=== PATIENT | male | born 1945 | race Caucasian/White ===

== ENCOUNTER 2019-10-01 12:26 | Emergency (ER) | payer MEDICARE, SELFPAY ==
[2019-10-01 12:29] VITALS: BP 159/99; PULSE 110; RESP 19; TEMP 36.4; O2SAT 100
--- NOTE | 2019-10-01 13:25 | ED.MALEGU ---
HPI - Male Genitourinary General Chief complaint: Urogenital-Male Stated complaint: plumbing problem Time Seen by Provider: 10/01/19 12:59 Source: patient Mode of arrival: ambulatory Limitations: no limitations History of Present Illness HPI Narrative: This patient is a 74 year old male who presents for evaluation of dysuria, urinary urgency and urinary hesitancy for 3 days. PAtient reports he has an increased urge to urinate and when he does it is only dribbles. He also reports burning with urination.HE had lower abdominal pressure but that resolved after taking over the counter prostate medication. He denies nausea, vomiting, back pain, fever or chills. He denies previous history of prostate enlargement or urinary retention. MD Complaint: dysuria Related Data Home Medications Medication Instructions Recorded Confirmed atorvastatin 10/01/19 lisinopril-hydrochlorothiazide tablet 10/01/19 triamcinolone acetonide TOPICAL 10/01/19 Allergies Allergy/AdvReac Type Severity Reaction Status Date / Time No Known Allergies Allergy Unknown Verified 10/01/19 12:36 Review of Systems Review of Systems: All systems reviewed & are unremarkable except as noted in HPI and below PMFSH Past Medical History Medical History (Updated 10/01/19 @ 14:22 by Lisa Trinidad MD) Hypertension Kidney stones Surgical History Surgical History (Updated 10/01/19 @ 13:29 by Lisa Trinidad MD) H/O lithotripsy Social History Social History (Updated 10/01/19 @ 13:30 by Lisa Trinidad MD) Smoking packs per day: 1 Smoking cigarettes per day: 20.0 Alcohol intake: never Substance use: never Exam Narrative: Exam Narrative: GENERAL: Well-appearing, well-nourished, and in no acute distress. HEAD: Normocephalic, atraumatic EYES: PERRLA and EOMI, conjunctiva clear without discharge THROAT:Mucous membranes moist, Oropharynx normal without erythema, exudate, peritonsillar swelling or fluctuance NECK: Supple, without lymphadenopathy or mass RESPIRATORY: No respiratory distress, Airway patent, Respirations non-labored, Clear to auscultation without rales, rhonchi or wheeze HEART: Regular rate and rhythm. No murmur heard. Normal peripheral pulses. ABDOMEN: Soft, nontender, nondistended, normal active bowel sounds. No masses. No rebound or guarding, No organomegaly. EXTREMITIES: No edema, normal strength with full range of motion. SKIN: Warm, dry, normal color without rash NEURO: Alert and oriented x3. CN 2-12 grossly intact. No focal deficits. PSYCH: Normal mood and affect. Course Reevaluation(s) Reevaluation #1: Patient had bladder scan performed and he only had 100 cc in bladder. He was able to urinate . He will be treated for UTI and placed on flomax. Date: 10/01/19 Time: 14:21 Vital Signs Vital signs: Vital Signs Temperature 97.6 F 10/01/19 12:29 Pulse Rate 110 H 10/01/19 12:29 Respiratory Rate 19 10/01/19 12:29 Blood Pressure 159/99 H 10/01/19 12:29 Pulse Oximetry 100 10/01/19 12:29 Temperature 97.6 F 10/01/19 12:29 Pulse Rate 90 10/01/19 14:54 Respiratory Rate 20 10/01/19 14:54 Blood Pressure 142/80 H 10/01/19 14:54 Pulse Oximetry 99 10/01/19 14:54 MDM - Male Genitourinary Lab Data Attestation: I reviewed the patient's lab results. Labs: Lab Results 10/01/19 Range/Units 13:34 Urine Color Yellow (Yellow) Urine Appearance Clear (Clear) Urine pH 6.0 (5.0-9.0) Ur Specific [place] 1.019 (1.001-1.035) Urine Protein 2+ H (Negative) mg/dL Urine Glucose (UA) Negative (Negative) mg/dL Urine Ketones Negative (Negative) mg/dL Ur Blood (Man) 1+ H (Negative) Urine Nitrate Negative (Negative) Urine Bilirubin Negative (Negative) Urine Urobilinogen 2.0 H (<2.0) mg/dL Leukocyte Esterase Rfl 1+ H (Negative) ARMIDA/UL Urine RBC 21-50 H (0-2) /hpf Urine WBC 16-20 H /hpf Urine Bacteria Trace /hpf Hyaline Casts
[2019-10-01 13:44] LABS: Add Urine Microscopic? YES; Appearance Urine Clear (Clear); Bacteria Urine Trace /hpf; Bilirubin Urine Negative (Negative); Blood Urine 1+ (Negative); Color Urine Yellow (Yellow); Glucose Urine UA Negative (Negative); Ketones Urine Negative (Negative); Leukocyte Esterase Ur 1+ LEU/UL (Negative); Mucus Urine Few /lpf; Nitrate Urine Negative (Negative); Protein Urine 2+ mg/dL (Negative); RBC Urine 21-50 /hpf (0-2); Specific Grav Ur 1.019 (1.001-1.035); WBC Urine 16-20 /hpf
[2019-10-01] MEDS: cefTRIAXone 1 GM VIAL IM (14:45)
[2019-10-01] MEDS: LIDOCAINE HCL 1% LOCAL INJ 20 ML VIAL (14:45)
[2019-10-01 14:54] VITALS: BP 142/80; PULSE 90; RESP 20; O2SAT 99
== END 2019-10-01 14:56 | disposition home or self-care (01) ==
PROVIDERS: Emergency Medicine; Emergency Provider General Practice; PCP Family Medicine
DX: N39.0 Urinary tract infection, site not specified (principal); Z87.442 Personal history of urinary calculi; I10 Essential (primary) hypertension; F17.210 Nicotine dependence, cigarettes, uncomplicated
CPT/HCPCS: 81001; 87077; 87086; 87088; 96372; 99283; J0696

== ENCOUNTER 2020-03-12 07:34 | Outpatient (CLI) | payer MEDICARE, SELFPAY ==
--- NOTE | ~2020-03-12 | US_ITS ---
EXAMINATION: US aorta DATE: 03/12/2020 15:29 INVENTORY CONTROL ANALYST INDICATION: Abdominal aortic aneurysm TECHNIQUE: Grayscale, color Doppler, and pulsed Doppler images of the aorta and common iliac arteries were obtained. COMPARISON: 09/04/2018. FINDINGS: The proximal aorta measures 3.4 cm greatest sagittal dimension. The mid aorta measures 4 cm greatest sagittal dimension. The distal aorta measures 2.4 cm greatest sagittal dimension. The right common in ternal iliac artery measures 1.6 cm. The left common iliac artery measures 1.8 cm. There is diffuse a therosclerosis. IMPRESSION: 1. Stable suprarenal fusiform abdominal aortic aneurysm measuring 4 cm greatest sagittal dimension. Reviewed, dictated and finalized at location A. NTORY CONTROL ANALYST
== END 2020-03-12 07:35 | disposition home or self-care (01) ==
LOC: ANHIMG 07:40
PROVIDERS: PCP Family Medicine; Visit Provider Family Medicine
DX: I71.4 Abdominal aortic aneurysm, without rupture (principal)
CPT/HCPCS: 76775

== ENCOUNTER 2021-01-09 12:06 | Emergency (ER) | payer MEDICARE, SELFPAY ==
[2021-01-09] VITALS (11 sets, daily range): BP systolic 139–166; BP diastolic 81–100; PULSE 98–113; RESP 22–28; O2SAT 93–97
--- NOTE | ~2021-01-09 | XR_ITS ---
EXAMINATION: XR chest 2V EXAM DATE: 01/09/2021 12:26 INDICATION: Shortness of breath. TECHNIQUE: Frontal and lateral projections of the chest obtained and reviewed. There is no prior keshia dy for comparison. FINDINGS: The lungs are hyperinflated which can be seen with chronic obstructive pulmonary disease ( a clinical diagnosis of functional impairment), but is not diagnostic of it. The lungs are clear. T here are no pleural effusions. The cardiomediastinal silhouette is within normal limits. There is n o pneumothorax suspected. The bones and soft tissues are unremarkable. IMPRESSION: 1. No acute cardiopulmonary findings. 2. Hyperinflation. Reviewed, dictated and finalized at location B.
--- NOTE | 2021-01-09 12:11 | ECG_ITS ---
Measurements Intervals [place] Rate: 117 P: 46 [place]: 176 QRS: -28 QRSD: 90 T: 87 QT: 409 QTc: 571 Interpretive Statements SINUS TACHYCARDIA FREQUENT VENTRICULAR PREMATURE COMPLEXES INCOMPLETE RIGHT BUNDLE BRANCH BLOCK BORDERLINE ST-T WAVE ABNORMALITY- HIGH LATERAL LEADS BASELINE ARTIFACT- I, II, III, AVR, AVL, AVF, V1, V3-V6 ABNORMAL ECG Electronically Signed On 01-09-2021 12:47:05 CDT by Alejo Cyr D.O.
--- NOTE | 2021-01-09 12:52 | ED.GENADULT ---
HPI - General Adult General Chief complaint: Shortness of Breath/Dyspnea Stated complaint: sob Time Seen by Provider: 01/09/21 12:46 Source: patient and family Mode of arrival: ambulatory Limitations: no limitations History of Present Illness HPI narrative: Patient is here for shortness of breath. Is been going on for several months but worse in the last week. He is unable to tolerate any humidity and he is unable to lie flat in bed usually sleeps in his recliner, he has had extensive swelling of both his lower extremities. He is unable to urinate a full stream and is currently being treated for a UTI. kong lopez at discharge Onset (ago): week(s) Related Data Home Medications Medication Instructions Recorded Confirmed atorvastatin HS 10/01/19 lisinopril-hydrochlorothiazide tablet DAILY 10/01/19 triamcinolone acetonide TOPICAL 10/01/19 ciprofloxacin HCl BID 01/09/21 Allergies Allergy/AdvReac Type Severity Reaction Status Date / Time No Known Allergies Allergy Unknown Verified 01/09/21 12:38 Review of Systems Review of Systems: All systems reviewed & are unremarkable except as noted in HPI and below PMFSH Past Medical History Medical History (Updated 01/09/21 @ 18:21 by Mohini Aburto PA-C) Hypertension Kidney stones Surgical History Surgical History (Updated 10/01/19 @ 13:29 by Lisa Trinidad MD) H/O lithotripsy Social History Social History (Updated 10/01/19 @ 13:30 by Lisa Trinidad MD) Smoking packs per day: 1 Smoking cigarettes per day: 20.0 Alcohol intake: never Substance use: never Course Course Emergency Course: Has put out 1800 cc of urine with Lasix. BNP is surprisingly low. Patient states he does feel somewhat better after the Lasix and [address] Jaquez primary care physician. He gave recommendations for home medication regimen and follow-up with him. Pt doesn't want Symbicort. Will discharge with albuterol only. Pt is feeling better and lung sounds are improved. Vital Signs Vital signs: Vital Signs Pulse Rate 113 H 01/09/21 12:29 Respiratory Rate 23 H 01/09/21 12:29 Blood Pressure 166/90 H 01/09/21 12:29 Pulse Oximetry 97 01/09/21 12:29 Pulse Rate 108 H 01/09/21 15:15 Respiratory Rate 26 H 01/09/21 15:15 Blood Pressure 140/90 01/09/21 15:15 Pulse Oximetry 93 01/09/21 15:15 Medical Decision Making Vital Signs Vital Signs: Vital Signs Pulse Rate 113 H 01/09/21 12:29 Respiratory Rate 23 H 01/09/21 12:29 Blood Pressure 166/90 H 01/09/21 12:29 Pulse Oximetry 97 01/09/21 12:29 Pulse Rate 108 H 01/09/21 15:15 Respiratory Rate 26 H 01/09/21 15:15 Blood Pressure 140/90 01/09/21 15:15 Pulse Oximetry 93 01/09/21 15:15 Lab Data Result diagrams: 01/09/21 12:44 01/09/21 13:28 Labs: Lab Results 01/09/21 01/09/21 01/09/21 Range/Units 12:44 13:27 13:28 WBC 11.3 H (4.5-10.0) K/mm3 RBC 5.32 (4.6-6.20) M/mm3 Hgb 16.2 (14.0-18.0) g/dL Hct 51.7 (42.0-52.0) % MCV 97.2 (80-100) fl MCH 30.5 (26-34) pg MCHC 31.3 L (32-36) g/dl RDW 13.2 (11.5-14.5) % Plt Count 254 (150-375) k/mm3 MPV 10.4 (7.4-10.4) fl Immature Gran % (Auto) 0.6 H (0-0.5) % Neut % (Auto) 67.6 (45.5-73.1) % Lymph % (Auto) 19.0 (18.3-44.2) % [place] % (Auto) 11.1 H (2.6-8.5) % Eos % (Auto) 1.2 (0-4.4) % Baso % (Auto) 0.5 (0.2-1.2) % Lymph # (Auto) 2.14 (0.9-3.2) K/mm3 [place] # (Auto) 1.3 H (0.1-0.6) K/mm3 Eos # (Auto) 0.1 (0-0.3) K/mm3 Baso # (Auto) 0.1 (0.0-0.1) K/mm3 Abs Immat Gran (auto) 0.07 H (0.00-0.031) K/mm3 Absolute Neuts (auto) 7.6 H (1.3-6.7) K/mm3 Absolute Nucleated RBC 0.0 (0.0-0.012) K/mm3 Nucleated RBC % 0.0 (0.0-0.2) % Platelet Estimate Adequate (Adequate) % Immature Plt Fraction 4.1 (0.9-11.2) % Sodium 138 (137-145) mmol/L Potassium 4.1 (3.4-5.
[2021-01-09 12:58] LABS: Basophils Absolute Auto 0.1 K/mm3 (0.0-0.1); Basophils Percent Auto 0.5 % (0.2-1.2); Eosinophils Absolute Auto 0.1 K/mm3 (0-0.3); Eosinophils Percent Auto 1.2 % (0-4.4); Hematocrit 51.7 % (42.0-52.0); Hemoglobin 16.2 g/dL (14.0-18.0); Immature Granulocyte Absolute 0.07 K/mm3 (0.00-0.031); Immature Granulocyte Percent A 0.6 % (0-0.5); Immature Platelet Fraction Pct 4.1 % (0.9-11.2); Lymphocytes Absolute Auto 2.14 K/mm3 (0.9-3.2); Mean Corpuscular HGB Conc 31.3 g/dl (32-36); Mean Corpuscular Hemoglobin 30.5 pg (26-34); Mean Corpuscular Volume 97.2 fl (80-100); Mean Platelet Volume 10.4 fl (7.4-10.4); Monocytes Absolute Auto 1.3 K/mm3 (0.1-0.6); Monocytes Percent Auto 11.1 % (2.6-8.5); Neutrophils Absolute Auto 7.6 K/mm3 (1.3-6.7); Neutrophils Percent Auto 67.6 % (45.5-73.1); Platelet Count Result 254 k/mm3 (150-375); Red Blood Count 5.32 M/mm3 (4.6-6.20); Red Cell Distribution Width 13.2 % (11.5-14.5); White Blood Count 11.3 K/mm3 (4.5-10.0)
[2021-01-09 13:45] LABS: Platelet Estimate Adequate (Adequate)
[2021-01-09 13:48] LABS: Anion Gap 6 mmol/L (8-16); Blood Urea Nitrogen 12 mg/dL (9-20); Calcium 8.8 mg/dL (8.4-10.2); Carbon Dioxide 29 mmol/L (22-30); Chloride 103 mmol/L (98-107); Estimated CRCL calculation 72 ml/min; Estimated Glomerular Filt Rate > 60; Glucose 128 mg/dL (65-110); Potassium 4.1 mmol/L (3.4-5.0); Sodium 138 mmol/L (137-145)
[2021-01-09] MEDS: IPRATROPIUM BR 0.02% INH SOLN 0.5 MG/2.5 ML VIAL INHALATION (14:06)
[2021-01-09] MEDS: ALBUTEROL SULFATE NEB 2.5 MG/0.5 ML INH INHALATION (14:06)
[2021-01-09] MEDS: FUROSEMIDE INJ 40 MG/4 ML VIAL IV PUSH (14:11)
[2021-01-09 14:25] LABS: Add Urine Microscopic? YES; Appearance Urine Clear (Clear); Bilirubin Urine Negative (Negative); Blood Urine 1+ (Negative); Color Urine Straw (Yellow); Glucose Urine UA Negative (Negative); Ketones Urine Negative (Negative); Leukocyte Esterase Ur Negative LEU/UL (Negative); Nitrate Urine Negative (Negative); Protein Urine Negative (Negative); Specific Grav Ur 1.008 (1.001-1.035); Urobilinogen Urine Negative mg/dL (<2.0); WBC Urine 0-3 /hpf
[2021-01-09 14:35] LABS: NT Pro B Type Natriuretic Pept 213 pg/mL (5-100)
[2021-01-09] MEDS: ALBUTEROL SULFATE NEB 2.5 MG/3 ML INH INHALATION (16:19)
[2021-01-09] MEDS: methylPREDNISolone SOD SUCC 40 MG VIAL IV PUSH (16:30)
--- NOTE | 2021-01-09 18:43 | PC.NURSE ---
1340- 16 fr lopez cath to drainage bag initiated per verbal order from rich clemente to nurse hebert. will remove cath upon d/c from ed per rich clemente. 1830-lopez d/c intact without difficulty per request of catrina clemente
== END 2021-01-09 18:45 | disposition home or self-care (01) ==
PROVIDERS: Physician Assistant; Emergency Provider Emergency Medicine; PCP Family Medicine
DX: I50.9 Heart failure, unspecified (principal); J44.9 Chronic obstructive pulmonary disease, unspecified; Z71.6 Tobacco abuse counseling; I11.0 Hypertensive heart disease with heart failure; Z87.442 Personal history of urinary calculi
CPT/HCPCS: 36415; 71046; 80048; 81001; 83880; 85025; 85055; 93005; 94640; 96374; 96375; 99284; J1940; J2920

== ENCOUNTER 2021-01-27 12:26 | Inpatient (IN) | payer MEDICARE, SELFPAY ==
[2021-01-27] VITALS (10 sets, daily range): BP systolic 118–139; BP diastolic 64–90; PULSE 95–124; RESP 20–28; TEMP 35.7–38.2; O2SAT 93–98; BMI 28.6
--- NOTE | ~2021-01-27 | XR_ITS ---
XR chest 1V portable 02/01/2021 11:05 Indication: COPD. Pulmonary embolism. Shortness of breath. Procedure: AP portable chest Comparison: 01/29/2021 Findings: Patchy left-sided airspace disease, most confluent in the left upper lobe, compatible with pneumonia. There is emphysema. Heart size normal. No pneumothorax identified. No acute osseous abnorm ality. Impression: 1: Patchy predominately left upper lobe airspace disease, compatible with pneumonia. Reviewed, dictated and finalized at location A. Impression: 1: Patchy predominately left upper lobe airspace disease, compatible with pneum onia.
--- NOTE | ~2021-01-27 | CT_ITS ---
EXAMINATION: CTA chest PE protocol DATE: 01/27/2021 13:37 INDICATION: Chest pain and shortness of breath TECHNIQUE: Computed tomography angiography (CTA) of the chest was performed with 100 mL Omnipaque-350 intravenous contrast timed to evaluate the pulmonary arteries. Coronal maximum intensity projection 3D-reconstructions were created by the technologist. The dose-length product (DLP) was 495.30 mGy-cm. Automated exposure control and iterative reconstruction technique were employed. COMPARISON: 03/13/2018 and chest radiograph dated 01/09/2021 FINDINGS: The pulmonary arteries are well-opacified. Respiratory motion artifact limits the examinat ion. There are acute emboli in the proximal left upper lobe pulmonary arteries. Emboli are also noted in the lingula and left lower lobe. Evaluation of the lung bases is limited by motion artifact. Ther e are opacities of the left upper lobe. Moderate emphysema is noted. There is no pleural effusion or pneumothorax. The heart size is normal. There is calcified and noncalcified atherosclerosis of aorta. There is mild mediastinal lymphadenopathy, likely reactive. There is mild thoracic spondylosis. IMPRESSION: 1. Acute emboli in proximal branches of the left upper lobe pulmonary arteries and segmental branches of the lingula and left lower lobe. Left upper lobe opacities may reflect pulmonary infarct. These f indings were discussed with Dr. Wyatt Rudd DO in the Emergency Department at 1356 hours on . Reviewed, dictated and finalized at location A. IMPRESSION: 1. Acute emboli in proximal branches of the left upper lobe pulmonary arteries and segmental branches of the lingula and left lower lobe. Left upper lobe opac ities may reflect pulmonary infarct. These findings were discussed with Dr. Zoran Rudd DO in the Emergency Department at 1356 hours on 01/27/2021.
--- NOTE | ~2021-01-27 | US_ITS ---
EXAMINATION: US venous doppler [facility] DATE: 01/28/2021 08:06 INDICATION: Bilateral lower limb swelling TECHNIQUE: Abernathy scale images without and with compression and Doppler images of the bilateral lower e xtremity veins were obtained. COMPARISON: None FINDINGS: The right common femoral vein, profunda femoral vein, femoral vein, popliteal vein, peroneal trunk, p osterior tibial veins, and greater saphenous vein are patent. The left common femoral vein, profunda femoral vein, femoral vein, popliteal vein, peroneal trunk, po sterior tibial veins, and greater saphenous vein are patent. A left Adames's cyst is noted. IMPRESSION: 1. Patent bilateral lower extremity veins. No evidence of deep venous thrombosis. Reviewed, dictated and finalized at location A. IMPRESSION: 1. Patent bilateral lower extremity veins. No evidence of deep venous thrombosi s.
--- NOTE | ~2021-01-27 | XR_ITS ---
EXAMINATION: XR chest 1V portable EXAM DATE: 01/29/2021 10:25 INDICATION: Worsening shortness of breath. On heparin anticoagulation. Lung crackles. TECHNIQUE: Portable AP frontal chest x-ray was obtained. Comparison is made to prior examination from 01/27/2021. FINDINGS: There is extensive left upper lobe airspace disease, smaller amount in the left lower lobe. Accounting for differences in technique, there is no significant interval change. The cardiomediasti nal silhouette is prominent but magnified on this AP technique. There is no pneumothorax suspected. T here are no pleural effusions. Some thoracic spondylosis. IMPRESSION: Left-sided multifocal pneumonia not significantly changed. Reviewed, dictated and finalized at location B.
--- NOTE | ~2021-01-27 | XR_ITS ---
EXAMINATION: XR chest 1V portable INDICATION: Shortness of breath and cough TECHNIQUE: Portable AP chest at 1255 hours COMPARISON: 01/09/2021 FINDINGS: Diffuse airspace opacities have developed, most prominent in the left mid and upper lung zo ashtyn. There are areas of scarring/atelectasis of the lung bases. No pleural effusion or pneumothorax i s identified. The cardiomediastinal silhouette is normal. IMPRESSION: 1. Interval development of diffuse airspace opacities, consistent with atelectasis versus pneumonia v ersus pulmonary edema. Reviewed, dictated and finalized at location A. IMPRESSION: 1. Interval development of diffuse airspace opacities, consistent with atelecta sis versus pneumonia versus pulmonary edema.
--- NOTE | 2021-01-27 12:39 | ECG_ITS ---
Measurements Intervals [place] Rate: 123 P: 46 [place]: 156 QRS: -18 QRSD: 82 T: 80 QT: 291 QTc: 416 Interpretive Statements SINUS TACHYCARDIA INCOMPLETE RIGHT BUNDLE BRANCH BLOCK NONSPECIFIC ST & T-WAVE ABNORMALITY ABNORMAL ECG Electronically Signed On 01-27-2021 14:22:33 CDT by Alejo Cyr D.O.
[2021-01-27 13:00] LABS: Basophils Percent Auto 0.2 % (0.2-1.2); Eosinophils Percent Auto 0.1 % (0-4.4); Hematocrit 40.3 % (42.0-52.0); Hemoglobin 12.8 g/dL (14.0-18.0); Immature Granulocyte Absolute 0.25 K/mm3 (0.00-0.031); Immature Granulocyte Percent A 1.2 % (0-0.5); Lymphocytes Absolute Auto 1.38 K/mm3 (0.9-3.2); Lymphocytes Percent Auto 6.6 % (18.3-44.2); Mean Corpuscular HGB Conc 31.8 g/dl (32-36); Mean Corpuscular Hemoglobin 30.2 pg (26-34); Mean Platelet Volume 10.2 fl (7.4-10.4); Monocytes Absolute Auto 2.8 K/mm3 (0.1-0.6); Monocytes Percent Auto 13.5 % (2.6-8.5); Neutrophils Absolute Auto 16.3 K/mm3 (1.3-6.7); Neutrophils Percent Auto 78.4 % (45.5-73.1); Platelet Count Result 412 k/mm3 (150-375); Red Blood Count 4.24 M/mm3 (4.6-6.20); White Blood Count 20.8 K/mm3 (4.5-10.0)
[2021-01-27] MEDS: ASPIRIN 81 MG CHEWABLE TABLET 324 MG PO (13:06)
--- NOTE | 2021-01-27 13:08 | ED.CHESTPAIN ---
HPI - Chest Pain General Chief Complaint: Chest Pain Stated Complaint: SOB, CHEST PAIN Time Seen by Provider: 01/27/21 12:38 Source: RN notes reviewed History of Present Illness HPI narrative: Patient presents emergency department from home for shortness of breath. Patient states he had progressively worsening shortness of breath over the past 2 weeks he states is been associate with a cough this been nonproductive as well as a fever up to 101 degrees this morning patient states he took ibuprofen for the fever he states that he has been being worked up by his PCP and is currently on Levaquin which he has been taking for the past 4 days for pneumonia states he also recently had a echocardiogram to evaluate him for possible heart failure patient states that he is a former smoker he denies any nausea or vomiting or diarrhea states he has been having some left-sided chest pain described as sharp and stabbing Related Data Home Medications Medication Instructions Recorded Confirmed atorvastatin HS 10/01/19 lisinopril-hydrochlorothiazide tablet DAILY 10/01/19 triamcinolone acetonide TOPICAL 10/01/19 ciprofloxacin HCl BID 01/09/21 Allergies Allergy/AdvReac Type Severity Reaction Status Date / Time No Known Allergies Allergy Unknown Verified 01/27/21 12:30 Review of Systems Review of Systems: Gen.: Reports fevers ENT: Denies congestion Respiratory: See HPI CV: See HPI GI: Denies abdominal pain nausea, emesis or diarrhea Musculoskeletal: Denies back pain or muscle pain Neuro: Denies numbness, tingling, weakness or focal weakness Skin: Denies rash Except as documented, all other systems reviewed and negative PMFSH Past Medical History Medical History Hypertension Kidney stones Surgical History Surgical History (Updated 10/01/19 @ 13:29 by Lisa Trinidad MD) H/O lithotripsy Social History Social History Smoking packs per day: 1 Smoking cigarettes per day: 20.0 Alcohol intake: never Substance use: never Exam Narrative: APPEARANCE: No acute distress, nontoxic, resting in bed EYES: EOMI HEENT: Normocephalic, atraumatic, OMM RESPIRATORY: No respiratory distress coarse breath sounds throughout the left lung field no wheezing CARDIOVASCULAR: Tachycardic and regular without murmurs rubs or gallops. ABDOMINAL: Soft, nontender, nondistended, no rebound or guarding MUSCULOSKELETAl: Moves all extremities. No clubbing, cyanosis or edema. NEURO: Awake and alert. Following commands, speech normal, no focal deficits SKIN:: Warm, dry. No rashes lesions or abrasions PSYCHIATRIC: Normal affect/mood, Course Course Emergency Course: Called and discussed with SHANTI Vu for Dr. Estevez presentation work-up agrees admission recommends patient on heparin drip request patient be started on Rocephin and Zithromax and vancomycin Discussed with patient and family results of workup and diagnosis. Discussed need for admission. Patient and family understand and agree to current treatment plan Vital Signs Vital signs: Vital Signs Temperature 98.6 F 01/27/21 12:27 Pulse Rate 124 H 01/27/21 12:27 Respiratory Rate 20 01/27/21 12:27 Blood Pressure 122/90 01/27/21 12:27 Pulse Oximetry 93 01/27/21 12:27 Temperature 100.7 F H 01/27/21 13:15 Pulse Rate 124 H 01/27/21 12:27 Respiratory Rate 20 01/27/21 12:27 Blood Pressure 122/90 01/27/21 12:27 Pulse Oximetry 93 01/27/21 12:27 MDM - Chest Pain Lab Data Result diagrams: 01/27/21 12:52 01/27/21 12:52 Labs: Lab Results 01/27/21 01/27/21 01/27/21 Range/Units 12:52 12:52 12:52 WBC 20.8 H (4.5-10.0) K/mm3 RBC 4.24 L (4.6-6.20) M/mm3 Hgb 12.8 L D (14.0-18.0) g/dL Hct 40.3 L (42.0-52.0) % MCV 95.0 (80-100) fl MCH 30.2 (26-34) pg MCHC 31.8 L (32-36) g/dl RDW 14.0 (
[2021-01-27 13:09] LABS: Anion Gap 7 mmol/L (8-16); Blood Urea Nitrogen 11 mg/dL (9-20); Calcium 8.5 mg/dL (8.4-10.2); Carbon Dioxide 30 mmol/L (22-30); Chloride 101 mmol/L (98-107); Estimated CRCL calculation 72 ml/min; Estimated Glomerular Filt Rate > 60; Glucose 125 mg/dL (65-110); Potassium 4.2 mmol/L (3.4-5.0); Sodium 138 mmol/L (137-145)
[2021-01-27 13:18] LABS: INR 1.1; Prothrombin Time 14.1 Seconds (11.1-14.7)
[2021-01-27 13:19] LABS: Partial Thromboplastin Time 37.4 SECONDS (22.3-36.8)
[2021-01-27 13:22] LABS: NT Pro B Type Natriuretic Pept 733 pg/mL (5-100); Troponin I < 0.012 ng/mL (0.000-0.034)
[2021-01-27] MEDS: SODIUM CHLORIDE 0.9% IV 1,000 ML 999 ML IV CONT (14:00)
[2021-01-27] MEDS: HEPARIN SODIUM 5,000 UNITS/ML VIAL 5500 UNITS IV PUSH (14:47)
[2021-01-27] MEDS: HEPARIN SOD/D5W 100 UNITS/ML 25,000 UNITS/250 ML BAG 13 UNITS IV CONT (14:47)
--- NOTE | 2021-01-27 17:30 | PM.IMHP ---
H&P: HPI History of Present Illness Date/Time: 01/27/21 17:30 Chief Complaint: Shortness of breath, chest pain, and fever. Narrative: This is a pleasant 75-year-old male smoker with COPD, hypertension, hyperlipidemia, and benign prostatic hyperplasia who presented to the emergency department earlier today via private vehicle from home for evaluation shortness of breath, chest pain, and fever. The patient reports progressive dyspnea on lesser and lesser exertion over the past 2 months or so however it has gotten much worse over the past several weeks. In fact he was seen emergency department on 01/09/2021 with the same complaints at which time he also reported extensive lower extremity swelling as well as orthopnea. It was thought that he likely had congestive heart failure and he was given Lasix with good urine output. He took Lasix for several days thereafter with improvement in his swelling. He followed up with his primary care provider and was referred to [facility] cardiology for evaluation of the edema as well as left anterior chest pain that he had been having for several weeks. Per patient report, he had an echocardiogram done this past which showed no evidence of congestive heart failure. In any regard over the last several days he has had a nonproductive cough with generalized malaise as well as fever up to 101?. He continues to have left anterior pleuritic chest pain. After speaking with his primary care provider he was started on Levaquin though he has not seen much improvement, prompting the trip to the emergency department. CTA of the chest showed acute pulmonary emboli of the left lung with left upper lobe opacities which may reflect pulmonary infarction for which he has been started on a heparin drip. His white blood cell count was quite elevated at 20.8 with a CRP of 33.9 and he has also been started on empiric antibiotics for possible bacterial pneumonia. He received the [employer] COVID vaccination in July 2020 and he has no known exposure to those positive for COVID 19. He denies dysphagia and concerns for aspiration. He has no previous history of venous thromboembolism. No known history of malignancy. Review of Systems Review of Systems: Twelve systems were reviewed with pertinent positives and negatives as per HPI. No significant headache. He denies sinus congestion and sore throat. He has been having some left-sided pleuritic chest pain as per HPI. No orthopnea or PND. His lower extremity edema has improved however has come back a bit in the right leg. He denies vomiting and diarrhea. Except as documented, all other systems were reviewed and are negative. [facility] Past Medical History Medical History (Updated 01/28/21 @ 00:55 by Mirella Aceves PA-C) Benign prostatic hyperplasia Chronic obstructive pulmonary disease Hyperlipidemia Hypertension Kidney stones Psoriasis Tobacco dependence Surgical History Surgical History (Updated 01/27/21 @ 15:55 by Mirella Aceves PA-C) History of cataract extraction with lens replacement History of inguinal hernia repair History of lithotripsy History of open reduction and internal fixation (ORIF) procedure Right ankle fracture. Family History Family History (Updated 01/27/21 @ 15:55 by Mirella Aceves PA-C) Mother Parkinson's disease Lung cancer Sibling Acute myocardial infarction Diabetes mellitus Father Pulmonary embolism Social History Social History (Updated 01/28/21 @ 00:56 by Mirella Aceves PA-C) Social History: Surrogate decision maker: Micki Luna, spouse. Code status: Full code. Smoking packs per day: 1 Smoking cigarettes per day: 20.0 Years smoked: 55 Smoking pack-years: 55.00 Smoking status: Current every day smoker Tobacco type: cigarettes Alcohol intake: never Substance use: never Additional living arrangements comments: Resides in [place] with his . 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
--- NOTE | 2021-01-27 17:33 | PC.NURSE ---
This patient, Ivan Luna, was admitted to IMU Room 232-01. Patient/family oriented to hospital policies and general routines including ID bracelet, bed and alarms, visiting hours, pain management, procedures, bathroom and other care routines, personal items, smoking policy, room service/diet, and visiting hours. Information on how to activate the Rapid Response Team has been discussed. Patient/Family are encouraged to report perceived risks to care and to ask questions if they do not understand what they are told or what they should do.
[2021-01-27 18:07] LABS: Lactate Dehydrogenase 368 U/L (313-618)
[2021-01-27 18:20] LABS: Troponin I < 0.012 ng/mL (0.000-0.034)
[2021-01-27 18:44] LABS: CRP 33.9 mg/dL (<1.0)
[2021-01-27 19:24] LABS: Procalcitonin 0.3 ng/mL
[2021-01-27 19:58] LABS: Partial Thromboplastin Time 61.7 SECONDS (22.3-36.8)
[2021-01-27 20:08] LABS: Troponin I < 0.012 ng/mL (0.000-0.034)
[2021-01-27] MEDS: HEPARIN SODIUM 5,000 UNITS/ML VIAL 3000 UNITS IV PUSH (21:38)
[2021-01-27] MEDS: HYDROcodone/acetaminophen (*CRX) 5-325 MG TABLET 1 TAB PO (21:46)
[2021-01-28] VITALS (13 sets, daily range): BP systolic 121–142; BP diastolic 52–72; PULSE 92–117; RESP 18–22; TEMP 36.5–37; O2SAT 95–99
[2021-01-28 04:10] LABS: Basophils Absolute Auto 0.1 K/mm3 (0.0-0.1); Basophils Percent Auto 0.4 % (0.2-1.2); Eosinophils Absolute Auto 0.1 K/mm3 (0-0.3); Eosinophils Percent Auto 0.4 % (0-4.4); Hematocrit 35.3 % (42.0-52.0); Hemoglobin 11.1 g/dL (14.0-18.0); Immature Granulocyte Absolute 0.31 K/mm3 (0.00-0.031); Immature Granulocyte Percent A 1.6 % (0-0.5); Lymphocytes Absolute Auto 1.52 K/mm3 (0.9-3.2); Lymphocytes Percent Auto 7.9 % (18.3-44.2); Mean Corpuscular HGB Conc 31.4 g/dl (32-36); Mean Corpuscular Hemoglobin 30.3 pg (26-34); Mean Corpuscular Volume 96.4 fl (80-100); Mean Platelet Volume 9.8 fl (7.4-10.4); Monocytes Absolute Auto 2.8 K/mm3 (0.1-0.6); Monocytes Percent Auto 14.7 % (2.6-8.5); Neutrophils Absolute Auto 14.5 K/mm3 (1.3-6.7); Platelet Count Result 363 k/mm3 (150-375); Red Blood Count 3.66 M/mm3 (4.6-6.20); Red Cell Distribution Width 13.9 % (11.5-14.5); White Blood Count 19.3 K/mm3 (4.5-10.0)
[2021-01-28 04:27] LABS: Alanine Aminotransferase 23 U/L (4-50); Alkaline Phosphatase 117 U/L (38-126); Anion Gap 5 mmol/L (8-16); Aspartate Amino Transferase 27 U/L (17-59); Bilirubin,Total 0.7 mg/dL (0.2-1.3); Blood Urea Nitrogen 11 mg/dL (9-20); Calcium 8.2 mg/dL (8.4-10.2); Carbon Dioxide 32 mmol/L (22-30); Chloride 102 mmol/L (98-107); Estimated CRCL calculation 73 ml/min; Estimated Glomerular Filt Rate > 60; Glucose 113 mg/dL (65-110); Magnesium 2.2 mg/dL (1.6-2.3); Potassium 4.2 mmol/L (3.4-5.0); Sodium 139 mmol/L (137-145)
[2021-01-28] MEDS: HEPARIN SODIUM 5,000 UNITS/ML VIAL 3000 UNITS IV PUSH ×3 (06:56→19:19)
[2021-01-28] MEDS: hydroCHLOROthiazide 12.5 MG CAPSULE PO (08:30)
[2021-01-28] MEDS: lisinopriL 20 MG TABLET PO (08:31)
[2021-01-28] MEDS: HEPARIN SOD/D5W 100 UNITS/ML 25,000 UNITS/250 ML BAG 15 UNITS IV CONT (08:47)
[2021-01-28] MEDS: HYDROcodone/acetaminophen (*CRX) 5-325 MG TABLET 1 TAB PO (09:29)
--- NOTE | 2021-01-28 12:13 | ECG_ITS ---
Measurements Intervals [place] Rate: 96 P: 40 [place]: 145 QRS: -4 QRSD: 86 T: 61 QT: 329 QTc: 417 Interpretive Statements SINUS RHYTHM INCOMPLETE RIGHT BUNDLE BRANCH BLOCK BASELINE ARTIFACT- I, II, III, AVR, AVL, AVF, V1-V6 BORDERLINE ECG Electronically Signed On 01-28-2021 19:18:52 CDT by Alejo Cyr D.O.
[2021-01-28 12:23] LABS: Hematocrit 36.1 % (42.0-52.0); Hemoglobin 11.2 g/dL (14.0-18.0); Mean Corpuscular Hemoglobin 30.3 pg (26-34); Mean Corpuscular Volume 97.6 fl (80-100); Mean Platelet Volume 9.8 fl (7.4-10.4); Platelet Count Result 375 k/mm3 (150-375); Red Cell Distribution Width 14.1 % (11.5-14.5); White Blood Count 21.3 K/mm3 (4.5-10.0)
[2021-01-28 12:34] LABS: Alanine Aminotransferase 22 U/L (4-50); Albumin Level 3.1 g/dL (3.5-5.1); Alkaline Phosphatase 119 U/L (38-126); Anion Gap 5 mmol/L (8-16); Aspartate Amino Transferase 29 U/L (17-59); Bilirubin,Total 0.7 mg/dL (0.2-1.3); Blood Urea Nitrogen 12 mg/dL (9-20); Calcium 8.5 mg/dL (8.4-10.2); Carbon Dioxide 33 mmol/L (22-30); Chloride 101 mmol/L (98-107); Estimated CRCL calculation 73 ml/min; Estimated Glomerular Filt Rate > 60; Glucose 151 mg/dL (65-110); INR 1.1; Potassium 4.3 mmol/L (3.4-5.0); Prothrombin Time 14.2 Seconds (11.1-14.7); Sodium 139 mmol/L (137-145)
[2021-01-28 12:40] LABS: Partial Thromboplastin Time 56.9 SECONDS (22.3-36.8)
[2021-01-28 12:45] LABS: Troponin I < 0.012 ng/mL (0.000-0.034)
--- NOTE | 2021-01-28 13:00 | PM.IMPN ---
Progress Note: A&P Assessment and Plan (1) Sepsis: Code(s): A41.9 - Sepsis, unspecified organism Status: Acute Assessment and Plan: Patient meets sepsis criteria with fever, tachycardia, and leukocytosis in the setting of pneumonia. QSOFA in SOFA scores are only 1, however. Lactic acid levels within normal limits. Blood pressures were reviewed and they have remained stable. Blood cultures pending. Continue on broad-spectrum antibiotics at this time until cultures return Continue monitoring. 01/28/21: 1200 a code akua was called on the patient. Upon evaluation patient is awake and alert, answering questions appropriately. The nurse said that on the patient's telemetry he started Bradying down and it showed asystole. Upon further review of the telemetry strip, 1 lead remained in normal rhythm while the 2nd lead showed asystole. We believe this is an error the patient is otherwise feeling well without any concerns at this time. The patient did not have a cardiac arrest or pause. Have repeat labs were drawn stat which showed continued leukocytosis with elevated neutrophil count, normal renal function and electrolytes, negative troponin. (2) Community acquired pneumonia: Code(s): J18.9 - Pneumonia, unspecified organism Status: Acute Assessment and Plan: Patient was started on Levaquin about 5 days ago for pneumonia though he has not felt much better. He has been started on azithromycin and ceftriaxone for presumed community-acquired pneumonia. Given community prevalence he will be swabbed for COVID-19. As the patient has not been feeling well for several weeks 1 could argue that he has had a viral illness and this pneumonia may be post viral putting him at risk for staph pneumonia. As such will add vancomycin empirically, pending cultures. Procalcitonin was low at 0.3. CRP elevated at 33.9. Continue broad-spectrum antibiotics at this time with IV azithromycin, Rocephin, vancomycin (#2) Sputum g stain showing moderate white blood cells seen, mixed bacterial dang. Culture results pending Urine antigens pneumococcal and Legionella have been ordered and pending Consider pulmonology consultation COVID swab pending and the patient is still on isolation. Continue monitoring respiratory status. (3) Pulmonary embolism: Code(s): I26.99 - Other pulmonary embolism without acute cor pulmonale Status: Acute Assessment and Plan: Chest CTA shows acute emboli in the proximal branches of left upper lobe and segmental branches of the lingula. Radiologist goes on to remark that the left upper lobe opacities may reflect pulmonary infarct however given his constellation of findings to include malaise, fever, and cough he is being treated for pneumonia as above. Patient is on a heparin drip due to his pulmonary embolism and possible infarction He is resting comfortably at 98% on room air. Will continue IV heparin at this time until echocardiogram shows no signs of RV strain will repeat BNP in the morning Continue monitoring. (4) Benign prostatic hyperplasia: Code(s): N40.0 - Benign prostatic hyperplasia without lower urinary tract symptoms Status: Acute Assessment and Plan: No acute issues. Continue tamsulosin. (5) Hypertension: Code(s): I10 - Essential (primary) hypertension Status: Chronic Assessment and Plan: Blood pressures were reviewed and they are stable. Continue antihypertensives and monitor daily. (6) Hyperlipidemia: Code(s): E78.5 - Hyperlipidemia, unspecified Status: Acute Assessment and Plan: Continue statin. LFTs normal. (7)
[2021-01-28 14:28] LABS: Magnesium 2.1 mg/dL (1.6-2.3)
[2021-01-28 18:54] LABS: Partial Thromboplastin Time 66.6 SECONDS (22.3-36.8)
[2021-01-28] MEDS: HEPARIN SOD/D5W 100 UNITS/ML 25,000 UNITS/250 ML BAG 17 UNITS IV CONT (19:18)
[2021-01-28] MEDS: ATORVASTATIN 10 MG TABLET PO (21:05)
[2021-01-29] VITALS (21 sets, daily range): BP systolic 128–146; BP diastolic 61–82; PULSE 92–118; RESP 20–32; TEMP 36.6–37.2; O2SAT 88–99; BMI 28.6
[2021-01-29] MEDS: HEPARIN SOD/D5W 100 UNITS/ML 25,000 UNITS/250 ML BAG 17 UNITS IV CONT (01:19)
[2021-01-29 01:39] LABS: Partial Thromboplastin Time 40.5 SECONDS (22.3-36.8)
[2021-01-29] MEDS: HEPARIN SODIUM 5,000 UNITS/ML VIAL 5500 UNITS IV PUSH (02:38)
[2021-01-29] MEDS: hydroCHLOROthiazide 12.5 MG CAPSULE PO (08:39)
[2021-01-29] MEDS: lisinopriL 20 MG TABLET PO (08:39)
[2021-01-29 08:48] LABS: Basophils Absolute Auto 0.1 K/mm3 (0.0-0.1); Basophils Percent Auto 0.6 % (0.2-1.2); Eosinophils Absolute Auto 0.1 K/mm3 (0-0.3); Eosinophils Percent Auto 0.4 % (0-4.4); Hematocrit 36.4 % (42.0-52.0); Hemoglobin 10.9 g/dL (14.0-18.0); Immature Granulocyte Absolute 0.72 K/mm3 (0.00-0.031); Immature Granulocyte Percent A 3.7 % (0-0.5); Lymphocytes Absolute Auto 2.29 K/mm3 (0.9-3.2); Lymphocytes Percent Auto 11.7 % (18.3-44.2); Mean Corpuscular HGB Conc 29.9 g/dl (32-36); Mean Corpuscular Hemoglobin 30.1 pg (26-34); Mean Corpuscular Volume 100.6 fl (80-100); Mean Platelet Volume 10.6 fl (7.4-10.4); Monocytes Absolute Auto 2.4 K/mm3 (0.1-0.6); Monocytes Percent Auto 12.2 % (2.6-8.5); Neutrophils Percent Auto 71.4 % (45.5-73.1); Platelet Count Result 373 k/mm3 (150-375); Red Blood Count 3.62 M/mm3 (4.6-6.20); Red Cell Distribution Width 14.4 % (11.5-14.5); White Blood Count 19.6 K/mm3 (4.5-10.0)
[2021-01-29 09:02] LABS: Alanine Aminotransferase 20 U/L (4-50); Albumin Level 2.9 g/dL (3.5-5.1); Alkaline Phosphatase 116 U/L (38-126); Anion Gap 2 mmol/L (8-16); Aspartate Amino Transferase 27 U/L (17-59); Bilirubin,Total 0.3 mg/dL (0.2-1.3); Blood Urea Nitrogen 16 mg/dL (9-20); Calcium 8.5 mg/dL (8.4-10.2); Carbon Dioxide 37 mmol/L (22-30); Chloride 97 mmol/L (98-107); Estimated CRCL calculation 73 ml/min; Estimated Glomerular Filt Rate > 60; Glucose 139 mg/dL (65-110); Partial Thromboplastin Time 98.7 SECONDS (22.3-36.8); Sodium 136 mmol/L (137-145)
[2021-01-29] MEDS: FUROSEMIDE INJ 40 MG/4 ML VIAL IV PUSH (10:14)
--- NOTE | 2021-01-29 10:34 | PM.IMPN ---
Progress Note: A&P Assessment and Plan (1) Acute respiratory failure with hypoxia: Code(s): J96.01 - Acute respiratory failure with hypoxia <Unique L. JUDY Hastings - Last Filed: 01/29/21 10:57> Status: Acute <nUique Cui JUDY Hastings - Last Filed: 01/29/21 10:57> Assessment and Plan: I was called by the patient's nurse at 10:00 a.m. because of shortness of breath and hypoxia. The patient had been on 2 L of oxygen overnight for ?comfort in ?even though oxygen saturations were 99 and 98% all night. This morning the nurse tried to wean him off of the oxygen and then he had a coughing fit. Afterwards the patient became hypoxic with oxygen saturations in the 80s. He was placed on 3 L of oxygen with improvement of his saturations. Upon my evaluation of the patient at bedside he has inspiratory crackles and expiratory rhonchi in bilateral lung hernandez. Auditory crackles. Stat chest x-ray was obtained showing Left-sided multifocal pneumonia not significantly changed. I talked with the radiologist who did not see any signs of fluid overload or possible hemorrhage since he is on a heparin drip. PTT this morning was 98.7 and recommendations with heparin drip at this time is to continue the same dose without any boluses. Heparin drip had been stopped during this acute event and stat H&H ordered and pending currently. I talked to my attending provider Dr. Eisenberg who evaluated the patient and and recommended IV Lasix 40 mg, DuoNeb treatment due to his history of COPD and continue monitoring. ABG was obtained and pending as well. Patient is currently 92% on 3 L via nasal cannula. Critical care time of 60 minutes requested on the patient due to acute respiratory failure with hypoxemia, stat labs to be ordered, talking with attending provider, consult him pulmonology, talking with the nurse, reviewing labs and imaging ordered. <Uniquesina Hastings PA-C - Last Filed: 01/29/21 10:57> (2) Sepsis: Code(s): A41.9 - Sepsis, unspecified organism <Unique YunSHANTI acevedo-C - Last Filed: 01/29/21 10:57> Status: Acute <SHANTI Aggarwal-C - Last Filed: 01/29/21 10:57> Assessment and Plan: Patient meets sepsis criteria with fever, tachycardia, and leukocytosis in the setting of pneumonia. QSOFA in SOFA scores are only 1 Lactic acid levels within normal limits. Blood pressures were reviewed and they have remained stable. Blood cultures show no growth at this time Continue on broad-spectrum antibiotics at this time until cultures return Continue monitoring. <Unique YunBERKLEY acevedoC - Last Filed: 01/29/21 10:57> (3) Community acquired pneumonia: Code(s): J18.9 - Pneumonia, unspecified organism <Unique YunJUDY acevedo - Last Filed: 01/29/21 10:57> Status: Acute <Unique HastingsSHANTI-C - Last Filed: 01/29/21 10:57> Assessment and Plan: Patient was started on Levaquin about 5 days ago for pneumonia though he has not felt much better. He has been started on azithromycin and ceftriaxone for presumed community-acquired pneumonia. Given community prevalence he will be swabbed for COVID-19. As the patient has not been feeling well for several weeks 1 could argue that he has had a viral illness and this pneumonia may be post viral putting him at risk for staph pneumonia. As such will add vancomycin empirically, pending cultures. Procalcitonin was low at 0.3. CRP elevated at 33.9, repeat today pending Continue broad-spectrum antibiotics at this time with IV azithromycin, Rocephin, vancomycin (#3) Sputum g stain showing moderate white blood cells seen, mixed bacterial dang. Culture results pending Urine antigens pneumococcal and Legionella have been ordered and pending I will consulte pulmonology at this time given history of COPD, Acute PE, CXR showing unchanged Left-s
[2021-01-29 10:45] LABS: Alveolar/Arterial O2 Gradient 68.7 mmHg; Base Excess ABG 7.6 mEq/l (+/-2.0); Fractional Inspired Oxygen 28 %; HCO3 ABG 34.3 mEq/l (22.0-26.0); Oxygen Content ABG 15.6 %vol (16.0-22.0); Oxygen Saturation ABG 91.1 % (95.0-100.0); Oxyhemoglobin 91.1 % THb (90.0-100.0); PCO2 ABG 58.1 mmHg (35.0-45.0); PO2 ABG 62.4 mmHg (80.0-100.0); PO2 FiO2 Ratio Arterial Blood 2.23 %; Total Hemoglobin 12.2 g/dL (12.0-18.0); pH ABG 7.389 (7.350-7.450)
[2021-01-29 10:46] LABS: Site Drawn RIGHT RADIAL
[2021-01-29 10:47] LABS: Device NASAL CANNULA; Modified Allen's Test Pass
[2021-01-29] MEDS: ALBUTEROL SULFATE NEB 2.5 MG/0.5 ML INH INHALATION ×3 (10:55→20:47)
[2021-01-29] MEDS: IPRATROPIUM BR 0.02% INH SOLN 0.5 MG/2.5 ML VIAL INHALATION ×3 (10:59→20:47)
[2021-01-29 14:03] LABS: CRP 42.1 mg/dL (<1.0)
[2021-01-29] MEDS: HEPARIN SOD/D5W 100 UNITS/ML 25,000 UNITS/250 ML BAG 20 UNITS IV CONT (14:22)
[2021-01-29 18:31] LABS: Partial Thromboplastin Time 78.3 SECONDS (22.3-36.8)
[2021-01-29 19:01] LABS: SARS-CoV-2 RNA PCR Negative
[2021-01-29] MEDS: HYDROcodone/acetaminophen (*CRX) 5-325 MG TABLET 1 TAB PO (20:41)
[2021-01-29] MEDS: ATORVASTATIN 10 MG TABLET PO (20:41)
[2021-01-30] VITALS (25 sets, daily range): BP systolic 105–140; BP diastolic 49–82; PULSE 89–118; RESP 16–32; TEMP 35.9–37.1; O2SAT 84–97
--- NOTE | 2021-01-30 | ECHO_ITS ---
Patient Info Name: Ivan Luna Age: 75 years : 1945 Gender: Male Ht: 67 in Wt: 180 lbs BSA: 1.98 m2 HR: 104 bpm BP: 105 / 82 mmHg Exam Date: 01/30/2021 12:21 PM Exam Location: [facility] Patient Status: Inpatient Admit Date: 01/29/2021 Staff Ordering Physician: Unique Hastings PA-C Speck Dyer: Torin Jacob RDCS, RT Attending Provider: Unique Hastings PA-C Referring Physician: Venkata LUKE; Exam Type: CA echo doppler color flow Study Info Indications I26.99 - Other pulmonary embolism without acute cor pulmonale Complete two-dimensional, color flow and Doppler transthoracic echocardiogram is performed. Summary 1. Complete two-dimensional, color flow and Doppler transthoracic echocardiogram is performed. 2. Left ventricular chamber dimension is normal. 3. Left ventricular systolic function is normal, estimated at 55-60%. 4. The left ventricular diastolic function is grade I diastolic dysfunction. 5. E/e' 5 is not elevated. Left Ventricle E/e' 5 is not elevated. Left ventricular chamber dimension is normal. Left ventricular systolic function is normal, estimated at 55-60%. The left ventricular diastolic function is grade I diastolic dysfunction. Right Ventricle Right ventricular systolic function is normal and with normal TAPSE 2.1 cm. Right ventricular chamber dimension is normal. Left Atria Left atrial chamber dimension is normal. Right Atria Right atrial chamber dimension is normal. Aortic Valve The aortic valve is trileaflet. There is no aortic valve stenosis. There is no aortic valve regurgitation. Pulmonic Valve There is no pulmonic regurgitation. Mitral Valve There is no mitral valve stenosis. There is no mitral valve regurgitation. Tricuspid Valve There is no tricuspid valve regurgitation. Pericardium/Pleural There is no pericardial effusion. Inferior Vena Cava Normal inferior vena cava with >50% collapse upon inspiration consistent with normal right atrial pressure, 5 mmHg. Aorta The aortic root size at the sinus of Valsalva is normal. Left Ventricular Outflow Tract Name Value Normal LVOT 2D LVOT Diameter 2.2 cm LVOT Doppler LVOT Peak Gradient 5 mmHg LVOT Mean Gradient 2 mmHg LVOT VTI 16 cm LVOT VTI/AV VTI Ratio 0.9 LVOT Stroke Volume 60 ml LVOT CO 5.7 l/min LVOT CI 2.9 l/min/m2 Mitral Valve Name Value Normal MV Doppler MV Decel [place] 335 cm/s2 MV PHT 47 ms MV Area (PHT) 4.7 cm2 4.0-5.0 MV Diastolic Function
[2021-01-30] MEDS: ALBUTEROL SULFATE NEB 2.5 MG/0.5 ML INH INHALATION ×5 (00:37→21:14)
[2021-01-30] MEDS: IPRATROPIUM BR 0.02% INH SOLN 0.5 MG/2.5 ML VIAL INHALATION ×5 (00:37→21:14)
[2021-01-30 01:36] LABS: Vancomycin Trough 7.3 ug/mL (10.0-20.0)
[2021-01-30] MEDS: HEPARIN SOD/D5W 100 UNITS/ML 25,000 UNITS/250 ML BAG 20 UNITS IV CONT ×2 (02:57→15:08)
[2021-01-30 05:34] LABS: Basophils Absolute Auto 0.1 K/mm3 (0.0-0.1); Basophils Percent Auto 0.5 % (0.2-1.2); Eosinophils Absolute Auto 0.2 K/mm3 (0-0.3); Eosinophils Percent Auto 1.1 % (0-4.4); Hematocrit 35.2 % (42.0-52.0); Immature Granulocyte Percent A 5.3 % (0-0.5); Lymphocytes Absolute Auto 1.85 K/mm3 (0.9-3.2); Lymphocytes Percent Auto 10.8 % (18.3-44.2); Mean Corpuscular HGB Conc 31.3 g/dl (32-36); Mean Corpuscular Hemoglobin 30.9 pg (26-34); Mean Corpuscular Volume 98.9 fl (80-100); Mean Platelet Volume 9.7 fl (7.4-10.4); Monocytes Absolute Auto 2.6 K/mm3 (0.1-0.6); Monocytes Percent Auto 14.9 % (2.6-8.5); Neutrophils Absolute Auto 11.5 K/mm3 (1.3-6.7); Neutrophils Percent Auto 67.4 % (45.5-73.1); Platelet Count Result 397 k/mm3 (150-375); Red Blood Count 3.56 M/mm3 (4.6-6.20); Red Cell Distribution Width 14.2 % (11.5-14.5); White Blood Count 17.1 K/mm3 (4.5-10.0)
[2021-01-30 05:46] LABS: Partial Thromboplastin Time 77.9 SECONDS (22.3-36.8)
[2021-01-30 08:18] LABS: Blood Urea Nitrogen 17 mg/dL (9-20); Calcium 8.4 mg/dL (8.4-10.2); Carbon Dioxide > 40 mmol/L (22-30); Chloride 92 mmol/L (98-107); Estimated CRCL calculation 84 ml/min; Estimated Glomerular Filt Rate > 60; Glucose 123 mg/dL (65-110); Potassium 3.6 mmol/L (3.4-5.0); Sodium 137 mmol/L (137-145)
[2021-01-30 08:30] LABS: CRP 37.4 mg/dL (<1.0)
[2021-01-30] MEDS: hydroCHLOROthiazide 12.5 MG CAPSULE PO (09:38)
[2021-01-30] MEDS: lisinopriL 20 MG TABLET PO (09:39)
[2021-01-30] MEDS: FUROSEMIDE INJ 40 MG/4 ML VIAL IV PUSH (10:09)
--- NOTE | 2021-01-30 14:18 | PM.IMPN ---
Progress Note: A&P Assessment and Plan (1) Acute respiratory failure with hypoxia: Code(s): J96.01 - Acute respiratory failure with hypoxia Status: Acute Assessment and Plan: Acute hypoxic respiratory failure, likely multifactorial in a patient with known COPD and congestive heart failure at baseline currently admitted for acute pulmonary embolism. Symptomatic improvement with lasix, with a good diuretic response. We will monitor renal function while on daily doses of lasix. Echocardiogram on 01/30 with normal EF 55%and no evidence of RV strain. (2) Sepsis: Code(s): A41.9 - Sepsis, unspecified organism Status: Acute Assessment and Plan: Patient meets sepsis criteria on admission with fever, tachycardia, and leukocytosis. Leucocytosis could be reactive in the setting of and aute embolci event. We will monitor cultures and de-escalate as indicated. Continue on broad-spectrum antibiotics at this time until cultures return. Continue close clinical monitoring. (3) Community acquired pneumonia: Code(s): J18.9 - Pneumonia, unspecified organism Status: Acute Assessment and Plan: Patient was recently started on Levaquin about 6 days ago for presumed pneumonia . On admission, he was started on azithromycin and ceftriaxone for presumed community-acquired pneumonia. His swab came back negative for COVID-19. Continue monitoring respiratory status. (4) Pulmonary embolism: Code(s): I26.99 - Other pulmonary embolism without acute cor pulmonale Status: Acute Assessment and Plan: Continue heparin drip . No signs of RV strain. Continue monitoring. (5) Benign prostatic hyperplasia: Code(s): N40.0 - Benign prostatic hyperplasia without lower urinary tract symptoms Status: Acute Assessment and Plan: No acute issues. Continue tamsulosin. (6) Hypertension: Code(s): I10 - Essential (primary) hypertension Status: Chronic Assessment and Plan: Blood pressures were reviewed and they are stable. Continue lisinopril 20 mg po daily. (7) Hyperlipidemia: Code(s): E78.5 - Hyperlipidemia, unspecified Status: Acute Assessment and Plan: Continue statin. (8) Chronic obstructive pulmonary disease: Code(s): J44.9 - Chronic obstructive pulmonary disease, unspecified Status: Acute Assessment and Plan: Continue aggresive nebulization. Encourage OOBC. We will do a trial of twice daily flutter valve to help mobilize secretions. (9) Tobacco dependence: Code(s): F17.200 - Nicotine dependence, unspecified, uncomplicated Status: Acute Assessment and Plan: Smoking cessation is encouraged and was discussed with the patient. Nicotine patch as needed. Subjective Date/time seen: 01/30/21 14:18Thicristina is a pleasant 75-year-old gentleman with chronic smoking, COPD, hypertension, hyperlipidemia, and benign prostatic hyperplasia who is admitted on 01/27 for evaluation shortness of breath, chest pain, and fever. He carries a diagnosis of congestive heart failure and he was given Lasix with good urine output during previous admission in December. In ED, CTA of the chest showed acute pulmonary emboli of the left lung with left upper lobe opacities which may reflect pulmonary infarction for which he has been started on a heparin drip. His white blood cell count was quite elevated at 20.8 with a CRP of 33.9 and he has also been started on empirical antibiotics for possible bacterial pneumonia. He received t
[2021-01-30 18:49] LABS: Pneumococcal Antigen Urine Not Detected (Not Detected)
[2021-01-30] MEDS: ATORVASTATIN 10 MG TABLET PO (20:34)
[2021-01-30] MEDS: HYDROcodone/acetaminophen (*CRX) 5-325 MG TABLET 1 TAB PO (20:34)
[2021-01-31] VITALS (22 sets, daily range): BP systolic 105–141; BP diastolic 53–64; PULSE 83–104; RESP 14–28; TEMP 36.1–36.9; O2SAT 90–98
[2021-01-31] MEDS: HEPARIN SOD/D5W 100 UNITS/ML 25,000 UNITS/250 ML BAG 20 UNITS IV CONT ×2 (03:11→15:21)
[2021-01-31] MEDS: IPRATROPIUM BR 0.02% INH SOLN 0.5 MG/2.5 ML VIAL INHALATION ×4 (04:19→20:55)
[2021-01-31] MEDS: ALBUTEROL SULFATE NEB 2.5 MG/0.5 ML INH INHALATION ×4 (04:19→20:55)
[2021-01-31 05:39] LABS: Basophils Absolute Auto 0.2 K/mm3 (0.0-0.1); Basophils Percent Auto 1.1 % (0.2-1.2); Eosinophils Absolute Auto 0.5 K/mm3 (0-0.3); Eosinophils Percent Auto 3.5 % (0-4.4); Hematocrit 34.9 % (42.0-52.0); Hemoglobin 10.8 g/dL (14.0-18.0); Immature Granulocyte Absolute 1.04 K/mm3 (0.00-0.031); Immature Granulocyte Percent A 6.8 % (0-0.5); Lymphocytes Absolute Auto 1.82 K/mm3 (0.9-3.2); Lymphocytes Percent Auto 11.9 % (18.3-44.2); Mean Corpuscular HGB Conc 30.9 g/dl (32-36); Mean Corpuscular Hemoglobin 30.1 pg (26-34); Mean Corpuscular Volume 97.2 fl (80-100); Mean Platelet Volume 10.1 fl (7.4-10.4); Monocytes Absolute Auto 2.5 K/mm3 (0.1-0.6); Monocytes Percent Auto 16.1 % (2.6-8.5); Neutrophils Absolute Auto 9.3 K/mm3 (1.3-6.7); Neutrophils Percent Auto 60.6 % (45.5-73.1); Platelet Count Result 419 k/mm3 (150-375); Red Blood Count 3.59 M/mm3 (4.6-6.20); Red Cell Distribution Width 13.9 % (11.5-14.5); White Blood Count 15.3 K/mm3 (4.5-10.0)
[2021-01-31 05:56] LABS: Estimated CRCL calculation 84 ml/min; Estimated Glomerular Filt Rate > 60
[2021-01-31 06:37] LABS: Anisocytosis 1+ (NORMAL); Platelet Estimate Adequate (Adequate)
--- NOTE | 2021-01-31 08:07 | PM.IMPN ---
Progress Note: A&P Assessment and Plan (1) Acute respiratory failure with hypoxia: Code(s): J96.01 - Acute respiratory failure with hypoxia Status: Acute Assessment and Plan: Acute hypoxic respiratory failure, likely multifactorial in a patient with known COPD and congestive heart failure currently on heparin drip for acute pulmonary embolism. There has been symptomatic improvement with lasix, with a good diuretic response. Today we will focus on aggressive nebulization with scheduled duoneb every 4 hrs, encourage mobilization of secretions with a flutter valve. Echocardiogram on 01/30 with normal EF 55%and no evidence of RV strain. We will restrict his free water to 1.5 liters a day. (2) Sepsis: Code(s): A41.9 - Sepsis, unspecified organism Status: Acute Assessment and Plan: Patient met sepsis criteria on admission with fever, tachycardia, and leukocytosis. Leucocytosis could be reactive in the setting of and acute embolic event. Blood cultures have remained negative so far. Given recently treated community acquired pneumonia and we will continue his antibiotics. Continue close clinical monitoring. (3) Community acquired pneumonia: Code(s): J18.9 - Pneumonia, unspecified organism Status: Acute Assessment and Plan: Patient was recently started on Levaquin about 6 days ago for presumed pneumonia . On admission, he was started on azithromycin and ceftriaxone for presumed community-acquired pneumonia. His swab came back negative for COVID-19. Blood cultures have remained negative. Continue monitoring respiratory status. (4) Pulmonary embolism: Code(s): I26.99 - Other pulmonary embolism without acute cor pulmonale Status: Acute Assessment and Plan: Currently patient with acute respiratory failure requiring oxygen at 3 liters. Adequate diuretic respoonse to IV lasix with initial improvement of respiratory status. Patient has known congestive heart failure. Hypoxemic respiratory failure also likely related to COPD/emphysema. Continue heparin drip . No signs of RV strain were detected on echocardiogram. Continue monitoring. (5) Benign prostatic hyperplasia: Code(s): N40.0 - Benign prostatic hyperplasia without lower urinary tract symptoms Status: Acute Assessment and Plan: No acute obstructive symptoms. Continue tamsulosin. (6) Hypertension: Code(s): I10 - Essential (primary) hypertension Status: Chronic Assessment and Plan: Blood pressures were reviewed and they are stable. Continue lisinopril 20 mg po daily. currently on IV lasix 40 mg daily (7) Hyperlipidemia: Code(s): E78.5 - Hyperlipidemia, unspecified Status: Acute Assessment and Plan: Continue statin. (8) Chronic obstructive pulmonary disease: Code(s): J44.9 - Chronic obstructive pulmonary disease, unspecified Status: Acute Assessment and Plan: Continue aggresive nebulization. Encourage OOBC. We will do a trial of twice daily flutter valve to help mobilize secretions. (9) Tobacco dependence: Code(s): F17.200 - Nicotine dependence, unspecified, uncomplicated Status: Acute Assessment and Plan: Smoking cessation is encouraged and was discussed with the patient. Nicotine patch as needed. Subjective Date/time seen: 01/31/21 07:30 This is a pleasant 75-year-old gentleman with chronic smoking, COPD, hypertension, hyperlipidemia, and benign prostatic hyperplasia who is admitted on 01/27 for evaluat
[2021-01-31] MEDS: lisinopriL 20 MG TABLET PO (09:12)
[2021-01-31] MEDS: FUROSEMIDE INJ 40 MG/4 ML VIAL IV PUSH (09:12)
[2021-01-31] MEDS: hydroCHLOROthiazide 12.5 MG CAPSULE PO (09:12)
[2021-01-31 13:18] LABS: Vancomycin Trough 14.7 ug/mL (10.0-20.0)
[2021-01-31] MEDS: ATORVASTATIN 10 MG TABLET PO (20:46)
[2021-02-01] VITALS (26 sets, daily range): BP systolic 93–116; BP diastolic 53–88; PULSE 75–109; RESP 16–20; TEMP 36.4–37; O2SAT 91–95
[2021-02-01] MEDS: ALBUTEROL SULFATE NEB 2.5 MG/0.5 ML INH INHALATION ×4 (02:30→20:49)
[2021-02-01] MEDS: IPRATROPIUM BR 0.02% INH SOLN 0.5 MG/2.5 ML VIAL INHALATION ×4 (02:30→20:49)
[2021-02-01] MEDS: HEPARIN SOD/D5W 100 UNITS/ML 25,000 UNITS/250 ML BAG 20 UNITS IV CONT (03:54)
[2021-02-01 07:03] LABS: Hematocrit 33.8 % (42.0-52.0); Hemoglobin 10.4 g/dL (14.0-18.0); Mean Corpuscular HGB Conc 30.8 g/dl (32-36); Mean Corpuscular Hemoglobin 29.5 pg (26-34); Mean Platelet Volume 10.5 fl (7.4-10.4); Platelet Count Result 482 k/mm3 (150-375); Red Blood Count 3.52 M/mm3 (4.6-6.20); Red Cell Distribution Width 13.9 % (11.5-14.5); White Blood Count 17.1 K/mm3 (4.5-10.0)
[2021-02-01 07:16] LABS: Estimated CRCL calculation 73 ml/min; Estimated Glomerular Filt Rate > 60
[2021-02-01 07:45] LABS: Legionella pneumophila Ag Ur Not Detected (Not Detected)
[2021-02-01 07:48] LABS: Anisocytosis 2+ (NORMAL); Atypical Lymphocytes Present; Band Neutrophils Percent 3 % (0-6); Eosinophils Absolute Manual 0.51 K/mm3 (0.02-0.5); Eosinophils Percent Manual 3 % (0-4); Large Platelets Present; Lymphocytes Absolute Manual 2.56 K/mm3 (1.1-4.5); Metamyelocytes Percent 1 %; Monocytes Absolute Manual 2.39 K/mm3 (0.1-0.90); Monocytes Percent Manual 14 % (3-9); Myelocytes Percent 1 %; Neutrophils Absolute Manual 11.28 K/mm3 (1.3-6.7); Neutrophils Percent Manual 63 % (46-73); Platelet Clumps Present; Platelet Estimate Increased (Adequate); Total Cells Counted 100
[2021-02-01] MEDS: hydroCHLOROthiazide 12.5 MG CAPSULE PO (08:11)
[2021-02-01] MEDS: FUROSEMIDE INJ 40 MG/4 ML VIAL IV PUSH (08:11)
[2021-02-01] MEDS: lisinopriL 20 MG TABLET PO (08:11)
--- NOTE | 2021-02-01 09:30 | PM.CNPUL ---
Assessment and Plan Assessment and plan (1) Chronic obstructive pulmonary disease: Code(s): J44.9 - Chronic obstructive pulmonary disease, unspecified Status: Acute Assessment and Plan: Patient is a 54 pack year history of tobacco with moderate to severe upper lobe predominant central lobular emphysema on his CT of the chest on 01/27/2021. I have no PFTs. At baseline patient has worsening dyspnea on exertion over the last 2 years and over the last month his only been able to walk across the room. He has no hospitalizations or recent exacerbations for COPD. he had a blood gas during this hospitalization with an acute pulmonary embolism, pneumonia and COPD exacerbation of pH 7.39/58/62. currently the patient has no wheezing is being treated for COPD exacerbation with possible community-acquired pneumonia with albuterol and ipratropium nebulizers as well as broad-spectrum antibiotics with vancomycin, ceftriaxone and azithromycin. I will repeat a blood gas on 2 L nasal cannula today to assess his hypercarbia. At this time I do not feel a need to treat him with systemic steroids. Today is day 4 of azithromycin and would complete 5 days. When he is ready for discharge would change him to levofloxacin 750 mg p.o. q.day to finish a total of 10 days of antibiotics. I will perform an overnight oximetry on 2 L nasal cannula to determine his oxygen needs at night. He will need a home O2 assessment prior to discharge and I expect that he will require oxygen. Beta agonist and muscarinic antagonist that insurance will cover (Anoro Ellipta 62.5/25 at 1 puff Q day, stiolto respimat 2.5/2.5 at 1 puff BID, combivent respimat at 2 puffs Q 4 HR or separate albuterol and atrovent inhalers at 2 puffs Q 4 HR) I will discharge him on a Beta agonist and muscarinic antagonist that insurance will cover (Anoro Ellipta 62.5/25 at 1 puff Q day, stiolto respimat 2.5/2.5 at 1 puff BID, combivent respimat at 2 puffs Q 4 HR or separate albuterol and atrovent inhalers at 2 puffs Q 4 HR) He will need outpatient pulmonary function tests. Will follow with you. (2) Pulmonary embolism: Code(s): I26.99 - Other pulmonary embolism without acute cor pulmonale Status: Acute Assessment and Plan: Patient has left lung pulmonary emboli with negative Dopplers and no evidence of right heart strain on his echocardiogram. Patient has been on IV heparin anticoagulation and will convert to a direct acting oral anticoagulant that his insurance will cover. I spoke with the hospitalist Dr. Eisenberg regarding this. History of Present Illness History of Present Illness Consult date: 02/01/21 Reason for consult: COPD and pulmonary embolism Chief complaint: pulmonary embolism,community-aquired pneumonia,sep Narrative: 02/01/2021. This is a new Pulmonary consult for COPD, pulmonary embolism. 75-year-old man with a history of undiagnosed COPD, proriasis, hypertension presented to the emergency room on 01/27 with 2 weeks acute worsening shortness of breath. Patient had a CT angiogram of the chest that showed acute pulmonary emboli in the left upper lobe, lingula and left lower lobe. There was moderate emphysema noted and left upper lobe opacities consistent with pulmonary infarct and or pneumonia. Patient had a white blood cell count of 20.8, he was hemodynamically stable with troponins negative times for and a BNP of 733, he required 2 L nasal cannula. patient was started on IV heparin drip for his PE. patient was treated with ceftriaxone, azithromycin started on 01/28 and vancomycin started on 01/30 for possible pneumonia. the patient was COVID RT PCR negative on 01/27/2021. urine Legionella antigen and urine pneumococcal antigen were not staff nurse midwife on 01/27/2021. Blood cultures from 01/27/2021 remain negative. Sputum Gram stain and culture on 01/27/2021 demonstrated few epithelial cells, moderate white blood cells mixed bacterial dang
--- NOTE | 2021-02-01 10:30 | PM.IMPN ---
Progress Note: A&P Assessment and Plan (1) Acute respiratory failure with hypoxia: Code(s): J96.01 - Acute respiratory failure with hypoxia Status: Acute Assessment and Plan: Acute hypoxic respiratory failure, likely multifactorial in a patient with known COPD and congestive heart failure currently on heparin drip for acute pulmonary embolism. There has been symptomatic improvement with lasix, with a good diuretic response. Today we will focus on aggressive nebulization with scheduled duoneb every 4 hrs, encourage mobilization of secretions with a flutter valve. Echocardiogram on 01/30 with normal EF 55%and no evidence of RV strain. We will restrict his free water to 1.5 liters a day. Assess home oxygen requirements in anticipation of possible discharge on 02/02/2021. (2) Sepsis: Code(s): A41.9 - Sepsis, unspecified organism Status: Acute Assessment and Plan: Patient met sepsis criteria on admission with fever, tachycardia, and leukocytosis. Leucocytosis could have been reactive in the setting of and acute embolic event. Blood cultures have remained negative. PAtient was recently treated community acquired pneumonia with levaquin; we will continue his antibiotics ceftriaxone, azithromycine.. Continue close clinical monitoring. (3) Community acquired pneumonia: Code(s): J18.9 - Pneumonia, unspecified organism Status: Acute Assessment and Plan: Patient was recently started on Levaquin about 6 days ago for presumed pneumonia . On admission, he was started on azithromycin and ceftriaxone for presumed community-acquired pneumonia. His swab came back negative for COVID-19. Blood cultures have remained negative. Continue monitoring respiratory status. (4) Pulmonary embolism: Code(s): I26.99 - Other pulmonary embolism without acute cor pulmonale Status: Acute Assessment and Plan: Currently patient with acute respiratory failure requiring oxygen at 3 liters. Adequate diuretic respoonse to IV lasix with initial improvement of respiratory status. Patient has known congestive heart failure. Hypoxemic respiratory failure also likely related to COPD/emphysema. Continue heparin drip . No signs of RV strain were detected on echocardiogram. Continue monitoring. (5) Benign prostatic hyperplasia: Code(s): N40.0 - Benign prostatic hyperplasia without lower urinary tract symptoms Status: Acute Assessment and Plan: No acute obstructive symptoms. Continue tamsulosin. (6) Hypertension: Code(s): I10 - Essential (primary) hypertension Status: Chronic Assessment and Plan: Blood pressures were reviewed and they are stable. Continue lisinopril 20 mg po daily. currently on IV lasix 40 mg daily (7) Hyperlipidemia: Code(s): E78.5 - Hyperlipidemia, unspecified Status: Acute Assessment and Plan: Continue statin. (8) Chronic obstructive pulmonary disease: Code(s): J44.9 - Chronic obstructive pulmonary disease, unspecified Status: Acute Assessment and Plan: Continue aggresive nebulization. Encourage OOBC. We will do a trial of twice daily flutter valve to help mobilize secretions. (9) Tobacco dependence: Code(s): F17.200 - Nicotine dependence, unspecified, uncomplicated Status: Acute Assessment and Plan: Smoking cessation is encouraged and was discussed with the patient. Nicotine patch as needed. Subjective Date/time seen: 02/01/21 10:00 Interval history: The patient chinyere
[2021-02-01 12:58] LABS: Alveolar/Arterial O2 Gradient 86.3 mmHg; Base Excess ABG 13.8 mEq/l (+/-2.0); Fractional Inspired Oxygen 28 %; HCO3 ABG 38.6 mEq/l (22.0-26.0); Oxygen Content ABG 14.9 %vol (16.0-22.0); Oxyhemoglobin 89.1 % THb (90.0-100.0); PCO2 ABG 49.3 mmHg (35.0-45.0); PO2 ABG 55.2 mmHg (80.0-100.0); PO2 FiO2 Ratio Arterial Blood 1.97 %; Total Hemoglobin 11.9 g/dL (12.0-18.0)
[2021-02-01 13:02] LABS: Device NASAL CANNULA; Site Drawn RIGHT BRACHIAL; pH ABG 7.512 (7.350-7.450)
--- NOTE | 2021-02-01 15:17 | PC.NURSE ---
On 02/01/21, the student, [Chula Leija ], provided care and completed [facility] documentation on this patient. I have reviewed the student's documentation and agree with the findings.
[2021-02-01] MEDS: APIXABAN 5 MG TABLET 10 MG PO (17:31)
[2021-02-01] MEDS: ATORVASTATIN 10 MG TABLET PO (21:51)
[2021-02-02] VITALS (19 sets, daily range): BP systolic 115–116; BP diastolic 43–53; PULSE 87–108; RESP 20; TEMP 36.5–36.6; O2SAT 83–95
[2021-02-02 05:05] LABS: Hematocrit 34.7 % (42.0-52.0); Hemoglobin 10.9 g/dL (14.0-18.0); Mean Corpuscular HGB Conc 31.4 g/dl (32-36); Mean Corpuscular Hemoglobin 29.6 pg (26-34); Mean Corpuscular Volume 94.3 fl (80-100); Mean Platelet Volume 9.9 fl (7.4-10.4); Platelet Count Result 505 k/mm3 (150-375); Red Blood Count 3.68 M/mm3 (4.6-6.20); Red Cell Distribution Width 13.9 % (11.5-14.5); White Blood Count 18.4 K/mm3 (4.5-10.0)
[2021-02-02 05:19] LABS: Estimated CRCL calculation 65 ml/min; Estimated Glomerular Filt Rate > 60
[2021-02-02 05:47] LABS: Band Neutrophils Percent 6 % (0-6); Lymphocytes Absolute Manual 2.02 K/mm3 (1.1-4.5); Monocytes Absolute Manual 1.65 K/mm3 (0.1-0.90); Monocytes Percent Manual 9 % (3-9); Neutrophils Absolute Manual 14.72 K/mm3 (1.3-6.7); Neutrophils Percent Manual 74 % (46-73); Total Cells Counted 100
[2021-02-02 05:48] LABS: Platelet Estimate Adequate (Adequate)
--- NOTE | 2021-02-02 07:45 | PM.PNPUL ---
Progress Note: A&P Assessment and Plan (1) Chronic obstructive pulmonary disease: Code(s): J44.9 - Chronic obstructive pulmonary disease, unspecified Status: Acute Assessment and Plan: 02/01 Patient is a 54 pack year history of tobacco with moderate to severe upper lobe predominant central lobular emphysema on his CT of the chest on 01/27/2021. I have no PFTs. At baseline patient has worsening dyspnea on exertion over the last 2 years and over the last month his only been able to walk across the room. He has no hospitalizations or recent exacerbations for COPD. he had a blood gas during this hospitalization with an acute pulmonary embolism, pneumonia and COPD exacerbation of pH 7.39/58/62. currently the patient has no wheezing is being treated for COPD exacerbation with possible community-acquired pneumonia with albuterol and ipratropium nebulizers as well as broad-spectrum antibiotics with vancomycin, ceftriaxone and azithromycin. I will repeat a blood gas on 2 L nasal cannula today to assess his hypercarbia. At this time I do not feel a need to treat him with systemic steroids. Today is day 4 of azithromycin and would complete 5 days. When he is ready for discharge would change him to levofloxacin 750 mg p.o. q.day to finish a total of 10 days of antibiotics. I will perform an overnight oximetry on 2 L nasal cannula to determine his oxygen needs at night. He will need a home O2 assessment prior to discharge and I expect that he will require oxygen. I will discharge him on a Beta agonist and muscarinic antagonist that insurance will cover (Anoro Ellipta 62.5/25 at 1 puff Q day, stiolto respimat 2.5/2.5 at 1 puff BID, combivent respimat at 2 puffs Q 4 HR or separate albuterol and atrovent inhalers at 2 puffs Q 4 HR) He will need outpatient pulmonary function tests. 02/02 Patient states that his breathing is much improved overall. He is breathing better than he has in the last few months. He still does have shortness of breath. He has been using the bedside commode. Patient had a blood gas yesterday in the afternoon on 2 L nasal cannula the pH of 7.51/49/55. Patient had an overnight oximetry on 2 L nasal cannula with an average saturation 91%. Lowest saturation 81%, time with saturation less than or equal to 88% was 35 minutes or 11% of the monitored time. White blood cell count is 18.4 the is afebrile and has no phlegm production. He still continues with constant dull substernal chest pain. Patient has no wheezes. Patient feels he is improved and ready for discharge. Patient is suitable for discharge from Pulmonary perspective on these pulmonary medicines: Levaquin 750 mg PO through 02/06 Beta agonist and muscarinic antagonist that insurance will cover (Anoro Ellipta 62.5/25 at 1 puff Q day, stiolto respimat 2.5/2.5 at 1 puff BID, combivent respimat at 2 puffs Q 4 HR or separate albuterol and atrovent inhalers at 2 puffs Q 4 HR). Rescue albuterol 2 puffs q.4 hours p.r.n. shortness of breath or wheezing Oxygen per home O2 assessment 4 L NC when he sleeps. eliquis 10 mg PO BID for total 7 days then 5 mg PO Q day Follow-up in Pulmonary Clinic in 3-4 weeks. I gave him our business card and will inform our geophysical laboratory chief. Will need a repeat overnight oximetry on 4 L nasal cannula and a split night sleep study given the multiple desaturation events on his overnight oximetry. Discussed with Dr. Eisenberg. if patient remains in the hospital in patient pulmonary services will resume on 02/05. Call with questions. (2) Pulmonary embolism: Code(s): I26.99 - Other pulmonary embolism without acute cor pulmonale Status: Acute Assessment and Plan: Patient has left lung pulmonary emboli with negative Dopplers and no evidence of right heart strain on his echocardiogram. Patient has been on IV heparin anticoagulation and will convert to a direct acting oral anticoagulant that his insurance will cover. I spo
[2021-02-02] MEDS: IPRATROPIUM BR 0.02% INH SOLN 0.5 MG/2.5 ML VIAL INHALATION ×2 (08:39→13:14)
[2021-02-02] MEDS: ALBUTEROL SULFATE NEB 2.5 MG/0.5 ML INH INHALATION ×2 (08:39→13:14)
[2021-02-02] MEDS: APIXABAN 5 MG TABLET 10 MG PO (08:44)
[2021-02-02] MEDS: lisinopriL 20 MG TABLET PO (08:45)
[2021-02-02] MEDS: hydroCHLOROthiazide 12.5 MG CAPSULE PO (08:45)
[2021-02-02] MEDS: FUROSEMIDE 40 MG TABLET PO (08:55)
--- NOTE | 2021-02-02 10:35 | PCDIET ---
Nutrition Follow-Up Complete: Nutrition Diagnosis: Inadequate oral intake related to poor appetite as evidenced by patient statements, intakes of 0-50% since admission. Nutrition Goal: Patient to consume 50% of meals/supplements or greater and maintain weight. Goal in progress. Intakes remain poor, but patient reports taking Ensure Enlive TID. Discussed that Ensure is not entirely meeting estimated needs and encouraged patient to attempt intake of meals. Patient voiced understanding. Agree with heart healthy diet and 1500mL fluid restriction. Last recorded weight is 80.8 kg which is down from last review. -I/O. Bowel Motility: Last documented BM on 02/01/21 x 1. Labs Reviewed: WBC (18.4), RBC (3.68), Hgb (10.9), Hct (34.7) Meds Noted: Albuterol, Lipitor, Zithromax, Rocephin, Lasix, Hydrochlorothiazide, Atrovent, Lisinopril, Vancomycin, Lasix Additional Notes: No documented skin breakdown. Will continue to monitor with same goal. Nutrition Monitoring and Evaluation: Follow up in 5 days.
[2021-02-02] MEDS: HYDROcodone/acetaminophen (*CRX) 5-325 MG TABLET 1 TAB PO (11:28)
--- NOTE | 2021-02-02 13:20 | PM.DS ---
DS: Admitting Diagnosis Discharge Date 02/02/2021 Admitting Diagnosis Acute pulmonary embolism DS: Discharge Diagnosis Discharge Diagnosis (1) Acute respiratory failure with hypoxia: Code(s): J96.01 - Acute respiratory failure with hypoxia Status: Acute Assessment and Plan: Acute hypoxic respiratory failure, likely multifactorial in a patient with known COPD and congestive heart failure currently on heparin drip for acute pulmonary embolism. There has been symptomatic improvement with lasix, with a good diuretic response. Today we will focus on aggressive nebulization with scheduled duoneb every 4 hrs, encourage mobilization of secretions with a flutter valve. Echocardiogram on 01/30 with normal EF 55%and no evidence of RV strain. We will restrict his free water to 1.5 liters a day. Assess home oxygen requirements in anticipation of possible discharge on 02/02/2021. (2) Pulmonary embolism: Code(s): I26.99 - Other pulmonary embolism without acute cor pulmonale Status: Acute (3) Chronic obstructive pulmonary disease: Code(s): J44.9 - Chronic obstructive pulmonary disease, unspecified Status: Acute Assessment and Plan: Currently patient with acute respiratory failure requiring oxygen at 3 liters. Adequate diuretic respoonse to IV lasix with initial improvement of respiratory status. Patient has known congestive heart failure. Hypoxemic respiratory failure also likely related to COPD/emphysema. Continue heparin drip . No signs of RV strain were detected on echocardiogram. Continue monitoring. (4) Community acquired pneumonia: Code(s): J18.9 - Pneumonia, unspecified organism Status: Acute Assessment and Plan: Patient was recently started on Levaquin about 6 days ago for presumed pneumonia . On admission, he was started on azithromycin and ceftriaxone for presumed community-acquired pneumonia. His swab came back negative for COVID-19. Blood cultures have remained negative. Continue monitoring respiratory status. (5) Sepsis: Code(s): A41.9 - Sepsis, unspecified organism Status: Acute Assessment and Plan: Patient met sepsis criteria on admission with fever, tachycardia, and leukocytosis. Leucocytosis could have been reactive in the setting of and acute embolic event. Blood cultures have remained negative. PAtient was recently treated community acquired pneumonia with levaquin; we will continue his antibiotics ceftriaxone, azithromycin.. Continue close clinical monitoring. DS: Summary Hospital Course Reason for hospitalization: Shortness of breath Hospital Course: This is a 75-year-old male patient who has 54 pack-year history of smoking, COPD/emphysema, PE and pneumonia. The patient was admitted for acute pulmonary embolism. CHF exacerbation and COPD exacerbation were diagnosed on day 3 and he was appropriately treated with aggressive nebulization and diuresis. On 01/29/2021 patient experienced sudden onset shortness of breath. He was hemodynamically stable; exam revealed wheezing and bibasilar crackles. He was treated with diuresis and aggressive nebulization. He developed hypoxemia and required 2-3 liters oxygen. Pulmonary was consulted. The patient was being treated for COPD exacerbation with possible community-acquired pneumonia with albuterol and ipratropium nebulizers as well as broad-spectrum antibiotics with vancomycin, ceftriaxone and azithromycin. He was discharged on levofloxacin 750 mg p.o. q.day to finish a total of 10 days of antibiotics. BAsed on overnight oximetry, he was discharged on oxygen 3 liters with ambulation. He was discharged on Anoro Ellipta 62.5/25 at 1 puff Q day, and albuterol at 2 puffs Q 4 HR PRN) He was discharged on eliquis 10 mg PO ID for 7 days followed by 5 mg PO BID. For his CHF he was sent home on lasix 40 mg PO twice daily. Status at Discharge Functional status at discharge: independent ambulation Overall status at discharge:
--- NOTE | 2021-02-02 15:29 | HOMEO2EVAL ---
Evaluation was performed at [facility] Home Oxygen Evaluation RC: Home Oxygen (O2) Evaluation Start: 02/02/21 05:57 Freq: ONCE Status: Active Protocol: RPE Activity Type Activity Date Activity User E-Sign Co-Sign Detail Recorded Client Recorded Date Recorded By Document 02/02/21 14:15 MARILUZ [id number] 02/02/21 15:29 MARILUZ Document 02/02/21 14:16 MARILUZ [email or web address] 02/02/21 15:29 MARILUZ Document 02/02/21 14:17 [email or web address] [email or web address] 02/02/21 15:29 MARILUZ Document 02/02/21 14:18 [email or web address] [email or web address] 02/02/21 15:29 MARILUZ Document 02/02/21 14:19 [email or web address] [id number] 02/02/21 15:29 MARILUZ Document 02/02/21 14:30 MARILUZ [id number] 02/02/21 15:29 MARILUZ 02/02/21 02/02/21 02/02/21 14:15 14:16 14:17 Home O2 Evaluation Test Phase Resting Exercise Exercise Oxygen Delivery Room Air Room Air Nasal Cannula Oxygen Flow Rate (L/min) 1 Pulse Oximetry (90-100 %) 90 83 L 85 L Pulse Rate (60-100 beats/min) 100 Ambulation Distance (feet) Home Oxygen Evaluation Comments Treatment Charges O2 Evaluation - Inpatient 02/02/21 02/02/21 02/02/21 14:18 14:19 14:30 Home O2 Evaluation Test Phase Exercise Exercise Resting Oxygen Delivery Nasal Cannula Nasal Cannula Room Air Oxygen Flow Rate (L/min) 2 3 Pulse Oximetry (90-100 %) 86 L 91 90 Pulse Rate (60-100 beats/min) Ambulation Distance (feet) 150 Home Oxygen Evaluation Comments PT REQUIRES 3 L HOME O2 WITH ACTIVITY Treatment Charges
--- NOTE | 2021-02-02 16:15 | PCRCNOTE ---
Home oxygen evaluation completed. Patient requires 3 lpm with ambulation only. Arrangements made with [facility] ([phone]). Tank at bedside for discharge home.
== END 2021-02-02 16:20 | disposition home health service (06) | DRG 175 ==
LOC: ANHED 13:21 → ANHIMU 14:35
PROVIDERS: Internal Medicine; Internal Medicine Pulmonary Disease; Physician Assistant; Admitting Provider Internal Medicine; Emergency Provider Emergency Medicine; PCP Family Medicine; Visit Provider Internal Medicine
DX: I26.99 Other pulmonary embolism without acute cor pulmonale (principal); J18.9 Pneumonia, unspecified organism; J96.01 Acute respiratory failure with hypoxia; I11.0 Hypertensive heart disease with heart failure; J43.9 Emphysema, unspecified; Z20.822 Contact with and (suspected) exposure to COVID-19; I50.9 Heart failure, unspecified; E78.5 Hyperlipidemia, unspecified; N40.0 Benign prostatic hyperplasia without lower urinary tract symptoms; L40.9 Psoriasis, unspecified; F17.210 Nicotine dependence, cigarettes, uncomplicated; Z87.442 Personal history of urinary calculi; Z98.42 Cataract extraction status, left eye; Z98.41 Cataract extraction status, right eye
CPT/HCPCS: 36415; 36600; 71045; 71275; 80048; 80053; 80202; 82565; 82728; 82805; 83605; 83615; 83735; 83880; 84145; 84484; 85025; 85027; 85610; 85730; 86140; 87040; 87070; 87205; 87449; 87899; 93005; 93306; 93970; 94618; 94640; 94667; 94762; 96365; 96366; 96368; 96375; 97162; 97165; 97530; 97535; 99285; A9270; C9803; G0378; J0131; J0456; J0696; J1644; J1940; J3370; J7030; Q9967; U0003; U0005

== ENCOUNTER 2021-02-03 13:25 | Inpatient (IN) | payer MEDICARE, SELFPAY ==
[2021-02-03] VITALS (10 sets, daily range): BP systolic 80–115; BP diastolic 45–70; PULSE 87–110; RESP 20–40; TEMP 36.1–37.2; O2SAT 95–99; BMI 29.6
--- NOTE | ~2021-02-03 | XR_ITS ---
EXAMINATION: XR chest 1V portable EXAM DATE: 02/09/2021 09:27 INDICATION: Pneumonia, pleural effusion . TECHNIQUE: Portable AP frontal chest x-ray was obtained. Comparison is made to prior examination from 02/08, 02/07, 02/06, 02/03. FINDINGS: Rather extensive left-sided pneumonia has progressed compared to 02/03, but appears stable c ompared to more recent x-rays. Mild cardiomegaly. No pneumothorax. Small pleural effusions are likely . There are bony degenerative changes. Small amount right basilar opacity probably atelectasis but pn eumonia not excludable. IMPRESSION: 1. Extensive left-sided pneumonia unchanged. Reviewed, dictated and finalized at location A.
--- NOTE | ~2021-02-03 | XR_ITS ---
XR chest 1V portable DATE: 02/05/2021 09:13 INDICATION: Chest pain, shortness of breath TECHNIQUE: Portable upright AP chest on 02/05/2021 at 0906 hours COMPARISON: 02/03/2021 AP chest FINDINGS: There is diffuse infiltrate of the left lung and infiltrate in the right lower lung. Infilt rate is greatest in the left upper lobe, with possible developing cavitation. No pleural effusion or pulmonary vascular congestion or pneumothorax. Normal heart size. Diffuse osteopenia. IMPRESSION: Diffuse increased left pulmonary infiltrate and interval right lower lung infiltrate sinc e 02/03/2021, greatest in the left upper lobe Reviewed, dictated and finalized at location B. IMPRESSION: Diffuse increased left pulmonary infiltrate and interval right lowe r lung infiltrate since 02/03/2021, greatest in the left upper lobe
--- NOTE | ~2021-02-03 | XR_ITS ---
XR chest 2V 02/11/2021 08:03 Indication: Pneumonia. Left pleural effusion. Procedure: AP and lateral views of the chest Comparison: Comparison to multiple prior studies sequentially, with oldest reviewed study dated 02/06. Findings: No significant change to extensive left-sided airspace disease with cavitation in the left upper lung zone. Small left effusion. Stable cardiomediastinal silhouette. Right basilar atelectasis. Impression: 1: No significant change to left-sided pneumonia with possible developing cavitation at the left uppe r lung zone. 2: Small left pleural effusion. Reviewed, dictated and finalized at location A. Impression: 1: No significant change to left-sided pneumonia with possible developing cavit ation at the left upper lung zone. 2: Small left pleural effusion.
--- NOTE | ~2021-02-03 | XR_ITS ---
EXAMINATION: XR chest 1V portable DATE: 02/08/2021 09:37 INDICATION: Increased wheezing and shortness of breath TECHNIQUE: frontal view of the chest was obtained. COMPARISON: Chest radiograph dated 02/07/2021 FINDINGS: No significant interval change in diffuse opacities throughout the left lung and small left pleural e ffusion with blunting at the left costophrenic angle. Also unchanged are more subtle opacities at the right lung base and in the right upper lobe abutting the minor fissure. No pneumothorax or right-kodi ed pleural effusion. The cardiomediastinal silhouette is normal. IMPRESSION: 1. No significant change in opacities throughout the left lung consistent with small pleural effusion and pneumonia superimposed over emphysema. 2. Unchanged subtle opacities in the right lower lung zones which could represent atelectasis or olivia tional pneumonia. Reviewed, dictated and finalized at location A. IMPRESSION: 1. No significant change in opacities throughout the left lung consistent with small pleural effusion and pneumonia superimposed over emphysema. 2. Unchanged subtle opacities in the right lower lung zones which could represe nt atelectasis or additional pneumonia.
--- NOTE | ~2021-02-03 | CT_ITS ---
EXAMINATION: CT diagnostic chest wo con DATE: 02/06/2021 10:01 INDICATION: Pneumonia ? JESUS cavity TECHNIQUE: Computed tomography (CT) of the chest was performed pneumonia with possible cavitary left upper lung disease. intravenous contrast. Additional 3D reconstructions utilizing coronal maximum int ensity projection (MIP) were performed. The dose-length product was 333.67 mGy-cm. COMPARISON: 01/27/2021 FINDINGS: Moderate upper lung predominant emphysema. Persistent consolidation in the left upper lobe with more caudal progression of consolidation into the posterior lingula and new consolidation in the basilar s egments of the left lower lobe, laterally with associated volume loss to at least in part to atelecta sis. New small posteriorly layering left pleural effusion. There are larger diameter lucent airspace disease in the left upper lobe at least some of which appear to varicose bronchiectatic changes there may have been some coalescence of the emphysematous airspaces. There is however no discrete thick-wa lled cavitary lesion. Mild atelectasis along the right lung base and in the dependent right upper lob e. No right pleural effusion. Heart size is normal. No pericardial effusion. Atherosclerotic coronary artery calcification. Atherosclerotic thoracic aorta is normal in caliber. Unchanged mild likely liv ctive mild thoracic spondylosis. Mediastinal lymphadenopathy. IMPRESSION: 1. Progression of right upper lobar pneumonia now extending to the lingula and left lower lobe with d evelopment of a small left pleural effusion. 2. Moderate underlying upper lobe predominant emphysema with some interval development of likely vari cose bronchiectasis and some coalescence of the emphysematous changes at the left upper lobe but no d iscrete thick-walled cavitary lesion identified. Reviewed, dictated and finalized at location A. IMPRESSION: 1. Progression of right upper lobar pneumonia now extending to the lingula and left lower lobe with development of a small left pleural effusion. 2. Moderate underlying upper lobe predominant emphysema with some interval deve lopment of likely varicose bronchiectasis and some coalescence of the emphysema tous changes at the left upper lobe but no discrete thick-walled cavitary lesio n identified.
--- NOTE | ~2021-02-03 | XR_ITS ---
EXAMINATION: XR chest 1V portable DATE: 02/06/2021 07:48 INDICATION: Pneumonia TECHNIQUE: frontal view of the chest was obtained. COMPARISON: Chest radiograph dated 02/05/2021 FINDINGS: No significant change in patchy small left pleural effusion. No pneumothorax or right-sided pleural e ffusion. Airspace opacities throughout the left lung and mild more streaky opacities at the right asia g base. The cardiomediastinal silhouette is normal. IMPRESSION: 1. Small left pleural effusion and persistent patchy opacities throughout the left lung consistent wi th pneumonia. 2. More streaky opacities at the right lung base and favor atelectasis over pneumonia. Reviewed, dictated and finalized at location A. IMPRESSION: 1. Small left pleural effusion and persistent patchy opacities throughout the l eft lung consistent with pneumonia. 2. More streaky opacities at the right lung base and favor atelectasis over pne umonia.
--- NOTE | ~2021-02-03 | XR_ITS ---
EXAMINATION: XR chest 2V EXAM DATE: 02/03/2021 14:52 INDICATION: Dyspnea HX pulmonary embolism, hypertension, COPD TECHNIQUE: Frontal and lateral projections of the chest obtained and reviewed. Comparison is made to prior examination from 02/01/2021, 01/29/2021, 01/27/2021. FINDINGS: Again there is large amount of multifocal left upper lobe predominant airspace disease, co uld be combination of pneumonia and infarction. Amount of lung involvement appears unchanged compared to prior studies but there may be developing small amount of cavitation, necrosis. No pneumothorax or pleural effusion. Cardiomediastinal silhouette is normal. There are no osseous abn ormalities identified. IMPRESSION: Multifocal left upper lobe airspace disease probably combination of infarction and pneumo soila. Possible developing cavitation. Reviewed, dictated and finalized at location A. IMPRESSION: Multifocal left upper lobe airspace disease probably combination of infarction and pneumonia. Possible developing cavitation.
--- NOTE | ~2021-02-03 | XR_ITS ---
EXAMINATION: XR chest 1V portable DATE: 02/07/2021 08:13 INDICATION: Pneumonia TECHNIQUE: frontal view of the chest was obtained. COMPARISON: Chest radiograph and CT dated 02/06/2021 FINDINGS: Opacities throughout the left lung consistent with pneumonia superimposed over moderate emphysema. Mo re subtle opacities at the right lung base and in the right midlung zone at the base of the right upp er lobe which could represent additional pneumonia or atelectasis. Small left pleural effusion with b lunting at the left costophrenic angle. The opacities in the left lung appears slightly improved most likely representing decrease in size of the pleural effusion. No pneumothorax. The cardiomediastinal silhouette is normal. IMPRESSION: 1. Opacities throughout the left lung consistent with pneumonia superimposed over emphysema. 2. Small left pleural effusion likely decrease in size since the prior study. 3. More subtle opacities in the right mid and lower lung zones which could represent either additiona l pneumonia or atelectasis. Reviewed, dictated and finalized at location A. IMPRESSION: 1. Opacities throughout the left lung consistent with pneumonia superimposed ov er emphysema. 2. Small left pleural effusion likely decrease in size since the prior study. 3. More subtle opacities in the right mid and lower lung zones which could repr esent either additional pneumonia or atelectasis.
--- NOTE | ~2021-02-03 | XR_ITS ---
EXAMINATION: XR chest 1V portable DATE: 02/14/2021 09:48 INDICATION: Shortness of breath. Cough. TECHNIQUE: A single frontal view of the chest was obtained. COMPARISON: Chest 2 views 02/11/2021, chest CT 02/06/2021 FINDINGS: There are lucencies in the lungs, consistent with emphysema. There are airspace opacities i n all left lung zones, worst in left upper lobe, consistent with pneumonia. There is mild atelectasis in right lower lung zone. No pleural effusion or pneumothorax. The heart size is normal. IMPRESSION: 1. Diffuse left lung disease with improvement at left lung base, consistent with pneumonia. 2. Emphysema. Reviewed, dictated and finalized at location A. IMPRESSION: 1. Diffuse left lung disease with improvement at left lung base, consistent wit h pneumonia. 2. Emphysema.
--- NOTE | ~2021-02-03 | US_ITS ---
EXAMINATION: US renal BI EXAM DATE: 02/04/2021 09:54 INDICATION: Acute kidney insufficiency. TECHNIQUE: Multiple grayscale and Doppler images of the kidneys were obtained (by a technologist who performed the scan) and subsequently reviewed. There is no prior study for comparison. FINDINGS: Right kidney: There is normal contour and echogenicity. It measures 11.2 x 5.5 x 5.6 centimeters. T here are no focal renal lesions identified. There is no hydronephrosis. Left kidney: There is normal contour and echogenicity. It measures 11.7 x 4.8 x 6.5 centimeters. Th ere are no focal renal lesions identified. There is no hydronephrosis. There is Green catheter within a collapsed bladder. IMPRESSION: Sonographically unremarkable kidneys. Reviewed, dictated and finalized at location A.
--- NOTE | 2021-02-03 13:38 | ECG_ITS ---
Measurements Intervals [place] Rate: 101 P: 66 TN: 144 QRS: 18 QRSD: 90 T: 90 QT: 371 QTc: 483 Interpretive Statements SINUS TACHYCARDIA ATRIAL AND VENTRICULAR PREMATURE COMPLEXES EARLY PRECORDIAL R/S TRANSITION BORDERLINE ST-T WAVE ABNORMALITY- HIGH LATERAL LEADS BASELINE ARTIFACT- I, II, III, AVR, AVL, AVF, V1-V6 ABNORMAL ECG Electronically Signed On 02-03-2021 14:23:14 CDT by Alejo Cyr D.O.
[2021-02-03 14:11] LABS: Hematocrit 36.7 % (42.0-52.0); Hemoglobin 11.6 g/dL (14.0-18.0); Mean Corpuscular HGB Conc 31.6 g/dl (32-36); Mean Corpuscular Hemoglobin 30.1 pg (26-34); Mean Corpuscular Volume 95.3 fl (80-100); Mean Platelet Volume 9.9 fl (7.4-10.4); Platelet Count Result 547 k/mm3 (150-375); Red Blood Count 3.85 M/mm3 (4.6-6.20); Red Cell Distribution Width 14.2 % (11.5-14.5); White Blood Count 22.2 K/mm3 (4.5-10.0)
[2021-02-03 14:13] LABS: Alveolar/Arterial O2 Gradient 81.6 mmHg; Base Excess ABG 7.7 mEq/l (+/-2.0); Fractional Inspired Oxygen 28 %; Oxygen Content ABG 16.4 %vol (16.0-22.0); PCO2 ABG 38.5 mmHg (35.0-45.0); PO2 ABG 72.6 mmHg (80.0-100.0); PO2 FiO2 Ratio Arterial Blood 2.59 %; Total Hemoglobin 12.4 g/dL (12.0-18.0)
[2021-02-03 14:15] LABS: Modified Allen's Test Pass; Site Drawn LEFT RADIAL; pH ABG 7.524 (7.350-7.450)
[2021-02-03 14:16] LABS: Device NASAL CANNULA
[2021-02-03 14:29] LABS: Blood Urea Nitrogen 47 mg/dL (9-20); Calcium 9.1 mg/dL (8.4-10.2); Carbon Dioxide > 40 mmol/L (22-30); Chloride 85 mmol/L (98-107); Estimated CRCL calculation 18 ml/min; Estimated Glomerular Filt Rate 18; Glucose 112 mg/dL (65-110); Potassium 3.6 mmol/L (3.4-5.0); Sodium 136 mmol/L (137-145)
[2021-02-03 14:31] LABS: Anisocytosis 2+ (NORMAL); Atypical Lymphocytes Present
[2021-02-03 14:40] LABS: NT Pro B Type Natriuretic Pept 412 pg/mL (5-100); Troponin I < 0.012 ng/mL (0.000-0.034)
[2021-02-03 14:50] LABS: Neutrophils Percent Manual 71 % (46-73); Total Cells Counted 100
[2021-02-03 14:51] LABS: Band Neutrophils Percent 7 % (0-6); Lymphocytes Percent Manual 11 % (18-44); Neutrophils Absolute Manual 17.31 K/mm3 (1.3-6.7)
[2021-02-03 14:52] LABS: Lymphocytes Absolute Manual 2.44 K/mm3 (1.1-4.5)
[2021-02-03 14:53] LABS: Monocytes Absolute Manual 2.44 K/mm3 (0.1-0.90); Monocytes Percent Manual 11 % (3-9)
--- NOTE | 2021-02-03 15:14 | ED.SOB ---
HPI - SOB/Dyspnea General Chief Complaint: Shortness of Breath/Dyspnea Stated Complaint: SOB Time Seen by Provider: 02/03/21 13:42 Source: patient, family, RN notes reviewed and old records reviewed History of Present Illness HPI Narrative: Patient presents with not feeling well. Patient reports he had a difficult time using his home oxygen and has been off oxygen all night and this morning was feeling worse and reports his oxygen levels were in the 80s they were concerned so sent to the ER for evaluation. Patient was recently discharged with a diagnosis of pneumonia and PE. Patient reports he took his anticoagulation and his antibiotics today continues to feel generally unwell with associated chest pain and shortness of breath. Reports when he was discharged he felt his symptoms were improved he tried to contact his primary care doctor who instructed him to go to the ER for further evaluation given worsening of his symptoms. Related Data Home Medications Medication Instructions Recorded Confirmed atorvastatin 10 mg PO HS 10/01/19 01/27/21 Allergies Allergy/AdvReac Type Severity Reaction Status Date / Time No Known Allergies Allergy Verified 01/27/21 15:42 Review of Systems Review of Systems: CONSTITUTIONAL: Denies fever, chills, or sweats. EYES: Denies visual changes, redness, or discharge. ENT: Denies rhinorrhea, congestion, sore throat, or otalgia. CARDIOVASCULAR: Denies palpitations, or edema. RESPIRATORY: Patient reports shortness of breath GASTROINTESTINAL: Denies abdominal pain, nausea, vomiting, or diarrhea. GENITOURINARY: Patient ports he is not been urinating since his discharge SKIN: Denies rash or itching. MUSCULOSKELETAL: Denies back pain, joint pain, or myalgia. NEUROLOGIC: Denies headache, numbness, dizziness, or weakness. PSYCHIATRIC: Denies anxiety or depression. All systems reviewed & are unremarkable except as noted in HPI and below PMFSH Past Medical History Medical History Benign prostatic hyperplasia Chronic obstructive pulmonary disease Hyperlipidemia Hypertension Kidney stones Psoriasis Tobacco dependence Surgical History Surgical History History of cataract extraction with lens replacement History of inguinal hernia repair History of lithotripsy History of open reduction and internal fixation (ORIF) procedure Right ankle fracture. Family History Family History Mother Parkinson's disease Lung cancer Sibling Acute myocardial infarction Diabetes mellitus Father Pulmonary embolism Social History Social History Social History: Surrogate decision maker: Micki Luna, spouse. Code status: Full code. Smoking packs per day: 1 Smoking cigarettes per day: 20.0 Years smoked: 55 Smoking pack-years: 55.00 Smoking status: Current every day smoker Tobacco type: cigarettes Alcohol intake: never Substance use: never Additional living arrangements comments: Resides in [place] with his . 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 Spiritual care concerns: No Exam Narrative: GENERAL: Well-appearing, well-nourished, and in no acute distress. HEAD: Normocephalic, atraumatic. EYES: PERRLA and EOMI. ENT: Nares clear, no rhinorrhea or epistaxis. Mucous membranes moist. NECK: Supple. No masses. No JVD CHEST: Mild diffuse wheezing with tachypnea HEART: Regular rate and rhythm. No murmur heard. Normal peripheral pulses. ABDOMEN: Soft, nontender, nondistended, normal active bowel sounds. EXTREMITIES: Normal range of motion. Scant symmetric pitting edema SKIN: Warm, dry, no rash. NEURO: No focal deficits. Alert and oriented x3. PSYCH: Normal mood and affect. Course Reevaluation(s) Reevaluation #1: Patient
[2021-02-03 18:57] LABS: Add Urine Microscopic? YES; Appearance Urine Clear (Clear); Bilirubin Urine Negative (Negative); Blood Urine 2+ (Negative); Color Urine Yellow (Yellow); Glucose Urine UA Negative (Negative); Ketones Urine Negative (Negative); Leukocyte Esterase Ur Negative LEU/UL (Negative); Nitrate Urine Negative (Negative); Protein Urine 2+ mg/dL (Negative); Urobilinogen Urine Negative mg/dL (<2.0); WBC Urine 0-3 /hpf
[2021-02-03 19:18] LABS: Sodium Urine Random 39 meq/L
[2021-02-03] MEDS: SODIUM CHLORIDE 0.9% IV 1,000 ML 125 ML IV CONT (21:29)
--- NOTE | 2021-02-03 21:42 | ADMGEN ---
This patient, Ivan Luna, was admitted to Medical Room 250-01. Patient/family oriented to hospital policies and general routines including ID bracelet, bed and alarms, visiting hours, pain management, procedures, bathroom and other care routines, personal items, smoking policy, room service/diet, and visiting hours. Information on how to activate the Rapid Response Team has been discussed. Patient/Family are encouraged to report perceived risks to care and to ask questions if they do not understand what they are told or what they should do.
--- NOTE | 2021-02-03 22:21 | PM.IMHP ---
H&P: HPI History of Present Illness Date/Time: 02/03/21 22:21 this is a 75-year-old male patient who has COPD, PE and pneumonia. The patient was discharged from here yesterday evening. The patient stated that he had a very rough night. He has oxygen at home but woke up screaming and gasping for air during the night. The patient states that maybe his oxygen came off during his sleep. He was not sure if his portable tank ran about out of oxygen Or if his oxygen him off during the night. however the home health nurse came today and discovered that his oxygen level was in the 80s. He called his doctor who referred him to come back into the emergency room. The patient stated that he just picked up his prescriptions from the pharmacy yesterday but has not taken them yet. When patient was discharged on the his creatinine was 0.8 today it is 3.3. The patient was started on IV fluids. His white count is up to 22.2. H&H 11.6 and 36.7 which is above average for him. Arterial blood gases pH 7.524 with PO2 72.6. Bicarb 31.0. Patient sputum culture from 01/27/2021 just shows growth of normal oropharyngeal dang. The patient stated that he did not go home and smoke and that he quit smoking a couple weeks ago. He also stated that nobody else in the house smokes either. Nephrology has been consulted per ED physician. The patient is being admitted for observation status on the date of service of 02/03/2021. Chief Complaint: shortness of breath Review of Systems Review of Systems: All systems reviewed & are unremarkable except as noted in HPI and below Constitutional: Constitutional: Reports as per HPI and Reports no additional constitutional complaints Eyes: Eyes: Reports as per HPI and Reports no additional eye complaints ENT: Reports system reviewed and no additional complaints, except as documented and Reports Normal hearing present Cardiovascular: Cardiovascular: Reports no additional cardiovascular complaints Respiratory: Respiratory: Reports no additional respiratory complaints and Reports no additional respiratory complaints Gastrointestinal: Gastrointestinal: Reports as per HPI and Reports no additional gastrointestinal complaints Musculoskeletal: Musculoskeletal: Reports no additional musculoskeletal complaints Integumentary/Breasts: Skin/Breast: Reports system reviewed and no additional complaints, except as docu and Reports as per HPI Neurologic: Reports system reviewed and no additional complaints, except as documented, Reports as per HPI and Reports Normal hearing present Psychiatric: Psychiatric: Reports no additional psychiatric complaints and Reports as per HPI Endocrine: Endocrine: Reports no additional endocrine complaints Hematologic/Lymphatic: Hematologic/Lymphatic: Reports no additional hematologic/lymphatic complaints Allergic/Immunologic: Allergic/Immunologic: Reports no additional allergic/immunologic complaints [facility] Past Medical History Medical History (Updated 02/03/21 @ 22:26 by Rosalie Talbot NP) Benign prostatic hyperplasia Chronic obstructive pulmonary disease Hyperlipidemia Hypertension Kidney stones Oxygen dependent Psoriasis Tobacco dependence Surgical History Surgical History History of cataract extraction with lens replacement History of inguinal hernia repair History of lithotripsy History of open reduction and internal fixation (ORIF) procedure Right ankle fracture. Family History Family History Mother Parkinson's disease Lung cancer Sibling Acute myocardial infarction Diabetes mellitus Father Pulmonary embolism Social History Social History (Updated 02/03/21 @ 22:26 by Rosalie Talbot NP) Social History: Surrogate decision maker: Micki Luna, spouse. Code status: Full code. the patient stated that he has 10 children. The patient stated that he quit sm
[2021-02-03] MEDS: MELATONIN 3 MG TABLET PO (23:12)
[2021-02-04] VITALS (19 sets, daily range): BP systolic 107–118; BP diastolic 56–66; PULSE 70–98; RESP 20–24; TEMP 36.3–37; O2SAT 90–96
[2021-02-04 00:18] LABS: Blood Urea Nitrogen 49 mg/dL (9-20); Calcium 8.4 mg/dL (8.4-10.2); Carbon Dioxide > 40 mmol/L (22-30); Chloride 89 mmol/L (98-107); Estimated CRCL calculation 16 ml/min; Estimated Glomerular Filt Rate 16; Glucose 94 mg/dL (65-110); Potassium 3.5 mmol/L (3.4-5.0); Sodium 137 mmol/L (137-145)
[2021-02-04] MEDS: IPRATROPIUM BR 0.02% INH SOLN 0.5 MG/2.5 ML VIAL INHALATION ×3 (03:37→20:32)
[2021-02-04 05:43] LABS: Hematocrit 31.6 % (42.0-52.0); Mean Corpuscular HGB Conc 31.6 g/dl (32-36); Mean Corpuscular Hemoglobin 29.8 pg (26-34); Mean Platelet Volume 10.2 fl (7.4-10.4); Platelet Count Result 486 k/mm3 (150-375); Red Blood Count 3.36 M/mm3 (4.6-6.20); Red Cell Distribution Width 14.3 % (11.5-14.5); White Blood Count 18.8 K/mm3 (4.5-10.0)
[2021-02-04 05:47] LABS: Blood Urea Nitrogen 52 mg/dL (9-20); Calcium 8.2 mg/dL (8.4-10.2); Carbon Dioxide > 40 mmol/L (22-30); Chloride 92 mmol/L (98-107); Estimated CRCL calculation 15 ml/min; Estimated Glomerular Filt Rate 15; Glucose 102 mg/dL (65-110); Lactate Dehydrogenase 421 U/L (313-618); Magnesium 2.4 mg/dL (1.6-2.3); Potassium 3.7 mmol/L (3.4-5.0); Sodium 136 mmol/L (137-145)
[2021-02-04 06:06] LABS: CRP 13.5 mg/dL (<1.0)
[2021-02-04 06:19] LABS: Anisocytosis 1+ (NORMAL); Platelet Estimate Increased (Adequate)
[2021-02-04 06:20] LABS: Atypical Lymphocytes Present
[2021-02-04] MEDS: APIXABAN 5 MG TABLET PO (09:24)
[2021-02-04] MEDS: IPRATROPIUM BR 0.02% INH SOLN 0.5 MG/2.5 ML VIAL 2 MG INHALATION (11:09)
[2021-02-04] MEDS: ALBUTEROL SULFATE NEB 2.5 MG/3 ML INH 1.25 MG INHALATION (11:09)
[2021-02-04] MEDS: SODIUM CHLORIDE 0.9% IV 1,000 ML 75 ML IV CONT (11:46)
[2021-02-04] MEDS: lisinopriL 20 MG TABLET PO (11:46)
--- NOTE | 2021-02-04 16:41 | PM.IMPN ---
Progress Note: A&P Assessment and Plan (1) Acute kidney injury: Code(s): N17.9 - Acute kidney failure, unspecified Status: Acute Assessment and Plan: Acute non oliguric kidney injury. Likely related to side effect of antibiotic and possibly overdiuresis. He was discharged recently 2 days ago with a creatinine of 0.6. At the time he was tolerating diuresis with furosemide with a stable kidney function. Renal ultrasound did not reveal any morphologic abnormalities. (2) Pulmonary embolism: Code(s): I26.99 - Other pulmonary embolism without acute cor pulmonale Status: Acute Assessment and Plan: The patient is started on home dose of Eliquis. The patient had been on a heparin drip while he was admitted here. (3) Acute respiratory failure with hypoxia: Code(s): J96.01 - Acute respiratory failure with hypoxia Status: Acute Assessment and Plan: Patient recently discharged on home oxygen. Patient admits to non compliance for a few hours after arriving home. Likely related to his recent diagnosis of acute pulmonary embolism. Recent echocardiogram did not reveal any right ventricular strain. Patient was also diagnosed with COPD/emphysema believed to be advanced. He continues to smoke. Continue with aggressive nebulizer treatment and oxygen supplementation. The patient stated that he cannot lie flat and he typically has is head up on a pillow at home. Due to CLAU we are holding off from diuresis. (4) Chronic obstructive pulmonary disease: Code(s): J44.9 - Chronic obstructive pulmonary disease, unspecified Status: Acute Assessment and Plan: Aggressive nebulization and oxygen supplementation to keep saturation above 90. (5) Community acquired pneumonia: Code(s): J18.9 - Pneumonia, unspecified organism Status: Acute Assessment and Plan: The patient had been on levofloxacin which could cause some nephrotoxicity. The patient had already completed a round of azithromycin Rocephin during his stay here. (6) Oxygen dependent: Code(s): Z99.81 - Dependence on supplemental oxygen Status: Chronic Assessment and Plan: The patient has a history of COPD for many years. Patient is oxygen dependent at home. The patient stated that he just recently stopped smoking over the last couple weeks. Patient is currently on 2 L per nasal cannula at this time. (7) Benign prostatic hyperplasia: Code(s): N40.0 - Benign prostatic hyperplasia without lower urinary tract symptoms Status: Acute Assessment and Plan: Continue with home medications. NO evidence of urainry obstruction. (8) Hypertension: Code(s): I10 - Essential (primary) hypertension Status: Chronic Assessment and Plan: P.r.n. hydralazine hold lisinopril and Lasix for today. (9) Hyperlipidemia: Code(s): E78.5 - Hyperlipidemia, unspecified Status: Acute Assessment and Plan: Continue with home medication. Atorvastatin Subjective Date/time seen: This is a 75-year-old gentleman who was discharged 2 days ago after a diagnosis of acute pulmonary embolsim complicated by COPD, community acquired pneumonia and heart failure exacerbation. He came back for shortness of breath and was diagnosed with acute kidney injury. 02/04/21 16:41 S: Today the patient is examined at the bedside. He is complaning of shortness of breath and chest pain. Review of Systems Constitutional: Constitutional: Reports fatigue, Reports lethargy and Reports weakness Eyes: Eyes: Denies blurry vision ENT: Denies dysphagia Cardiovascular: Cardiovascular: Reports chest pain, Denies diaphoresis, Denies leg edema, Denies lightheadedness and Denies palpitations Respiratory: Respiratory: Denies chest congestion, Denies cough, Reports dyspnea, Reports dyspnea on exertion and Denies wheezing Gastrointestinal: Gastrointestinal: Reports abdominal pain, Reports diarrhea,
[2021-02-04] MEDS: HYDROcodone/acetaminophen (*CRX) 10-325 MG TABLET 1 TAB PO (17:21)
[2021-02-04 18:10] LABS: Creatinine Urine 87.1 mg/dL
[2021-02-04 18:15] LABS: Potassium Urine Random 20.7 meq/L; Sodium Urine Random 67 meq/L
[2021-02-04] MEDS: MELATONIN 3 MG TABLET PO (21:45)
[2021-02-04] MEDS: APIXABAN 5 MG TABLET 10 MG PO (21:45)
[2021-02-04] MEDS: ATORVASTATIN 10 MG TABLET PO (21:45)
[2021-02-04 22:10] LABS: Total Protein Urine Random 81 mg/dL
[2021-02-05] VITALS (23 sets, daily range): BP systolic 124–139; BP diastolic 55–71; PULSE 77–95; RESP 20–28; TEMP 36.2–36.9; O2SAT 92–100; BMI 29.6
[2021-02-05] MEDS: SODIUM CHLORIDE 0.9% IV 1,000 ML 75 ML IV CONT ×2 (01:15→14:39)
[2021-02-05] MEDS: IPRATROPIUM BR 0.02% INH SOLN 0.5 MG/2.5 ML VIAL INHALATION ×4 (01:59→21:22)
[2021-02-05 08:54] LABS: Hematocrit 32.9 % (42.0-52.0); Hemoglobin 10.3 g/dL (14.0-18.0); Mean Corpuscular HGB Conc 31.3 g/dl (32-36); Mean Corpuscular Hemoglobin 30.5 pg (26-34); Mean Corpuscular Volume 97.3 fl (80-100); Mean Platelet Volume 9.8 fl (7.4-10.4); Platelet Count Result 442 k/mm3 (150-375); Red Blood Count 3.38 M/mm3 (4.6-6.20); Red Cell Distribution Width 14.6 % (11.5-14.5)
[2021-02-05 09:05] LABS: Anion Gap 7 mmol/L (8-16); Blood Urea Nitrogen 62 mg/dL (9-20); Calcium 7.9 mg/dL (8.4-10.2); Carbon Dioxide 34 mmol/L (22-30); Chloride 95 mmol/L (98-107); Estimated CRCL calculation 12 ml/min; Estimated Glomerular Filt Rate 12; Glucose 100 mg/dL (65-110); Sodium 136 mmol/L (137-145)
[2021-02-05 09:28] LABS: Band Neutrophils Percent 11 % (0-6); Monocytes Percent Manual 2 % (3-9); Neutrophils Percent Manual 79 % (46-73); Total Cells Counted 100
[2021-02-05 09:29] LABS: Platelet Estimate Increased (Adequate)
[2021-02-05 10:35] LABS: INR 1.8; Prothrombin Time 20.4 Seconds (11.1-14.7)
[2021-02-05 10:36] LABS: Partial Thromboplastin Time 45.2 SECONDS (22.3-36.8)
--- NOTE | 2021-02-05 11:36 | PC.NURSE ---
This patient, Ivan Luna, was received from [facility] on 02/05/21 at 1136. Report received from ARIEL Martines. Patient oriented to unit policies and routines
--- NOTE | 2021-02-05 11:41 | PC.NURSE ---
This patient, Ivan Luna, was transferred to [[id number]] on 02/05/21 at 1141. Personal belongings sent with patient. Report given to [Monika]. Appropriate documentation sent with patient.
[2021-02-05] MEDS: HEPARIN SODIUM 5,000 UNITS/ML VIAL 5500 UNITS IV PUSH (11:50)
[2021-02-05] MEDS: HEPARIN SOD/D5W 100 UNITS/ML 25,000 UNITS/250 ML BAG 13 UNITS IV CONT (11:51)
--- NOTE | 2021-02-05 14:49 | PM.CNNEP ---
Assessment and Plan Assessment and plan (1) Acute kidney injury: Code(s): N17.9 - Acute kidney failure, unspecified Status: Acute Assessment and Plan: Acute non oliguric kidney injury. BP was 80/53, 90/45 upon re-admission per chart. May be related to side effect of antibiotic and possibly overdiuresis. He was discharged recently with a creatinine of 0.6. At the time, he was tolerating diuresis with furosemide with a stable kidney function. Renal ultrasound did not reveal any morphologic abnormalities. Recommend: stabilization of blood pressure, continue IV hydration. 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 Hold Diuretics for now Monitor I and O's, Avoid NSAIDs or nephrotoxic meds. renal will follow closely. (2) Pulmonary embolism: Code(s): I26.99 - Other pulmonary embolism without acute cor pulmonale Status: Acute Assessment and Plan: The patient is started on home dose of Eliquis. (3) Acute respiratory failure with hypoxia: Code(s): J96.01 - Acute respiratory failure with hypoxia Status: Acute Assessment and Plan: Patient recently discharged on home oxygen. Patient admits to non compliance for a few hours after arriving home. Likely related to his recent diagnosis of acute pulmonary embolism. Recent echocardiogram did not reveal any right ventricular strain. Patient was also diagnosed with COPD/emphysema believed to be advanced. He continues to smoke. Continue with aggressive nebulizer treatment and oxygen supplementation. The patient stated that he cannot lie flat and he typically has is head up on a pillow at home. Due to CLAU we are holding off from diuresis. (4) Chronic obstructive pulmonary disease: Code(s): J44.9 - Chronic obstructive pulmonary disease, unspecified Status: Acute Assessment and Plan: Aggressive nebulization and oxygen supplementation to keep saturation above 90. (5) Community acquired pneumonia: Code(s): J18.9 - Pneumonia, unspecified organism Status: Acute Assessment and Plan: The patient had been on levofloxacin which could cause some nephrotoxicity. The patient had already completed a round of azithromycin Rocephin during his stay here. (6) Oxygen dependent: Code(s): Z99.81 - Dependence on supplemental oxygen Status: Chronic Assessment and Plan: The patient has a history of COPD for many years. Patient is oxygen dependent at home. The patient stated that he just recently stopped smoking over the last couple weeks. Patient is currently on 2 L per nasal cannula at this time. (7) Benign prostatic hyperplasia: Code(s): N40.0 - Benign prostatic hyperplasia without lower urinary tract symptoms Status: Acute Assessment and Plan: Continue with home medications. NO evidence of urainry obstruction. (8) Hypertension: Code(s): I10 - Essential (primary) hypertension Status: Chronic Assessment and Plan: P.r.n. hydralazine hold lisinopril and hold Lasix for today as well. (9) Hyperlipidemia: Code(s): E78.5 - Hyperlipidemia, unspecified Status: Acute Assessment and Plan: Continue with home medication. Atorvastatin History of Present Illness Reason for Consult Consult date: 02/05/21 Chief Complaint Chief complaint: CLAU History of Present Illness Narrative: 75-year-old male patient who has COPD, PE and pneumonia. The patient was discharged from the hospital 02/02/21. Patient came back and got re-admitted on 02/03/2021. The patient stated that he had a very rough night. He has oxygen at home but woke up screaming and gasping for air during the night. The patient states that maybe his oxygen came off during his sleep. He was not sure if his portable tank ran about out of oxygen Or if his oxygen him off during the night. however the home health nurse came today and discove
--- NOTE | 2021-02-05 14:53 | PM.IMPN ---
Progress Note: A&P Assessment and Plan (1) Acute kidney injury: Code(s): N17.9 - Acute kidney failure, unspecified Status: Acute Assessment and Plan: Acute non oliguric kidney injury. Likely prerenal versus ATN. May be related to side effect of antibiotic. Unlikely overdiuresis. Creatinine normal 2 days prior at the time of discharge. Check urine electrolytes. Urine Na 67. He was discharged recently 2 days ago with a creatinine of 0.6. At the time he was tolerating diuresis with furosemide with a stable kidney function. Renal ultrasound did not reveal any morphologic abnormalities. (2) Pulmonary embolism: Code(s): I26.99 - Other pulmonary embolism without acute cor pulmonale Status: Acute Assessment and Plan: The patient is started on home dose of Eliquis on admission. given worsening renal function we are reinstating a heparin drip. Monitor PTT. (3) Acute respiratory failure with hypoxia: Code(s): J96.01 - Acute respiratory failure with hypoxia Status: Acute Assessment and Plan: Patient recently discharged on home oxygen. Patient admits to non compliance for a few hours after arriving home. Likely related to his recent diagnosis of acute pulmonary embolism. Recent echocardiogram did not reveal any right ventricular strain. Patient was also diagnosed with COPD/emphysema believed to be advanced. He continues to smoke. Continue with aggressive nebulizer treatment and oxygen supplementation. The patient stated that he cannot lie flat and he typically has is head up on a pillow at home. Due to CLAU we are holding off from diuresis. Chest pain managed with acetaminophen and hydrocodone. Cough managed with guaifenesin/codeine. (4) Chronic obstructive pulmonary disease: Code(s): J44.9 - Chronic obstructive pulmonary disease, unspecified Status: Acute Assessment and Plan: Aggressive nebulization and oxygen supplementation to keep saturation above 90. (5) Community acquired pneumonia: Code(s): J18.9 - Pneumonia, unspecified organism Status: Acute Assessment and Plan: The patient had been on levofloxacin which could cause some nephrotoxicity. The patient had already completed a round of azithromycin Rocephin during his stay here. wbcs are trending down. No fever. Chest Xray:diffuse increased left pulmonary infiltrate and interval right lower lung infiltrate since 02/03/2021, greatest in the left upper lobe, with possible developing cavitation. Stop antibiotics. (6) Oxygen dependent: Code(s): Z99.81 - Dependence on supplemental oxygen Status: Chronic Assessment and Plan: The patient has a history of COPD for many years. Patient is oxygen dependent at home. The patient stated that he just recently stopped smoking over the last couple weeks. Patient is currently on 2 L per nasal cannula at this time. nicotine patch PRN. (7) Benign prostatic hyperplasia: Code(s): N40.0 - Benign prostatic hyperplasia without lower urinary tract symptoms Status: Acute Assessment and Plan: Continue with home medications. NO evidence of urainry obstruction. (8) Hypertension: Code(s): I10 - Essential (primary) hypertension Status: Chronic Assessment and Plan: P.r.n. hydralazine hold lisinopril and Lasix for today. (9) Hyperlipidemia: Code(s): E78.5 - Hyperlipidemia, unspecified Status: Acute Assessment and Plan: Continue with home medication. Atorvastatin Subjective Date/time seen: 02/05/21 14:53 Review of Systems Review of Systems: All systems reviewed & are unremarkable except as noted in HPI and below Constitutional: Constitutional: Reports as per HPI, Reports no additional constitutional complaints, Reports fatigue, Reports lethargy and Reports weakness Eyes: Eyes: Reports as per HPI, Reports no additional eye complaints and Denies blurry vision ENT: Reports system reviewe
[2021-02-05] MEDS: UMECLIDINIUM/VILANTEROL 62.5-25 MCG ELLIPTA 1 PUFF INHALATION (15:31)
[2021-02-05] MEDS: guaiFENesin/CODEINE (*CRX) 200/20 MG 10 ML SYRUP PO ×2 (15:55→21:39)
--- NOTE | 2021-02-05 16:22 | PM.CNPUL ---
Assessment and Plan Assessment and plan (1) Acute kidney injury: Code(s): N17.9 - Acute kidney failure, unspecified Status: Acute Assessment and Plan: patient was evaluated by Nephrology, currently receiving IV fluids. (2) Pulmonary embolism: Onset Date: ~01/2021 Qualifiers: Chronicity: acute Code(s): I26.99 - Other pulmonary embolism without acute cor pulmonale Status: Acute Assessment and Plan: Patient was recently diagnosed with pulmonary embolism. He was discharged home on a direct anticoagulant which was discontinued because of acute renal failure. He is currently on IV heparin drip with frequent monitoring of PTT as per protocol. We will continue with current Rx for now. (3) Acute respiratory failure with hypoxia: Code(s): J96.01 - Acute respiratory failure with hypoxia Status: Acute Assessment and Plan: Patient has underlying COPD as suggested by history of chronic shortness of breath on exertion, chronic cough, presence of hypercapnia on most recent admission. The superimposed thromboembolic disease in conjunction with COPD explains the patient's acute respiratory failure. It is unclear whether the left upper lobe infiltrate is related to community-acquired pneumonia. Patient has received antibiotic treatment for pneumonia and sputum culture was not diagnostic. Will continue with supplemental oxygen at 4 liters/minute. (4) Chronic obstructive pulmonary disease: Code(s): J44.9 - Chronic obstructive pulmonary disease, unspecified Status: Acute Assessment and Plan: Chest CT showed emphysematous changes bilaterally. On physical exam the patient has distant breath sounds but no wheezing. He had hypercapnia and elevated bicarbonate during previous hospitalization. will continue with supplemental oxygen, nebulized short-acting bronchodilators p.r.n.. We may consider treatment with steroids for possible COPD exacerbation if no improvement with the current treatment. (5) Community acquired pneumonia: Code(s): J18.9 - Pneumonia, unspecified organism Status: Acute Assessment and Plan: The patient did not have symptoms suggestive of acute pneumonia such as fever chills or sputum production. Will consider chest CT to assess extent of left lung infiltrate with possible cavitation as suggested by today's chest x-ray. Inflammatory indices remain elevated. (6) Oxygen dependent: Code(s): Z99.81 - Dependence on supplemental oxygen Status: Chronic Assessment and Plan: The patient has a history of COPD for many years. Patient is oxygen dependent at home. The patient stated that he just recently stopped smoking over the last couple weeks. Patient is currently on 2 L per nasal cannula at this time. (7) Benign prostatic hyperplasia: Code(s): N40.0 - Benign prostatic hyperplasia without lower urinary tract symptoms Status: Acute Assessment and Plan: (8) Hypertension: Code(s): I10 - Essential (primary) hypertension Status: Chronic (9) Hyperlipidemia: Code(s): E78.5 - Hyperlipidemia, unspecified Status: Acute Assessment and Plan: Continue with home medication. Atorvastatin (10) Abdominal aortic aneurysm: Code(s): I71.4 - Abdominal aortic aneurysm, without rupture Status: Acute History of Present Illness History of Present Illness Consult date: 02/06/21 Chief complaint: CLAU Narrative: This 75-year-old man presented to the hospital with shortness of breath 1 day after he was discharged home. The patient was initially admitted approximately 10 days ago with increasing shortness of breath. The patient has had chronic shortness of breath for at least a year. He also has had chronic chest pain for which he has been using Advil p.r.n.. During the initial hospitalization approximately 10 days ago, the patient was diagnosed with
[2021-02-05 16:32] LABS: Creatinine Urine 86.2 mg/dL; Sodium Urine Random 67 meq/L; Total Protein Urine Random 49 mg/dL; Urea Random Urine 472 MG/DL
[2021-02-05] MEDS: HYDROcodone/acetaminophen (*CRX) 10-325 MG TABLET 1 TAB PO (17:51)
[2021-02-05] MEDS: LORazepam (*CRX) 1 MG TABLET PO ×2 (17:51→21:39)
[2021-02-05 18:30] LABS: Partial Thromboplastin Time 74.8 SECONDS (22.3-36.8)
[2021-02-05] MEDS: ALBUTEROL SULFATE NEB 2.5 MG/0.5 ML INH 5 MG INHALATION (21:22)
[2021-02-05] MEDS: MELATONIN 3 MG TABLET PO (21:39)
[2021-02-05] MEDS: ATORVASTATIN 10 MG TABLET PO (21:39)
[2021-02-06] VITALS (25 sets, daily range): BP systolic 107–145; BP diastolic 66–92; PULSE 65–89; RESP 20–24; TEMP 36–36.6; O2SAT 91–96
[2021-02-06 00:51] LABS: Partial Thromboplastin Time 81.9 SECONDS (22.3-36.8)
[2021-02-06] MEDS: SODIUM CHLORIDE 0.9% IV 1,000 ML 100 ML IV CONT ×3 (02:04→21:56)
[2021-02-06] MEDS: IPRATROPIUM BR 0.02% INH SOLN 0.5 MG/2.5 ML VIAL INHALATION ×4 (02:37→21:17)
[2021-02-06] MEDS: guaiFENesin/CODEINE (*CRX) 200/20 MG 10 ML SYRUP PO ×2 (03:51→20:09)
[2021-02-06] MEDS: HYDROcodone/acetaminophen (*CRX) 10-325 MG TABLET 1 TAB PO (03:51)
[2021-02-06 05:08] LABS: Basophils Absolute Auto 0.1 K/mm3 (0.0-0.1); Basophils Percent Auto 0.5 % (0.2-1.2); Eosinophils Absolute Auto 0.6 K/mm3 (0-0.3); Eosinophils Percent Auto 3.7 % (0-4.4); Hematocrit 33.3 % (42.0-52.0); Immature Granulocyte Absolute 0.88 K/mm3 (0.00-0.031); Immature Granulocyte Percent A 5.7 % (0-0.5); Lymphocytes Absolute Auto 1.78 K/mm3 (0.9-3.2); Lymphocytes Percent Auto 11.5 % (18.3-44.2); Mean Platelet Volume 9.6 fl (7.4-10.4); Monocytes Absolute Auto 1.8 K/mm3 (0.1-0.6); Monocytes Percent Auto 11.4 % (2.6-8.5); Neutrophils Absolute Auto 10.4 K/mm3 (1.3-6.7); Neutrophils Percent Auto 67.2 % (45.5-73.1); Platelet Count Result 426 k/mm3 (150-375); Red Blood Count 3.33 M/mm3 (4.6-6.20); Red Cell Distribution Width 14.5 % (11.5-14.5); White Blood Count 15.5 K/mm3 (4.5-10.0)
[2021-02-06 05:23] LABS: Anion Gap 6 mmol/L (8-16); Blood Urea Nitrogen 65 mg/dL (9-20); Calcium 8.1 mg/dL (8.4-10.2); Carbon Dioxide 34 mmol/L (22-30); Chloride 97 mmol/L (98-107); Estimated CRCL calculation 12 ml/min; Estimated Glomerular Filt Rate 11; Glucose 115 mg/dL (65-110); Potassium 3.9 mmol/L (3.4-5.0); Sodium 137 mmol/L (137-145)
[2021-02-06 05:49] LABS: Platelet Estimate Adequate (Adequate)
[2021-02-06 05:50] LABS: Anisocytosis 1+ (NORMAL)
[2021-02-06] MEDS: HEPARIN SOD/D5W 100 UNITS/ML 25,000 UNITS/250 ML BAG 13 UNITS IV CONT (06:12)
--- NOTE | 2021-02-06 09:03 | PM.PNPUL ---
Progress Note: A&P Assessment and Plan (1) Acute kidney injury: Code(s): N17.9 - Acute kidney failure, unspecified Status: Acute Assessment and Plan: Urinary output 650 over the last 24 hours. Creatinine essentially unchanged. (2) Pulmonary embolism: Onset Date: ~01/2021 Qualifiers: Chronicity: acute Code(s): I26.99 - Other pulmonary embolism without acute cor pulmonale Status: Acute Assessment and Plan: Patient has been hemodynamically stable. At this point we will continue with IV heparin. Monitor PTT. (3) Acute respiratory failure with hypoxia: Code(s): J96.01 - Acute respiratory failure with hypoxia Status: Acute Assessment and Plan: Respiratory failure initially hypercapnic and hypoxemic related to underlying COPD and pulmonary embolism. Continue with supplemental oxygen at current flow. (4) Chronic obstructive pulmonary disease: Code(s): J44.9 - Chronic obstructive pulmonary disease, unspecified Status: Acute Assessment and Plan: Probable advanced COPD, based on chest CT findings and presence of hypercapnia on admission. No PFTs are available. Will continue with nebulized short-acting bronchodilators. No wheezing on physical exam. (5) Community acquired pneumonia: Code(s): J18.9 - Pneumonia, unspecified organism Status: Acute Assessment and Plan: Review of chest CT showed extensive left upper lobe infiltrate with no detectable atelectasis or volume loss. The patient received treatment for pneumonia with vancomycin ceftriaxone and Zithromax during previous hospitalization. inflammatory indices remain elevated. Chest x-ray raised a question of cavitary lesion in the left upper lobe. Chest CT without contrast ordered for today. will start patient on Zosyn and Zithromax IV as previous antibiotic regimen did not cover anaerobes. Patient's history is not suggestive of aspiration. No exposure to TB. Will continue with IV heparin at this point as he may need bronchoscopy if left upper lobe infiltrate persists. The case was discussed with patient's hospitalist. 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 The patient stated that he just recently stopped smoking over the last couple weeks. Patient is currently on 4 L per nasal cannula at this time. nicotine patch PRN. (7) Benign prostatic hyperplasia: Code(s): N40.0 - Benign prostatic hyperplasia without lower urinary tract symptoms Status: Acute Assessment and Plan: Continue with home medications. NO evidence of urainry obstruction. (8) Hypertension: Code(s): I10 - Essential (primary) hypertension Status: Chronic Assessment and Plan: P.r.n. hydralazine hold lisinopril and Lasix for today. (9) Hyperlipidemia: Code(s): E78.5 - Hyperlipidemia, unspecified Status: Acute Assessment and Plan: Continue with home medication. Atorvastatin Subjective Date/time seen: 02/06/21 09:03 Patient has had no new respiratory symptoms. Stated he is feeling a little better this a.m. Denied having fever chills hemoptysis chest pain or choking on food. He remains on supplemental oxygen 4 liters/minute. Review of Systems Review of Systems: Patient has had chronic shortness of breath on exertion, chronic cough with minimal sputum production. He has no wheezing. He has had a chronic chest wall pain for which he has been taking Advil p.r.n.. Patient has had orthopnea. He denied having nausea vomiting diarrhea constipation or abdominal pain. Patient had lower extremity edema in the past. Patient also has a history of abdominal aortic aneurysm for which he has had frequent testing to monitor size of aneurysm. Exam Narrative: GENERAL APPEARANCE: Well developed, well nourished,
[2021-02-06 09:13] LABS: Creatine Kinase 92 U/L (55-170)
[2021-02-06] MEDS: UMECLIDINIUM/VILANTEROL 62.5-25 MCG ELLIPTA 1 PUFF INHALATION (09:18)
--- NOTE | 2021-02-06 13:07 | PM.IMPN ---
Progress Note: A&P Assessment and Plan (1) Acute kidney injury: Code(s): N17.9 - Acute kidney failure, unspecified Status: Acute Assessment and Plan: Acute non oliguric kidney injury. Patient made 650 ccs of urine overnight. Likely prerenal versus ATN and due to overdiuresis. We are replacing IVF with gentle hydration. May be related to side effect of antibiotic. Creatinine normal 2 days prior at the time of discharge. Check urine electrolytes. He was discharged recently 2 days ago with a creatinine of 0.6. At the time he was tolerating diuresis with furosemide with a stable kidney function. Renal ultrasound did not reveal any morphologic abnormalities. Fena 2.8% suggests ATN. FEurea 42% suggests intrinsic renal disease. (2) Pulmonary embolism: Onset Date: ~01/2021 Qualifiers: Chronicity: acute Code(s): I26.99 - Other pulmonary embolism without acute cor pulmonale Status: Acute Assessment and Plan: Currently on IV heparin drip. Monitor PTT. (3) Acute respiratory failure with hypoxia: Code(s): J96.01 - Acute respiratory failure with hypoxia Status: Acute Assessment and Plan: Patient recently discharged on home oxygen after his recent diagnosis of acute pulmonary embolism, COPD/emphysema. Chest Xray and chest Ct performed today suggest pneumonmia. Started on zosyn, azithromycine and linezolid. Id was consulted. Continue with aggressive nebulizer treatment and oxygen supplementation. The patient stated that he cannot lie flat and he typically has is head up on a pillow at home. Due to CLAU we are holding off from diuresis. Chest pain managed with acetaminophen and hydrocodone. Cough managed with guaifenesin/codeine. (4) Chronic obstructive pulmonary disease: Code(s): J44.9 - Chronic obstructive pulmonary disease, unspecified Status: Acute Assessment and Plan: Aggressive nebulization and oxygen supplementation to keep saturation above 90. Continue umeclidinum, albuterol and ipratropium. Currently saturating 96% on oxygen 5 liters nasal canula. (5) Community acquired pneumonia: Code(s): J18.9 - Pneumonia, unspecified organism Status: Acute Assessment and Plan: The patient had been on levofloxacin which could cause some nephrotoxicity. The patient had already completed a round of azithromycin Rocephin during his stay here. wbcs are trending down. No fever. Chest Xray:diffuse increased left pulmonary infiltrate and interval right lower lung infiltrate since 02/03/2021, greatest in the left upper lobe, with possible developing cavitation. Start zosyn, azithromycin and linezolid. (6) Oxygen dependent: Code(s): Z99.81 - Dependence on supplemental oxygen Status: Chronic Assessment and Plan: The patient has a history of COPD for many years. Patient is oxygen dependent at home. The patient stated that he just recently stopped smoking over the last couple weeks. Patient is currently on 5 L per nasal cannula at this time. nicotine patch PRN. (7) Benign prostatic hyperplasia: Code(s): N40.0 - Benign prostatic hyperplasia without lower urinary tract symptoms Status: Acute Assessment and Plan: Continue with home medications. No evidence of urainry obstruction. (8) Hypertension: Code(s): I10 - Essential (primary) hypertension Status: Chronic Assessment and Plan: P.r.n. hydralazine hold lisinopril and Lasix for today. (9) Hyperlipidemia: Code(s): E78.5 - Hyperlipidemia, unspecified Status: Acute Assessment and Plan: Continue with home medication. Atorvastatin Subjective Date/time seen: 02/06/21 08:30 S : Patient was examined at the bedside. He complains of shortness of breath. Review of Systems Review of Systems: All systems reviewed & are unremarkable except as noted in HPI and below Constitutional: Constitutional: Reports as per HPI,
[2021-02-06 17:01] LABS: Creatine Kinase 88 U/L (55-170)
[2021-02-06] MEDS: LINEZOLID 600 MG/300 ML 600 MG/300 ML SOLN 300 MG IVPB (18:20)
[2021-02-06] MEDS: ATORVASTATIN 10 MG TABLET PO (20:09)
[2021-02-06] MEDS: MELATONIN 3 MG TABLET PO (20:09)
[2021-02-07] VITALS (25 sets, daily range): BP systolic 123–149; BP diastolic 59–72; PULSE 70–101; RESP 18–28; TEMP 35.7–36.7; O2SAT 91–96
[2021-02-07] MEDS: guaiFENesin/CODEINE (*CRX) 200/20 MG 10 ML SYRUP PO ×2 (01:36→20:26)
[2021-02-07] MEDS: HEPARIN SOD/D5W 100 UNITS/ML 25,000 UNITS/250 ML BAG 13 UNITS IV CONT ×2 (01:37→20:25)
[2021-02-07] MEDS: IPRATROPIUM BR 0.02% INH SOLN 0.5 MG/2.5 ML VIAL INHALATION ×4 (02:11→20:53)
[2021-02-07 05:10] LABS: Basophils Absolute Auto 0.1 K/mm3 (0.0-0.1); Basophils Percent Auto 0.6 % (0.2-1.2); Eosinophils Absolute Auto 0.4 K/mm3 (0-0.3); Eosinophils Percent Auto 2.7 % (0-4.4); Hematocrit 32.6 % (42.0-52.0); Hemoglobin 9.8 g/dL (14.0-18.0); Immature Granulocyte Absolute 0.64 K/mm3 (0.00-0.031); Immature Granulocyte Percent A 4.3 % (0-0.5); Lymphocytes Absolute Auto 1.61 K/mm3 (0.9-3.2); Lymphocytes Percent Auto 10.7 % (18.3-44.2); Mean Corpuscular HGB Conc 30.1 g/dl (32-36); Mean Corpuscular Volume 99.7 fl (80-100); Mean Platelet Volume 9.6 fl (7.4-10.4); Monocytes Absolute Auto 1.4 K/mm3 (0.1-0.6); Monocytes Percent Auto 9.2 % (2.6-8.5); Neutrophils Absolute Auto 10.9 K/mm3 (1.3-6.7); Neutrophils Percent Auto 72.5 % (45.5-73.1); Platelet Count Result 389 k/mm3 (150-375); Red Blood Count 3.27 M/mm3 (4.6-6.20); Red Cell Distribution Width 14.4 % (11.5-14.5)
[2021-02-07 05:22] LABS: Anion Gap 6 mmol/L (8-16); Blood Urea Nitrogen 61 mg/dL (9-20); Calcium 7.8 mg/dL (8.4-10.2); Carbon Dioxide 32 mmol/L (22-30); Chloride 100 mmol/L (98-107); Estimated CRCL calculation 13 ml/min; Estimated Glomerular Filt Rate 12; Glucose 116 mg/dL (65-110); Potassium 4.1 mmol/L (3.4-5.0); Sodium 138 mmol/L (137-145)
[2021-02-07 05:24] LABS: Partial Thromboplastin Time 89.8 SECONDS (22.3-36.8)
[2021-02-07] MEDS: LORazepam (*CRX) 1 MG TABLET PO ×3 (08:05→20:27)
[2021-02-07] MEDS: LINEZOLID 600 MG/300 ML 600 MG/300 ML SOLN 300 MG IVPB ×2 (08:08→20:26)
[2021-02-07] MEDS: UMECLIDINIUM/VILANTEROL 62.5-25 MCG ELLIPTA 1 PUFF INHALATION (08:14)
[2021-02-07] MEDS: FUROSEMIDE INJ 40 MG/4 ML VIAL IV PUSH ×2 (08:18→17:15)
[2021-02-07] MEDS: LEVALBUTEROL NEB 1.25 MG/3 ML 2.5 MG INHALATION (08:24)
[2021-02-07] MEDS: BENZONATATE 100 MG CAPSULE 200 MG PO ×3 (08:47→17:14)
--- NOTE | 2021-02-07 09:25 | PM.PNPUL ---
Progress Note: A&P Assessment and Plan (1) Acute kidney injury: Code(s): N17.9 - Acute kidney failure, unspecified Status: Acute Assessment and Plan: Urinary output 1000 ml over the last 24 hours. Creatinine essentially unchanged. Lasix IV given for positive I/Os (2) Pulmonary embolism: Onset Date: ~01/2021 Qualifiers: Chronicity: acute Code(s): I26.99 - Other pulmonary embolism without acute cor pulmonale Status: Acute Assessment and Plan: Patient has been hemodynamically stable. At this point we will continue with IV heparin. Monitor PTT. (3) Acute respiratory failure with hypoxia: Code(s): J96.01 - Acute respiratory failure with hypoxia Status: Acute Assessment and Plan: Respiratory failure initially hypercapnic and hypoxemic related to underlying COPD and pulmonary embolism. Continue with supplemental oxygen at current flow. (4) Chronic obstructive pulmonary disease: Code(s): J44.9 - Chronic obstructive pulmonary disease, unspecified Status: Acute Assessment and Plan: Probable advanced COPD, based on chest CT findings and presence of hypercapnia on admission. No PFTs are available. Will continue with nebulized short-acting bronchodilators. No wheezing on physical exam. (5) Community acquired pneumonia: Code(s): J18.9 - Pneumonia, unspecified organism Status: Acute Assessment and Plan: Respiratory status seems essentially unchanged. Oxygen increased to 4 liters/minutes probably due to fluid overload. Today's chest x-ray showed unchanged left infiltrate and possibly decrease in size of left pleural effusion. In view of increased oxygen need, we are going to hold bronchoscopy at this point. Lasix was administer IV for possible fluid overload load which could account for the worsening gas exchange. WBC trending down as is platelet count. We will continue with the same antibiotic regimen. Monitor gas exchange, continue with IV heparin drip, monitor PTT and I/O, resume diet, await sputum studies. 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 The patient stated that he just recently stopped smoking over the last couple weeks. Patient is currently on 4 L per nasal cannula at this time. nicotine patch PRN. (7) Benign prostatic hyperplasia: Code(s): N40.0 - Benign prostatic hyperplasia without lower urinary tract symptoms Status: Acute Assessment and Plan: Continue with home medications. NO evidence of urainry obstruction. (8) Hypertension: Code(s): I10 - Essential (primary) hypertension Status: Chronic Assessment and Plan: P.r.n. hydralazine hold lisinopril and Lasix for today. (9) Hyperlipidemia: Code(s): E78.5 - Hyperlipidemia, unspecified Status: Acute Assessment and Plan: Continue with home medication. Atorvastatin Subjective Date/time seen: 02/07/21 09:25 Patient reports some some shortness of breath this morning. He is afebrile. He has mild cough but no sputum production. He has no chest pain or night sweats. Oxygen flow increased to 5 L per minute. Review of Systems Review of Systems: All systems reviewed & are unremarkable except as noted in HPI and below Exam Narrative: GENERAL APPEARANCE: Well developed, well nourished, alert and cooperative, who appears to be in mild respiratory distress while receiving supplemental oxygen via nasal cannula at 5L/min. SKIN: Inspection of the skin reveals psoriatic plaques mostly in his lower extremities, also elbows. HEENT: Sclerae anicteric and conjunctivae pink and moist. Extraocular movements were intact and pupils were equal, round. NECK: Supple. There was no thyroid enlargement, and no tenderness, or masses were felt. CHEST: Increased AP diameter and
[2021-02-07 09:56] LABS: Alveolar/Arterial O2 Gradient 195.9 mmHg; Base Excess ABG 2.3 mEq/l (+/-2.0); Device NASAL CANNULA; Fractional Inspired Oxygen 44 %; HCO3 ABG 28.1 mEq/l (22.0-26.0); Modified Allen's Test Pass; Oxygen Content ABG 14.2 %vol (16.0-22.0); Oxyhemoglobin 90.2 % THb (90.0-100.0); PCO2 ABG 49.1 mmHg (35.0-45.0); PO2 ABG 61.9 mmHg (80.0-100.0); PO2 FiO2 Ratio Arterial Blood 1.41 %; Site Drawn RIGHT RADIAL; Total Hemoglobin 11.2 g/dL (12.0-18.0); pH ABG 7.376 (7.350-7.450)
--- NOTE | 2021-02-07 12:23 | PM.IMPN ---
Progress Note: A&P Assessment and Plan (1) Acute kidney injury: Code(s): N17.9 - Acute kidney failure, unspecified Status: Acute Assessment and Plan: Acute non oliguric kidney injury. Patient made 550 ccs of urine overnight. Likely prerenal versus ATN and due to overdiuresis. We stop IV fluids. Gentle diuresis with lasix 40 mg IV twice daily.. Renal ultrasound did not reveal any morphologic abnormalities. Fena 2.8% suggests ATN. FEurea 42% suggests intrinsic renal disease. (2) Pulmonary embolism: Onset Date: ~01/2021 Qualifiers: Chronicity: acute Code(s): I26.99 - Other pulmonary embolism without acute cor pulmonale Status: Acute Assessment and Plan: Currently on IV heparin drip. Monitor PTT. (3) Acute respiratory failure with hypoxia: Code(s): J96.01 - Acute respiratory failure with hypoxia Status: Acute Assessment and Plan: Likely related to pneumonia. Continue zosyn, azithromycine and linezolid, confirmed with ID. Continue with aggressive nebulizer treatment and oxygen supplementation. (4) Chronic obstructive pulmonary disease: Code(s): J44.9 - Chronic obstructive pulmonary disease, unspecified Status: Acute Assessment and Plan: Aggressive nebulization and oxygen supplementation to keep saturation above 90. Continue umeclidinum, albuterol and ipratropium. Currently saturating 95% on oxygen 5 liters nasal canula. (5) Community acquired pneumonia: Code(s): J18.9 - Pneumonia, unspecified organism Status: Acute Assessment and Plan: The patient had been on levofloxacin which could cause some nephrotoxicity. The patient had already completed a round of azithromycin Rocephin during his stay here. wbcs are trending down. No fever. Chest Xray:diffuse increased left pulmonary infiltrate and interval right lower lung infiltrate since 02/03/2021, greatest in the left upper lobe, with possible developing cavitation. Continue zosyn, azithromycin and linezolid. (6) Oxygen dependent: Code(s): Z99.81 - Dependence on supplemental oxygen Status: Chronic Assessment and Plan: The patient has a history of COPD for many years. Patient is oxygen dependent at home. The patient stated that he just recently stopped smoking over the last couple weeks. Patient is currently on 5 L per nasal cannula at this time. nicotine patch PRN. (7) Benign prostatic hyperplasia: Code(s): N40.0 - Benign prostatic hyperplasia without lower urinary tract symptoms Status: Acute Assessment and Plan: Continue with home medications. (8) Hypertension: Code(s): I10 - Essential (primary) hypertension Status: Chronic Assessment and Plan: current BP stable at 132/66.. (9) Hyperlipidemia: Code(s): E78.5 - Hyperlipidemia, unspecified Status: Acute Assessment and Plan: Continue with home medication. Atorvastatin Subjective Date/time seen: 02/07/21 08:00 Patient was examined at the bedside. He reports shortnes of breath. He looks acutely ill. Review of Systems Review of Systems: All systems reviewed & are unremarkable except as noted in HPI and below Constitutional: Constitutional: Reports as per HPI, Reports fatigue, Reports lethargy and Reports weakness Eyes: Eyes: Reports as per HPI and Denies blurry vision ENT: Reports system reviewed and no additional complaints, except as documented, Reports Normal hearing present and Denies dysphagia Cardiovascular: Cardiovascular: Reports no additional cardiovascular complaints, Reports chest pain, Denies diaphoresis, Denies leg edema, Denies lightheadedness, Denies palpitations, Reports dyspnea and Reports dyspnea on exertion Respiratory: Respiratory: Reports no additional respiratory complaints, Reports chest congestion, Reports cough, Reports dyspnea, Reports dyspnea on exertion and Reports wheezing Gastrointestinal: Gastr
--- NOTE | 2021-02-07 15:30 | WPDINFPN2 ---
Progress Note: A&P Assessment and Plan (1) Community acquired pneumonia: Code(s): J18.9 - Pneumonia, unspecified organism Status: Acute Assessment and Plan: CAP REC Present Rx appropriate with azithro and linezolid and PipTazo. Bronch if no improvement Subjective Date/time seen: 02/07/21 15:30 Objective Data Vital Signs Vital Signs: Vital Signs - 24 hr 02/06/21 16:00 02/06/21 16:52 02/06/21 18:00 Temperature 36.3 C L Pulse Rate 65 84 78 Respiratory Rate 20 Blood Pressure 119/66 Pulse Oximetry 94 95 02/06/21 20:00 02/06/21 21:18 02/06/21 21:26 Temperature 36.2 C L Pulse Rate 84 76 81 Respiratory Rate 22 H 20 20 Blood Pressure 126/85 Pulse Oximetry 92 95 02/06/21 21:42 02/06/21 23:25 02/06/21 23:43 Temperature 36.6 C Pulse Rate 78 82 84 Respiratory Rate 22 H 22 H Blood Pressure 138/73 Pulse Oximetry 93 93 02/07/21 01:50 02/07/21 02:11 02/07/21 02:18 Temperature Pulse Rate 82 78 80 Respiratory Rate 20 20 Blood Pressure Pulse Oximetry 02/07/21 04:00 02/07/21 06:00 02/07/21 07:52 Temperature 36.2 C L 36.2 C L Pulse Rate 70 74 82 Respiratory Rate 20 20 Blood Pressure 130/72 149/68 H Pulse Oximetry 93 93 02/07/21 08:00 02/07/21 08:14 02/07/21 08:24 Temperature Pulse Rate 75 78 83 Respiratory Rate 24 H 24 H Blood Pressure Pulse Oximetry 93 91 02/07/21 08:59 02/07/21 10:00 02/07/21 12:00 Temperature Pulse Rate 88 101 H 89 Respiratory Rate 20 Blood Pressure Pulse Oximetry 95 02/07/21 12:32 02/07/21 14:00 02/07/21 14:56 Temperature 35.7 C L Pulse Rate 98 88 89 Respiratory Rate 18 20 Blood Pressure 148/59 H Pulse Oximetry 94 96 02/07/21 15:08 Temperature Pulse Rate 92 Respiratory Rate 20 Blood Pressure Pulse Oximetry 96 Intake/Output Intake/Output: Intake & Output 09/2602/05/21 02/06/21 02/07/21 23:59 23:59 23:59 23:59 Intake Total 1420 2300 4200 2140 Output Total 600 600 850 550 Balance 820 1700 3350 1590 Meds/Results Medications: Active Medications Generic Name Dose Route Start Last Admin Trade Name Freq PRN Reason Stop Dose Admin Hydrocodone Bitart/Acetaminophen 1 tab 02/04/21 10:59 02/06/21 03:51 Hydrocodone/Acetaminophen (*Crx) 10-325 Mg Tablet PO 1 tab Q4H PRN Administration Pain Rated 7-10 Albuterol 5 mg 02/04/21 10:56 02/05/21 21:22 Albuterol Sulfate Neb 2.5 Mg/0.5 Ml Inh INHALATION 5 mg Q4HRT PRN Administration Shortness Of Breath Atorvastatin Calcium 10 mg 02/04/21 21:00 02/06/21 20:09 Atorvastatin 10 Mg Tablet PO 10 mg HS DAYANA Administration Benzonatate 200 mg 02/07/21 09:00 02/07/21 13:31 Benzonatate 100 Mg Capsule PO 200 mg TID DAYANA Administration Furosemide 40 mg 02/07/21 17:00 Furosemide Inj 40 Mg/4 Ml Vial IV PUSH BID DAYANA Guaifenesin/Codeine Phosphate 10 ml 02/05/21 14:51 02/07/21 01:36 Guaifenesin/Codeine (*Crx) 200/20 Mg 10 Ml Syrup PO 10 ml Q4H PRN Administration Cough Heparin Sodium (Porcine) 5,500 units 02/05/21 08:42 Heparin Sodium 5,000 Units/Ml Vial IV PUSH PRN PRN aPTT less than 55 seconds Heparin Sodium (Porcine) 3,000 units 02/05/21 08:42 Heparin Sodium 5,000 Units/Ml Vial IV PUSH PRN PRN aPTT 55 - 70 seconds Heparin Sodium/Dextrose 25,000 units in 250 mls @ 13 mls/hr 02/05/21 10:05 02/07/21 01:37 Heparin Sodium/D5w 100 Units/Ml IV CONT 1,300 units/hr .[id number] DAYANA 13 mls/hr Administration Protocol 1,300 UNITS/HR Piperacillin Sod/Tazobactam Sod 2.25 gm in 50 mls @ 100 mls/hr 02/06/21 10:00 02/07/21 12:08 Zosyn 2.25 Gm/D5w 50 Ml IVPB Infused Q8H DYAANA Infusion Azithromycin 250 mg/ Dextrose 250 mls @ 250 mls/hr 02/07/21 09:00 02/07/21 10:44 IVPB Infused Q24H DAYANA Infusion Linezolid 600 mg in 300 mls @ 300 mls/hr 02/06/21 11:00 02/07/21 09:08 Zyvox IVPB Infused Q12HR DAYANA
[2021-02-07] MEDS: HYDROcodone/acetaminophen (*CRX) 10-325 MG TABLET 1 TAB PO ×2 (15:45→20:27)
--- NOTE | 2021-02-07 17:38 | PC.NURSE ---
On 02/07/21, the student, Carmella ORNELAS, provided care and completed [facility] documentation [facility] this patient. I have reviewed the student's documentation and agree with the findings.
--- NOTE | 2021-02-07 18:31 | PM.PNNEP ---
Progress Note: A&P Assessment and Plan (1) Acute kidney injury: Code(s): N17.9 - Acute kidney failure, unspecified Status: Acute Assessment and Plan: 1) Acute kidney injurysecondary to ATN: Code(s): N17.9 - Acute kidney failure, unspecified Status: Acute Assessment and Plan: Acute non oliguric kidney injury. BP was 80/53, 90/45 upon re-admission per chart caused ATN. Renal ultrasound did not reveal any morphologic abnormalities. Creatinine has pleatued at 5 mg/dl. Now Cr is trending down. Cr is 4.7 mg/dl today. Recommend: stabilization of blood pressure. No more IVF or hydration given h/o CHF. 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 Patient is requiring diuretics, currently on lasix IV. Monitor I and O's, Avoid NSAIDs or nephrotoxic meds. renal will follow closely. (2) Pulmonary embolism: Code(s): I26.99 - Other pulmonary embolism without acute cor pulmonale Status: Acute Assessment and Plan: The patient is started on home dose of Eliquis. (3) Acute respiratory failure with hypoxia: Code(s): J96.01 - Acute respiratory failure with hypox Subjective Date/time seen: 02/07/21 18:31 Patient is seen and examined. Patient is doing better. He has been making good amount of urine. Interval history: General: Patient is lying in the bed comfortably not in acute distress. HEENT: Extraocular movements intact, no scleral icterus, atraumatic, normocephalic. Neck: Supple, no JVD, no thyromegaly. Lungs: Diminished air entry. No rhonchi, no wheezing. Heart: Regular rate and rhythm, S1-S2 audible Abdomen: Soft, positive bowel sounds, no rebound or rigidity, no abdominal distention. Extremities: No extremity edema. Pulses palpable in upper lower extremities. 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: Alert orient x3, no new neurological deficit Skin: No rash, dry Objective Data Vital Signs Vital Signs: Vital Signs - 24 hr 02/06/21 20:00 02/06/21 21:18 02/06/21 21:26 Temperature 36.2 C L Pulse Rate 84 76 81 Respiratory Rate 22 H 20 20 Blood Pressure 126/85 Pulse Oximetry 92 95 02/06/21 21:42 02/06/21 23:25 02/06/21 23:43 Temperature 36.6 C Pulse Rate 78 82 84 Respiratory Rate 22 H 22 H Blood Pressure 138/73 Pulse Oximetry 93 93 02/07/21 01:50 02/07/21 02:11 02/07/21 02:18 Temperature Pulse Rate 82 78 80 Respiratory Rate 20 20 Blood Pressure Pulse Oximetry 02/07/21 04:00 02/07/21 06:00 02/07/21 07:52 Temperature 36.2 C L 36.2 C L Pulse Rate 70 74 82 Respiratory Rate 20 20 Blood Pressure 130/72 149/68 H Pulse Oximetry 93 93 02/07/21 08:00 02/07/21 08:14 02/07/21 08:24 Temperature Pulse Rate 75 78 83 Respiratory Rate 24 H 24 H Blood Pressure Pulse Oximetry 93 91 02/07/21 08:59 02/07/21 10:00 02/07/21 12:00 Temperature Pulse Rate 88 101 H 89 Respiratory Rate 20 Blood Pressure Pulse Oximetry 95 02/07/21 12:32 02/07/21 14:00 02/07/21 14:56 Temperature 35.7 C L Pulse Rate 98 88 89 Respiratory Rate 18 20 Blood Pressure 148/59 H Pulse Oximetry 94 96 02/07/21 15:08 02/07/21 15:40 02/07/21 15:41 Temperature 36.2 C L Pulse Rate 92 91 Respiratory Rate 20 20 Blood Pressure 132/66 Pulse Oximetry 96 96 94 02/07/21 15:45 02/07/21 16:00 02/07/21 18:00 Temperature Pulse Rate 99 94 Respiratory Rate Blood Pressure Pulse Oximetry 95 Intake/Output Intake/Output: Intake & Output 02/04/21 02/05/21 02/06/21 02/07/21 23:59 23:59 23:59 23:59 Intake Total 1420 2300 4200 2380 Output Total 600 600 850 550 Balance 820 1700 3350 1830 Meds/Results Medications: Active Medications Generic Name Dose Route Start Last Admin Trade Name Freq PRN Reason Stop Dose Admin Hydrocodone Bitart/Acetaminophen 1 tab 02/04/21 10:59 02/07/21 15:45 Hydrocodone/Acetaminophen (*Crx) 10-325 Mg Tablet PO 1 tab Q4H PRN Administration Pain Rated 7-10 Albuterol 5 mg 02/04/21 10:56 02/05/21 21:22
[2021-02-07] MEDS: ATORVASTATIN 10 MG TABLET PO (20:26)
[2021-02-07] MEDS: MELATONIN 3 MG TABLET PO (20:27)
--- NOTE | 2021-02-07 20:34 | CONS_ITS ---
DATE OF CONSULTATION: 02/07/2021 REASON FOR CONSULTATION: Pneumonia. HISTORY OF PRESENT ILLNESS: A 75-year-old male, who smoked until 2 weeks ago. He was admitted to the hospital earlier with shortness of breath. He was treated here for pneumonia and reports he returned 1 day later, on February 03 with persistent shortness of breath and generalized weakness. He has also had some epigastric and lower abdominal pain. He has been given linezolid, azithromycin and piperacillin. Consultation requested. I was not notified until 45 minutes ago. No fever, chills, or sweats. He has minimal sputum production. No previous pneumonia and no incarceration or foreign travel. MEDICATIONS: Present medication list reviewed. HABITS: Tobacco as above. No alcohol. No illicit drugs. ALLERGIES: NONE KNOWN. PAST MEDICAL HISTORY: In addition to above, atherosclerosis with AAA, BPH, COPD, hyperlipidemia, hypertension, kidney stones, psoriasis on no systemic therapy, inguinal hernia repairs, and ORIF. FAMILY HISTORY: Lung cancer, Parkinson's, and [place]. SOCIAL HISTORY: He is . Does not work outside the home. Ten children. REVIEW OF SYSTEMS: 14-point review otherwise negative. PHYSICAL EXAMINATION: GENERAL: This is an elderly male, who appears in mild respiratory distress. VITAL SIGNS: Afebrile since re-arrival, 96% on 6 L, 92, 20, 148/59. SKIN: Ecchymoses. No rashes. Warm and dry. NODES: He has no cervical occipital adenopathy. EENT: Pupils equal and round. He has no petechiae. ORAL: Exam compromised by his face mask O2. NECK: No masses. No meningismus. LUNGS: He has rales mcfp up both lung hernandez. Diminished breath sounds. Breath sounds are vesicular. Hyperresonant to percussion. CARDIAC: Soft S1, S2. No murmur, gallop. ABDOMEN: Nondistended. No masses. Nontender. EXTREMITIES: Without clubbing, cyanosis, edema. LABORATORY DATA: Previous blood cultures, no growth. Pneumococcal and Legionella antigens earlier were nonreactive. Blood cultures not repeated. His BUN is 61, creatinine 4.7, glucose is 116. His white count 15.0, similar to previous values, hemoglobin is 9.8, platelets are 389. Differential with left shift. Blood gases reviewed. PO2 is 62. RADIOLOGY: Chest CT on 02/06, progressive infiltrates right upper lobe into the lingula, left lower lobe, some bronchiectasis suspected. Chest x-ray today, decreased left pleural effusion. No other new findings. ASSESSMENT: 1. Community-acquired pneumonia, possibly with early cavitation, though radiographs are not impressive in that regard. Usual respiratory pathogens are suspected. I doubt opportunistic organisms. I doubt mycobacteria disease or fungal disease. 2. Chronic obstructive pulmonary disease. 3. Tobacco abuse. He has now quit. 4. Acute renal failure, perhaps from previous admission. RECOMMENDATIONS: 1. Agree with present 3-drug therapy. 2. Sputum culture has been requested. He has not yet been able to cough up sputum. If this is nondiagnostic and he fails to improve, bronchoscopy would be in order. Thank you for asking me to see him. CRISTINA DEVRIES M.D. SECONDARY CONNECTOR ARMATURE SECONDARY CONNECTOR ARMATURE D I MT: Darryl
[2021-02-08] VITALS (34 sets, daily range): BP systolic 96–138; BP diastolic 45–97; PULSE 80–109; RESP 18–27; TEMP 36.1–36.9; O2SAT 92–100
[2021-02-08] MEDS: IPRATROPIUM BR 0.02% INH SOLN 0.5 MG/2.5 ML VIAL INHALATION ×4 (02:56→20:21)
[2021-02-08 05:14] LABS: Basophils Absolute Auto 0.1 K/mm3 (0.0-0.1); Basophils Percent Auto 0.6 % (0.2-1.2); Eosinophils Absolute Auto 0.4 K/mm3 (0-0.3); Eosinophils Percent Auto 2.5 % (0-4.4); Hematocrit 33.2 % (42.0-52.0); Immature Granulocyte Absolute 0.65 K/mm3 (0.00-0.031); Immature Granulocyte Percent A 3.9 % (0-0.5); Lymphocytes Absolute Auto 1.68 K/mm3 (0.9-3.2); Lymphocytes Percent Auto 10.1 % (18.3-44.2); Mean Corpuscular HGB Conc 30.1 g/dl (32-36); Mean Corpuscular Hemoglobin 29.3 pg (26-34); Mean Corpuscular Volume 97.4 fl (80-100); Monocytes Absolute Auto 1.7 K/mm3 (0.1-0.6); Monocytes Percent Auto 10.1 % (2.6-8.5); Neutrophils Absolute Auto 12.2 K/mm3 (1.3-6.7); Neutrophils Percent Auto 72.8 % (45.5-73.1); Platelet Count Result 460 k/mm3 (150-375); Red Blood Count 3.41 M/mm3 (4.6-6.20); Red Cell Distribution Width 14.5 % (11.5-14.5); White Blood Count 16.7 K/mm3 (4.5-10.0)
[2021-02-08 05:22] LABS: Partial Thromboplastin Time 66.9 SECONDS (22.3-36.8)
[2021-02-08 05:27] LABS: Anion Gap 9 mmol/L (8-16); Blood Urea Nitrogen 59 mg/dL (9-20); Calcium 8.4 mg/dL (8.4-10.2); Carbon Dioxide 34 mmol/L (22-30); Chloride 95 mmol/L (98-107); Estimated CRCL calculation 12 ml/min; Estimated Glomerular Filt Rate 11; Glucose 99 mg/dL (65-110); Potassium 3.8 mmol/L (3.4-5.0); Sodium 138 mmol/L (137-145)
[2021-02-08] MEDS: HEPARIN SODIUM 5,000 UNITS/ML VIAL 3000 UNITS IV PUSH (05:47)
--- NOTE | 2021-02-08 07:03 | PM.IMPN ---
Progress Note: A&P Assessment and Plan (1) Acute kidney injury: Code(s): N17.9 - Acute kidney failure, unspecified Status: Acute Assessment and Plan: Acute non oliguric kidney injury. Patient made close to 2.4 L urine overnight with IV lasix. Likely prerenal versus ATN and due to overdiuresis. Continue gentle diuresis with lasix 40 mg IV twice daily.. Renal ultrasound did not reveal any morphologic abnormalities. Fena 2.8% suggests ATN. FEurea 42% suggests intrinsic renal disease. (2) Pulmonary embolism: Onset Date: ~01/2021 Qualifiers: Chronicity: acute Code(s): I26.99 - Other pulmonary embolism without acute cor pulmonale Status: Acute Assessment and Plan: Continue IV heparin drip. Monitor PTT. Hold heparin at 0800 tomorrow in anticipation for possible bronchoscopy. (3) Acute respiratory failure with hypoxia: Code(s): J96.01 - Acute respiratory failure with hypoxia Status: Acute Assessment and Plan: Likely related to aspiration pneumonia and complicated with acute COPD exacerbation and congestive heart failure. Continue zosyn, azithromycine and linezolid, confirmed with ID. Continue with aggressive nebulizer treatment and oxygen supplementation. (4) Chronic obstructive pulmonary disease: Code(s): J44.9 - Chronic obstructive pulmonary disease, unspecified Status: Acute Assessment and Plan: Patient with diffuse left lung whezing today. We aer starting solumedrol 40 mg IV q 8 hrs, then taper. Continue aggressive nebulization and oxygen supplementation to keep saturation above 90. Continue umeclidinum, albuterol and ipratropium. Currently saturating 95% on oxygen 5 liters nasal canula. (5) Community acquired pneumonia: Code(s): J18.9 - Pneumonia, unspecified organism Status: Acute Assessment and Plan: The patient had been on levofloxacin. The patient had already completed a round of azithromycin Rocephin during his stay here. wbcs have trended down initially , now plateauing. No fever. Chest Xray: . Opacities throughout the left lung consistent with pneumonia superimposed over emphysema. Small left pleural effusion likely decrease in size since the prior study. More subtle opacities in the right mid and lower lung zones which could represent either additional pneumonia or atelectasis on 02/07/2021, greatest in the left upper lobe, with possible developing cavitation. Likely chronic indolent pneumonia. Check histoplasma, legionella, TB less likely. Continue zosyn, azithromycin and linezolid. (6) Oxygen dependent: Code(s): Z99.81 - Dependence on supplemental oxygen Status: Chronic Assessment and Plan: The patient has a history of COPD for many years. Patient is newly oxygen dependent at home. The patient stated that he just recently stopped smoking over the last couple weeks. Patient is currently on 5 L per nasal cannula at this time. nicotine patch PRN. (7) Benign prostatic hyperplasia: Code(s): N40.0 - Benign prostatic hyperplasia without lower urinary tract symptoms Status: Acute Assessment and Plan: Continue with home medications. (8) Hypertension: Code(s): I10 - Essential (primary) hypertension Status: Chronic Assessment and Plan: current BP stable at 129/77. Continue furosemide. Hold lisinopril in the setting of CLAU. (9) Hyperlipidemia: Code(s): E78.5 - Hyperlipidemia, unspecified Status: Acute Assessment and Plan: Continue with home medication. Atorvastatin (10) Anemia: Code(s): D64.9 - Anemia, unspecified Status: Acute Assessment and Plan: Normochromic , normocytic anemia. Baseline Hb 16.2 on 01/09/2021. Slow Hb drop in january. Likely anemia of chronic disease in the setting of chronic, previously indolent pneumonia . Anemia is moderate of chronic installation and well tolerate. Monitor CBC. Send iron, fe
[2021-02-08] MEDS: BENZONATATE 100 MG CAPSULE 200 MG PO ×2 (08:47→17:54)
[2021-02-08] MEDS: FUROSEMIDE INJ 40 MG/4 ML VIAL IV PUSH ×2 (08:47→17:54)
[2021-02-08] MEDS: SIMETHICONE 125 MG CHEW TAB PO ×4 (08:47→21:08)
[2021-02-08] MEDS: LINEZOLID 600 MG/300 ML 600 MG/300 ML SOLN 300 MG IVPB ×2 (08:56→21:05)
--- NOTE | 2021-02-08 09:10 | PM.PNPUL ---
Progress Note: A&P Assessment and Plan (1) Acute kidney injury: Code(s): N17.9 - Acute kidney failure, unspecified Status: Acute Assessment and Plan: Urinary output greater than 2 L over the last 24 hours. Creatinine essentially unchanged. (2) Pulmonary embolism: Onset Date: ~01/2021 Qualifiers: Chronicity: acute Code(s): I26.99 - Other pulmonary embolism without acute cor pulmonale Status: Acute Assessment and Plan: Patient has been hemodynamically stable. At this point we will continue with IV heparin. Monitor PTT. (3) Acute respiratory failure with hypoxia: Code(s): J96.01 - Acute respiratory failure with hypoxia Status: Acute Assessment and Plan: Respiratory failure initially hypercapnic and hypoxemic related to underlying COPD and pulmonary embolism. Continue with supplemental oxygen at current flow. (4) Chronic obstructive pulmonary disease: Code(s): J44.9 - Chronic obstructive pulmonary disease, unspecified Status: Acute Assessment and Plan: Probable advanced COPD, based on chest CT findings and presence of hypercapnia on admission. No PFTs are available. Will continue with nebulized short-acting bronchodilators. No wheezing on physical exam. (5) Community acquired pneumonia: Code(s): J18.9 - Pneumonia, unspecified organism Status: Acute Assessment and Plan: Respiratory status seems essentially unchanged. patient has wheezing on physical exam which is a new finding. His still on supplemental oxygen at 5 liters/minute. . Patient has congestion but cannot cough up any phlegm. Infectious Disease consultations appreciated. Inflammatory indices essentially unchanged. Has not been able to cough up sputum for new cultures. Plan will be to do an x-ray this a.m. If there are no new findings will consider IV steroids for bronchospasms. will consider a bronchoscopy once bronchospasm clears. Case was discussed with the hospitalist. Continue IV heparin drip and monitor PTT. 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 The patient stated that he just recently stopped smoking over the last couple weeks. Patient is currently on 4 L per nasal cannula at this time. nicotine patch PRN. (7) Benign prostatic hyperplasia: Code(s): N40.0 - Benign prostatic hyperplasia without lower urinary tract symptoms Status: Acute Assessment and Plan: Continue with home medications. NO evidence of urainry obstruction. (8) Hypertension: Code(s): I10 - Essential (primary) hypertension Status: Chronic Assessment and Plan: P.r.n. hydralazine hold lisinopril and Lasix for today. (9) Hyperlipidemia: Code(s): E78.5 - Hyperlipidemia, unspecified Status: Acute Assessment and Plan: Continue with home medication. Atorvastatin Subjective Date/time seen: 02/08/21 09:10 Patient has no new respiratory symptoms, not doing any better. He continues to have a cough but not bringing up any sputum. He has no fever chills hemoptysis. Shortness of breath about unchanged. He remains on oxygen 5 liters/minute. Review of Systems Review of Systems: All systems reviewed & are unremarkable except as noted in HPI and below (H & P) Exam Narrative: GENERAL APPEARANCE: Well developed, well nourished, alert and cooperative, who appears to be in mild respiratory distress while receiving supplemental oxygen via nasal cannula at 5L/min. SKIN: Inspection of the skin reveals psoriatic plaques mostly in his lower extremities, also elbows. HEENT: Sclerae anicteric and conjunctivae pink and moist. Extraocular movements were intact and pupils were equal, round. NECK: Supple. There was no thyroid enlargement, and no tenderness, or masses were felt. CHEST: Increas
[2021-02-08] MEDS: UMECLIDINIUM/VILANTEROL 62.5-25 MCG ELLIPTA 1 PUFF INHALATION (10:16)
--- NOTE | 2021-02-08 10:44 | WPDANESEPPF ---
Anes - Initial Pre Proc Eval Procedure: Operation Date: 02/07/21 11:30 Proposed Procedures p Flexible Bronchoscopy With Lavage - Ghulam Adan MD Date/Time: 02/08/21 10:44 Surgeon: Rangel White MD Pre Op Diagnosis: CLAU Patient Data Age: 75 Gender: M Height: 1.68 m Weight: 83.2 kg Last Vital Signs Temp 98.4 F 02/08/21 07:49 Pulse 82 02/08/21 10:24 Resp 20 02/08/21 10:24 BP 129/77 02/08/21 07:49 Pulse Ox 94 02/08/21 10:18 Allergies Allergy/AdvReac Type Severity Reaction Status Date / Time No Known Allergies Allergy Verified 01/27/21 15:42 Home Medications Medication Instructions Recorded Confirmed Type atorvastatin 10 mg PO HS 10/01/19 02/03/21 History albuterol sulfate [Proventil HFA] 2 puff INHALATION Q4-5H PRN #90 g 02/02/21 02/03/21 Rx apixaban [Eliquis] 5 mg PO Q12HR #60 tablet 02/02/21 02/03/21 Rx furosemide 40 mg PO BID #60 tablet 02/02/21 02/03/21 Rx levofloxacin 750 mg PO DAILY #5 tablet 02/02/21 02/03/21 Rx lisinopril 20 mg PO QAM #30 tablet 02/02/21 02/03/21 Rx umeclidinium-vilanterol [Anoro 1 inh INHALATION DAILY #60 ea 02/02/21 02/03/21 Rx Ellipta] Laboratory Tests 02/08/21 02/08/21 02/08/21 04:58 04:58 04:58 WBC 16.7 K/mm3 H K/mm3 (4.5-10.0) RBC 3.41 M/mm3 L M/mm3 (4.6-6.20) Hgb 10.0 g/dL L g/dL (14.0-18.0) Hct 33.2 % L % (42.0-52.0) MCV 97.4 fl fl (80-100) MCH 29.3 pg pg (26-34) MCHC 30.1 g/dl L g/dl (32-36) RDW 14.5 % % (11.5-14.5) Plt Count 460 k/mm3 H k/mm3 (150-375) MPV 10.0 fl fl (7.4-10.4) Immature Gran % (Auto) 3.9 % H % (0-0.5) Neut % (Auto) 72.8 % % (45.5-73.1) Lymph % (Auto) 10.1 % L % (18.3-44.2) [place] % (Auto) 10.1 % H % (2.6-8.5) Eos % (Auto) 2.5 % % (0-4.4) Baso % (Auto) 0.6 % % (0.2-1.2) Lymph # (Auto) 1.68 K/mm3 K/mm3 (0.9-3.2) [place] # (Auto) 1.7 K/mm3 H K/mm3 (0.1-0.6) Eos # (Auto) 0.4 K/mm3 H K/mm3 (0-0.3) Baso # (Auto) 0.1 K/mm3 K/mm3 (0.0-0.1) Abs Immat Gran (auto) 0.65 K/mm3 H K/mm3 (0.00-0.031) Absolute Neuts (auto) 12.2 K/mm3 H K/mm3 (1.3-6.7) Absolute Nucleated RBC 0.0 K/mm3 K/mm3 (0.0-0.012) Nucleated RBC % 0.0 % % (0.0-0.2) APTT 66.9 SECONDS H SECONDS (22.3-36.8) Sodium 138 mmol/L mmol/L (137-145) Potassium 3.8 mmol/L mmol/L (3.4-5.0) Chloride 95 mmol/L L mmol/L (98-107) Carbon Dioxide 34 mmol/L H mmol/L (22-30) Anion Gap 9 mmol/L mmol/L (8-16) BUN 59 mg/dL H mg/dL (9-20) Creatinine 5.00 mg/dL H mg/dL (0.7-1.3) Estim Creat Clear Calc 12 ml/min ml/min Estimated GFR 11 L (59 - ) Glucose 99 mg/dL mg/dL (65-110) Calcium 8.4 mg/dL mg/dL (8.4-10.2) Patient hx anesthesia problems: none Family hx anesthesia problems: none Results Review: All pre-operative results and documents have been reviewed as part of the pre-operative evaluation. [facility] Past Medical History Medical History (Updated 02/08/21 @ 09:29 by Kathy Eisenberg MD) Abdominal aortic aneurysm Benign prostatic hyperplasia Chronic obstructive pulmonary disease Hyperlipidemia Hypertension Kidney stones Oxygen dependent Psoriasis Tobacco dependence Surgical History Surgical History History of cataract extraction with lens replacement History of inguinal hernia repair History of lithotripsy History of open reduction and internal fixation (ORIF) procedure Right ankle fracture. Family History Family History Mother Parkinson's disease Lung cancer Sibling Acute myocardial infarction Diabetes mellitus Father Pulmonary embolism
--- NOTE | 2021-02-08 11:22 | PCDIET ---
Nutrition Follow-Up Complete: Nutrition Diagnosis: Inadequate oral intake related to poor appetite as evidenced by intake records. Nutrition Goal: Patient to consume 50% of meals/supplements or greater. Goal not met. Patient currently NPO. Spoke with patient who reports continued poor appetite. Reports he had still been taking Ensure Enlive supplements prior to NPO status. Last recorded weight is 83.2 kg. Recommend obtaining new weight. Bowel Motility: Last BM reportedly on 02/04/21. If medically appropriate, would consider medication to promote BM. Labs Reviewed: WBC (16.7), RBC (3.41), Hgb (10.0), Hct (33.2), BUN (59), Cr (5.0) Meds Noted: Lipitor, Azithromycin, Lasix, Atrovent, Xopenex, Zyvox, Solu Medrol, Zosyn Additional Notes: No documented skin breakdown. Will follow closely. Need to consider nutrition support if no improvement in oral intake. Nutrition Monitoring and Evaluation: Follow up every 3 days.
[2021-02-08 12:31] LABS: Partial Thromboplastin Time 39.8 SECONDS (22.3-36.8)
[2021-02-08] MEDS: methylPREDNISolone SOD SUCC 40 MG VIAL IV PUSH ×2 (13:37→21:06)
[2021-02-08] MEDS: LACTATED RINGERS 1,000 ML 150 ML IV CONT (14:05)
[2021-02-08] MEDS: BENZOCAINE (*SP) 60 ML SPRAY CAN (HURRICAINE) 1 SPRAY MUCOUS MEM (14:19)
[2021-02-08 14:25] LABS: INR 1.2; Prothrombin Time 14.7 Seconds (11.1-14.7)
--- NOTE | 2021-02-08 14:52 | SUR.OPER ---
bronchoscopy: Pt had Lidocaine 14ml,Normal Saline 125ml in. Pt had 50ml output in bronchial washings.
--- NOTE | 2021-02-08 15:18 | PC.NURSE ---
On 02/08/21, the student, [Ira Ribeiro], provided care and completed [facility] documentation on this patient. I have reviewed the student's documentation and agree with the findings.
[2021-02-08] MEDS: HEPARIN SODIUM 5,000 UNITS/ML VIAL 5000 UNITS IV PUSH (17:54)
[2021-02-08] MEDS: HEPARIN SOD/D5W 100 UNITS/ML 25,000 UNITS/250 ML BAG 14 UNITS IV CONT (21:05)
[2021-02-08] MEDS: guaiFENesin/CODEINE (*CRX) 200/20 MG 10 ML SYRUP PO (21:06)
[2021-02-08] MEDS: HYDROcodone/acetaminophen (*CRX) 10-325 MG TABLET 1 TAB PO (21:07)
[2021-02-08] MEDS: ATORVASTATIN 10 MG TABLET PO (21:07)
[2021-02-08] MEDS: MELATONIN 3 MG TABLET PO (21:07)
[2021-02-08] MEDS: LORazepam (*CRX) 1 MG TABLET PO (21:08)
[2021-02-09] VITALS (23 sets, daily range): BP systolic 102–128; BP diastolic 52–65; PULSE 64–92; RESP 16–26; TEMP 36.1–36.6; O2SAT 90–97
[2021-02-09 01:07] LABS: Partial Thromboplastin Time 94.6 SECONDS (22.3-36.8)
[2021-02-09] MEDS: IPRATROPIUM BR 0.02% INH SOLN 0.5 MG/2.5 ML VIAL INHALATION ×4 (02:49→21:44)
[2021-02-09] MEDS: guaiFENesin/CODEINE (*CRX) 200/20 MG 10 ML SYRUP PO ×2 (03:02→20:51)
[2021-02-09] MEDS: methylPREDNISolone SOD SUCC 40 MG VIAL IV PUSH (05:32)
[2021-02-09 07:38] LABS: Basophils Percent Auto 0.2 % (0.2-1.2); Hematocrit 34.5 % (42.0-52.0); Hemoglobin 10.3 g/dL (14.0-18.0); Immature Granulocyte Absolute 0.35 K/mm3 (0.00-0.031); Immature Granulocyte Percent A 2.6 % (0-0.5); Lymphocytes Absolute Auto 0.94 K/mm3 (0.9-3.2); Mean Corpuscular HGB Conc 29.9 g/dl (32-36); Mean Corpuscular Hemoglobin 29.9 pg (26-34); Mean Platelet Volume 9.9 fl (7.4-10.4); Monocytes Absolute Auto 0.2 K/mm3 (0.1-0.6); Monocytes Percent Auto 1.2 % (2.6-8.5); Platelet Count Result 433 k/mm3 (150-375); Red Blood Count 3.45 M/mm3 (4.6-6.20); Red Cell Distribution Width 14.2 % (11.5-14.5); White Blood Count 13.5 K/mm3 (4.5-10.0)
[2021-02-09 07:46] LABS: Partial Thromboplastin Time 88.7 SECONDS (22.3-36.8)
[2021-02-09 07:55] LABS: Anion Gap 10 mmol/L (8-16); Blood Urea Nitrogen 66 mg/dL (9-20); Calcium 8.1 mg/dL (8.4-10.2); Carbon Dioxide 33 mmol/L (22-30); Chloride 93 mmol/L (98-107); Estimated CRCL calculation 13 ml/min; Estimated Glomerular Filt Rate 12; Glucose 135 mg/dL (65-110); Potassium 4.2 mmol/L (3.4-5.0); Sodium 136 mmol/L (137-145)
[2021-02-09 08:30] LABS: Platelet Estimate Adequate (Adequate)
[2021-02-09 08:31] LABS: Anisocytosis 1+ (NORMAL); Hypochromasia 1+ (NORMAL)
[2021-02-09] MEDS: LINEZOLID 600 MG/300 ML 600 MG/300 ML SOLN 300 MG IVPB ×2 (09:09→20:49)
[2021-02-09] MEDS: BENZONATATE 100 MG CAPSULE 200 MG PO ×3 (09:10→17:04)
[2021-02-09] MEDS: SIMETHICONE 125 MG CHEW TAB PO ×4 (09:10→20:50)
[2021-02-09] MEDS: FUROSEMIDE INJ 40 MG/4 ML VIAL IV PUSH (09:10)
--- NOTE | 2021-02-09 09:53 | PM.PNPUL ---
Progress Note: A&P Assessment and Plan (1) Acute kidney injury: Code(s): N17.9 - Acute kidney failure, unspecified Status: Acute Assessment and Plan: Urinary output about 2.6 L over the last 24 hours. Creatinine essentially unchanged. (2) Pulmonary embolism: Onset Date: ~01/2021 Qualifiers: Chronicity: acute Code(s): I26.99 - Other pulmonary embolism without acute cor pulmonale Status: Acute Assessment and Plan: Patient has been hemodynamically stable. At this point we will continue with IV heparin. Monitor PTT. (3) Acute respiratory failure with hypoxia: Code(s): J96.01 - Acute respiratory failure with hypoxia Status: Acute Assessment and Plan: Respiratory failure initially hypercapnic and hypoxemic related to underlying COPD and pulmonary embolism. Continue with supplemental oxygen at current flow. (4) Chronic obstructive pulmonary disease: Code(s): J44.9 - Chronic obstructive pulmonary disease, unspecified Status: Acute Assessment and Plan: Probable advanced COPD, based on chest CT findings and presence of hypercapnia on admission. No PFTs are available. Will continue with nebulized short-acting bronchodilators. No wheezing on physical exam. (5) Community acquired pneumonia: Code(s): J18.9 - Pneumonia, unspecified organism Status: Acute Assessment and Plan: Patient underwent bronchoscopy and BAL yesterday. Bronchoscopy showed diffusely inflamed and erythematous bronchi,especially in the left upper lobe and also in left lower lobe. Large amount of thick bronchial secretions were noted in the left bronchial tree. BAL was obtained from the apical posterior segment of the left upper lobe. Cultures and other tests are pending. Respiratory status seems unchanged. He remains on 5 liters/minutes supplemental oxygen with the O2 saturation around 96% - 97%. Chest x-ray done today showed no increase in the size of left pleural effusion, probably decrease in size if anything. The left lung infiltrate essentially unchanged. The plan will be to continue with current antibiotic regimen, nebulized bronchodilators as ordered. Added nebulized Mucomyst bid. IV steroids were discontinued. Will continue with aggressive pulmonary toilet. 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 The patient stated that he just recently stopped smoking over the last couple weeks. Patient is currently on 4 L per nasal cannula at this time. nicotine patch PRN. (7) Benign prostatic hyperplasia: Code(s): N40.0 - Benign prostatic hyperplasia without lower urinary tract symptoms Status: Acute Assessment and Plan: Continue with home medications. NO evidence of urainry obstruction. (8) Hypertension: Code(s): I10 - Essential (primary) hypertension Status: Chronic Assessment and Plan: P.r.n. hydralazine hold lisinopril and Lasix for today. (9) Hyperlipidemia: Code(s): E78.5 - Hyperlipidemia, unspecified Status: Acute Assessment and Plan: Continue with home medication. Atorvastatin Subjective Date/time seen: 02/09/21 09:53 Patient without any new respiratory symptoms. He is feeling little better. Has been afebrile, still chest congestion but not able to cough up any phlegm. No wheezing. No fever chills. Remains on supplemental oxygen at 5 liters/minute. Review of Systems Review of Systems: All systems reviewed & are unremarkable except as noted in HPI and below (H & P) Exam Narrative: GENERAL APPEARANCE: Well developed, well nourished, alert and cooperative, who appears to be in mild respiratory distress while receiving supplemental oxygen via nasal cannula at 5L/min. SKIN: Inspection of the skin reveals psoriatic plaques mostly in his l
[2021-02-09] MEDS: UMECLIDINIUM/VILANTEROL 62.5-25 MCG ELLIPTA 1 PUFF INHALATION (10:12)
--- NOTE | 2021-02-09 13:26 | PM.IMPN ---
Progress Note: A&P Additional Plan START OF DOCTOR CHATO?S PROGRESS NOTE Subjective: The patient currently rates his respiratory status as a 5/100 10s his baseline. He states he is having occasional productive sputum. Overnight denies fever, rigors, nausea, vomiting, wheeze, abdominal pain chest pain, or any other concerns or complaints. I have explained to the patient his current medical condition plan of care and answered all his questions Objective: General: -Alert -No acute distress -No dyspnea -No tachypnea Heart: -Regular rate -Regular rhythm -No murmurs -No gallops -No rubs Lungs: -bilateral wheeze present -No rhonchi -No rales Abdomen: -Normal bowel sounds in all four quadrants -No rebound -No guarding -No tenderness Extremities: -2/4 pulse in all four extremities -No clubbing -No cyanosis -No edema Additional Details / Additional Findings / Exceptions / Miscellaneous: Pertinent Laboratory Results / Pertinent Radiology Results / Pertinent Diagnostic Results / Pertinent Vital Signs: Patient saturating 90% on 5 L, white blood count 13.5, hemoglobin 10.3, platelet count 433, creatinine 4.7 Assessment / Plan: Pneumonia, patient is status post bronchoscopy with pulmonology on February 08, 2021. This demonstrated left of upper lobe necrotizing pneumonia. S still 16 20 mg inhaled q.12 hours azithromycin 250 mg IV q.12 hours plus Zyvox 600 mg IV q.12 hours plus Zosyn 2.25 g IV q.8 hours plus Tessalon Perles 200 mg p.o. t.i.d. plus Xopenex q.6 hours. Appreciate post assistance of Infectious Disease and pulmonology Acute renal failure. Ultrasound unremarkable. Appreciate Nephrology evaluate the patient. One creatinine intermittently. IV nor sensory 5 mL/hour COPD. Patient is not O2 dependent. Solu-Medrol 60 mg IV q.8 hours post Anoro Ellipta 62.5/25 mc inhalation daily plus Xopenex q.6 hours plus Tessalon Perles 200 mg p.o. t.i.d. Pulmonary embolism. Heparin drip per protocol BPH Hyperlipidemia. Lipitor 10 mg p.o. q.h.s. Hypertension History nephrolithiasis Psoriasis Abdominal aortic aneurysm. Outpatient monitoring with his primary care physician Thrombocytosis. Will monitor platelet count intermittently Anemia. Will monitor hemoglobin level intermittently. Check serum ferritin, iron panel, fecal occult blood Microscopic hematuria. Outpatient follow-up with Urology especially given his smoking history Grade 1 diastolic dysfunction Flatulence. Simethicone 125 mg p.o. q.i.d. Tobacco abuse. Patient counseled regarding smoking cessation GI prophylaxis. Protonix 40 mg p.o. daily Usually prophylaxis. Heparin drip per protocol Disposition: END OF DOCTOR CHATO?S PROGRESS NOTE Subjective Date/time seen: 02/09/21 13:26 Objective Data Vital Signs Vital Signs: Vital Signs - 24 hr 02/08/21 13:50 02/08/21 13:58 02/08/21 14:13 Temperature 97.4 F L Pulse Rate 91 89 91 Respiratory Rate 20 20 20 Blood Pressure 131/66 Pulse Oximetry 96 02/08/21 14:55 02/08/21 15:05 02/08/21 15:15 Temperature 97.6 F 97.6 F 97.6 F Pulse Rate 109 H 108 H 106 H Respiratory Rate 22 H 25 H 26 H Blood Pressure 110/55 L 96/53 L 103/45 L Pulse Oximetry 100 95 95 02/08/21 15:25 02/08/21 15:35 02/08/21 15:45 Temperature 97.8 F Pulse Rate 102 H 103 H 100 Respiratory Rate 24 H 27 H 23 H Blood Pressure 109/48 L 118/88 107/54 L Pulse Oximetry 94 93 94 02/08/21 15:55 02/08/21 16:00 02/08/21 18:00 Temperature 97.6 F Pulse Rate 100 100 94 Respiratory Rate 21 H 20 Blood Pressure 114/54 L 137/77 Pulse Oximetry 93 93 02/08/21 19:47 02/08/21 20:00 02/08/21 20:25 Temperature 97.8 F Pulse Rate 93 97 92 Respiratory Rate 18 20 20 Blood Pressure 132/72 Pulse Oximetry 92 94 94 02/08/21 20:37 02/08/21 22:00 02/08/21 23:15 Temperature 97.8 F Pulse Rate 93 90 84 Respiratory Rate 20 22 H Blood Pressure 119/
--- NOTE | 2021-02-09 13:41 | PCDIET ---
Nutrition Follow-Up Complete: Nutrition Diagnosis: Inadequate oral intake related to poor appetite as evidenced by intake records. Nutrition Goal: Patient to consume 50% of meals/supplements or greater. Goal not met, though patient did consume 90% of dinner last night after diet advanced. Currently on heart healthy diet with Ensure Enlive (350kcal, 20g protein) TID. Last recorded weight is 83.2 kg. Recommend obtaining new weight. Bowel Motility: Documented liquid stool on 02/08/21. Labs Reviewed: WBC (13.5), RBC (3.45), Hgb (10.3), Hct (34.5), Glu (135), BUN (66), Cr (4.7), Na (136) Meds Noted: [place], Lipitor, Azithromycin, Atrovent, Xopenex, Zyvox, Solu Medrol, Protonix, Zosyn, Anoro Additional Notes: No open sores documented. Will continue to monitor with same goal. Nutrition Monitoring and Evaluation: Follow up every 3 days.
[2021-02-09] MEDS: methylPREDNISolone SOD SUCC 125 MG VIAL 60 MG IV PUSH (13:47)
[2021-02-09] MEDS: LORazepam (*CRX) 1 MG TABLET PO ×2 (13:47→20:50)
[2021-02-09 14:42] LABS: Iron 73 ug/dL (49-181)
[2021-02-09 14:52] LABS: Percent Iron Saturation 42 % (20-50)
[2021-02-09] MEDS: HEPARIN SOD/D5W 100 UNITS/ML 25,000 UNITS/250 ML BAG 14 UNITS IV CONT (15:02)
--- NOTE | 2021-02-09 17:20 | PM.PNNEP ---
Progress Note: A&P Assessment and Plan (1) Acute kidney injury: Code(s): N17.9 - Acute kidney failure, unspecified Status: Acute Assessment and Plan: Assessment and Plan (1) Acute kidney injury: Code(s): N17.9 - Acute kidney failure, unspecified Status: Acute Assessment and Plan: 1) Acute kidney injury secondary to ATN: Code(s): N17.9 - Acute kidney failure, unspecified Status: Acute Assessment and Plan: Acute non oliguric kidney injury. BP was 80/53, 90/45 upon re-admission per chart caused ATN. Renal ultrasound did not reveal any morphologic abnormalities. Creatinine has pleatued at 5 mg/dl. Now Cr is trending down. Cr is 4.7 mg/dl today. Recommend: stabilization of blood pressure. No more IVF or hydration given h/o CHF. 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 Recommend to hold lasix for now. Apparently, patient euvolemic. Monitor I and O's, Avoid NSAIDs or nephrotoxic meds. renal will follow closely. (2) Pulmonary embolism: Code(s): I26.99 - Other pulmonary embolism without acute cor pulmonale Status: Acute Assessment and Plan: The patient is started on home dose of Eliquis. (3) Acute respiratory failure with hypoxia: Code(s): J96.01 - Acute respiratory failure with hypox renal service will continue to follow. Subjective Date/time seen: 02/09/21 17:20 Patient is seen and examined. Patient is lying in the bed comfortably. No chest pain or shortness of breath patient gets short of breath with minimal exertion. No lower extremity edema. No acute events overnight. Interval history: General: Patient is lying in the bed comfortably not in acute distress. HEENT: Extraocular movements intact, no scleral icterus, atraumatic, normocephalic. Neck: Supple, no JVD, no thyromegaly. Lungs: Diminished air entry. No rhonchi, no wheezing. Heart: Regular rate and rhythm, S1-S2 audible Abdomen: Soft, positive bowel sounds, no rebound or rigidity, no abdominal distention. Extremities: No extremity edema. Pulses palpable in upper lower extremities. WIREWORKER: Alert orient x3, no new neurological deficit Skin: No rash, dry Objective Data Vital Signs Vital Signs: Vital Signs - 24 hr 02/08/21 18:00 02/08/21 19:47 02/08/21 20:00 Temperature 36.6 C Pulse Rate 94 93 97 Respiratory Rate 18 20 Blood Pressure 132/72 Pulse Oximetry 92 94 02/08/21 20:25 02/08/21 20:37 02/08/21 22:00 Temperature Pulse Rate 92 93 90 Respiratory Rate 20 20 Blood Pressure Pulse Oximetry 94 94 02/08/21 23:15 02/09/21 02:00 02/09/21 02:50 Temperature 36.6 C Pulse Rate 84 82 71 Respiratory Rate 22 H 18 Blood Pressure 119/61 Pulse Oximetry 96 02/09/21 02:55 02/09/21 04:00 02/09/21 05:50 Temperature 36.2 C L Pulse Rate 83 72 64 Respiratory Rate 18 22 H Blood Pressure 128/65 Pulse Oximetry 97 02/09/21 08:00 02/09/21 08:54 02/09/21 10:00 Temperature 36.3 C L Pulse Rate 66 77 68 Respiratory Rate 24 H Blood Pressure 123/63 Pulse Oximetry 94 96 02/09/21 10:06 02/09/21 10:24 02/09/21 12:00 Temperature Pulse Rate 82 85 89 Respiratory Rate 16 16 Blood Pressure Pulse Oximetry 90 94 02/09/21 13:18 02/09/21 14:00 02/09/21 15:12 Temperature 36.3 C L Pulse Rate 92 85 80 Respiratory Rate 22 H 18 Blood Pressure 114/52 L Pulse Oximetry 95 02/09/21 15:20 Temperature Pulse Rate 83 Respiratory Rate 18 Blood Pressure Pulse Oximetry Intake/Output Intake/Output: Intake & Output 02/06/21 02/07/21 02/08/21 02/09/21 23:59 23:59 23:59 23:59 Intake Total 4200 3280 1710 1580 Output Total 850 2100 2000 2175 Balance 3355 4367 -401 -989 Meds/Results Medications: Active Medications Generic Name Dose Route Start Last Admin Trade Name Freq PRN Reason Stop Dose Admin Hydrocodone Bitart/Acetaminophen 1 tab 02/04/21 10:59 02/08/21 21:07 Hydrocodone/Acetaminophen (*Crx) 10-325 Mg Tablet PO
[2021-02-09 18:52] LABS: Aspergillus fumigatus (m3) IgG 13.9 mcg/mL (<2.0)
[2021-02-09] MEDS: SODIUM CHLORIDE 0.9% IV 1,000 ML 75 ML IV CONT (19:00)
--- NOTE | 2021-02-09 19:52 | WPDINFPN2 ---
Progress Note: A&P Additional Plan 1. Community-acquired pneumonia with right upper lobe infiltrate with possible early cavitation. Status post bronchoscopy. Workup in progress including BAL culture for routine bacteria and fungus. Histoplasma antigens pending. Urine for Legionella antigen and strep pneumoniae antigen is negative. Patient is currently on Zosyn, azithromycin and linezolid. Will stop azithromycin today and continue Zosyn with linezolid. 2. Chronic obstructive pulmonary lung disease. Respiratory status is stable at this point. 3. Acute renal failure creatinine slightly improved from 5-4.5. Antibiotics dose adjusted as per pharmacy. 4. Date of service 02/09/2021. Subjective Date/time seen: 02/09/21 19:52 Exam Neck: Neck: normal visual inspection Lymphatic: no lymphadenopathy noted Resp: Other: Slightly tachypneic on examination. Scattered rhonchi on right side of the lung. Cardio: Rate: regular rate Rhythm: regular rhythm Heart sounds: S1 normal heart sound present and S2 normal heart sound present GI: Inspection: normal to inspection GI Palp: No abdominal tenderness, No Abdominal aortic bruit present, No Soft to palpation, No Firmness to palpation present (GI), No Tenderness to palpation present (GI), No Guarding due to palpation present (GI), No Rigid due to palpation, No No hepatosplenomegaly present, No Hepatosplenomegaly present, No Hepatomegaly present, No Splenomegaly present, No Hernia present, No Palpable mass present, No Pulsatile mass present, No Aortic enlargement present, No Ascites present, No Carnett's sign positive, No Rebound tenderness present, No Bladder palpation abnormal and No Other GI palpation findings present Skin: Lesions: no lesions Rashes: no rashes Trauma: no lacerations or abrasions Neuro: General: oriented to person Cranial nerves: Yes CN's II-XII intact bilaterally Cognition (Neuro): normal cognition Motor exam (neuro): 5/5 motor strength present throughout Extrem: Right upper extremity: normal to inspection Left upper extremity: normal to inspection Right lower extremity: normal to inspection Left lower extremity: normal to inspection Psych: Appearance: grossly normal Mental Status: mental status grossly normal Affect: normal affect Attitude: cooperative Thought process: Normal thought process present Objective Data Vital Signs Vital Signs: Vital Signs - 24 hr 02/08/21 20:00 02/08/21 20:25 02/08/21 20:37 Temperature Pulse Rate 97 92 93 Respiratory Rate 20 20 20 Blood Pressure Pulse Oximetry 94 94 94 02/08/21 22:00 02/08/21 23:15 02/09/21 02:00 Temperature 36.6 C Pulse Rate 90 84 82 Respiratory Rate 22 H Blood Pressure 119/61 Pulse Oximetry 96 02/09/21 02:50 02/09/21 02:55 02/09/21 04:00 Temperature 36.2 C L Pulse Rate 71 83 72 Respiratory Rate 18 18 22 H Blood Pressure 128/65 Pulse Oximetry 97 02/09/21 05:50 02/09/21 08:00 02/09/21 08:54 Temperature 36.3 C L Pulse Rate 64 66 77 Respiratory Rate 24 H Blood Pressure 123/63 Pulse Oximetry 94 96 02/09/21 10:00 02/09/21 10:06 02/09/21 10:24 Temperature Pulse Rate 68 82 85 Respiratory Rate 16 16 Blood Pressure Pulse Oximetry 90 02/09/21 12:00 02/09/21 13:18 02/09/21 14:00 Temperature 36.3 C L Pulse Rate 89 92 85 Respiratory Rate 22 H Blood Pressure 114/52 L Pulse Oximetry 94 95 02/09/21 15:12 02/09/21 15:20 02/09/21 16:00 Temperature 36.1 C L Pulse Rate 80 83 81 Respiratory Rate 18 18 26 H Blood Pressure 115/53 L Pulse Oximetry 94 02/09/21 18:00 Temperature Pulse Rate 79 Respiratory Rate Blood Pressure Pulse Oximetry Intake/Output Intake/Output: Intake & Output 02/06/21 02/07/21 02/08/21 02/09/21 23:59 23:59 23:59 23:59 Intake Total 4200 3280 1710 1580 Output Total 850 2100 1999 935 Balance [phone] -[phone] -[phone] Meds/Results Medications: Active Medications Generic Name Dose Route Start La
[2021-02-09 20:10] LABS: Legionella pneumophila Ag Ur Not Detected (Not Detected)
[2021-02-09] MEDS: ATORVASTATIN 10 MG TABLET PO (20:48)
[2021-02-09] MEDS: MELATONIN 3 MG TABLET PO (20:49)
[2021-02-09] MEDS: ACETYLCYSTEINE 20% INHAL SOLN 800 MG/4 ML VIAL 200 MG INHALATION (21:45)
[2021-02-10] VITALS (20 sets, daily range): BP systolic 105–125; BP diastolic 54–83; PULSE 58–87; RESP 16–22; TEMP 36.2–37.1; O2SAT 93–99
[2021-02-10] MEDS: IPRATROPIUM BR 0.02% INH SOLN 0.5 MG/2.5 ML VIAL INHALATION ×3 (01:42→20:54)
[2021-02-10 06:09] LABS: Basophils Percent Auto 0.2 % (0.2-1.2); Hematocrit 31.9 % (42.0-52.0); Hemoglobin 9.7 g/dL (14.0-18.0); Immature Granulocyte Absolute 0.43 K/mm3 (0.00-0.031); Immature Granulocyte Percent A 2.7 % (0-0.5); Lymphocytes Absolute Auto 0.95 K/mm3 (0.9-3.2); Lymphocytes Percent Auto 5.9 % (18.3-44.2); Mean Corpuscular HGB Conc 30.4 g/dl (32-36); Mean Corpuscular Hemoglobin 29.8 pg (26-34); Mean Corpuscular Volume 97.9 fl (80-100); Mean Platelet Volume 10.4 fl (7.4-10.4); Monocytes Percent Auto 5.9 % (2.6-8.5); Neutrophils Absolute Auto 13.7 K/mm3 (1.3-6.7); Neutrophils Percent Auto 85.3 % (45.5-73.1); Platelet Count Result 416 k/mm3 (150-375); Red Blood Count 3.26 M/mm3 (4.6-6.20); Red Cell Distribution Width 14.3 % (11.5-14.5); White Blood Count 16.1 K/mm3 (4.5-10.0)
[2021-02-10 06:18] LABS: Alanine Aminotransferase 27 U/L (4-50); Albumin Level 3.1 g/dL (3.5-5.1); Alkaline Phosphatase 61 U/L (38-126); Anion Gap 8 mmol/L (8-16); Aspartate Amino Transferase 33 U/L (17-59); Bilirubin,Total 0.3 mg/dL (0.2-1.3); Blood Urea Nitrogen 70 mg/dL (9-20); Calcium 7.8 mg/dL (8.4-10.2); Carbon Dioxide 35 mmol/L (22-30); Chloride 92 mmol/L (98-107); Estimated CRCL calculation 13 ml/min; Estimated Glomerular Filt Rate 12; Glucose 152 mg/dL (65-110); Magnesium 1.9 mg/dL (1.6-2.3); Phosphorus 6.6 mg/dL (2.5-4.5); Potassium 4.1 mmol/L (3.4-5.0); Sodium 135 mmol/L (137-145)
[2021-02-10] MEDS: BENZONATATE 100 MG CAPSULE 200 MG PO ×3 (09:08→18:11)
[2021-02-10] MEDS: SIMETHICONE 125 MG CHEW TAB PO ×4 (09:09→20:55)
[2021-02-10] MEDS: PANTOPRAZOLE 40 MG TABLET PO (09:09)
--- NOTE | 2021-02-10 09:26 | PM.IMPN ---
Progress Note: A&P Additional Plan START OF DOCTOR CHATO?S PROGRESS NOTE Subjective: The patient indicates is low he feels his respiratory status has improved minimally compared encounter with MRI February 09, 2021. He states he is still coughing but it is nonproductive. He denies fever, rigors, nausea, vomiting, wheeze, chest pain, abdominal pain, or any other concerns or complaints. I have explained to the patient his current medical condition and plan of care and answered all his questions Objective: General: -Alert -No acute distress -No dyspnea -No tachypnea Heart: -Regular rate -Regular rhythm -No murmurs -No gallops -No rubs Lungs: -no wheeze -No rhonchi -No rales -distant breath sounds bilaterally Abdomen: -Normal bowel sounds in all four quadrants -No rebound -No guarding -No tenderness Extremities: -2/4 pulse in all four extremities -No clubbing -No cyanosis -No edema Additional Details / Additional Findings / Exceptions / Miscellaneous: Pertinent Laboratory Results / Pertinent Radiology Results / Pertinent Diagnostic Results / Pertinent Vital Signs: Patient saturating 99% 5 L, white blood count 16.1, hemoglobin 9.7, creatinine 4.7 Assessment / Plan: Pneumonia, patient is status post bronchoscopy with pulmonology on February 08, 2021. This demonstrated left of upper lobe necrotizing pneumonia. S still 16 20 mg inhaled q.12 hours plus Zyvox 600 mg IV q.12 hours plus Zosyn 2.25 g IV q.8 hours plus Tessalon Perles 200 mg p.o. t.i.d. plus Xopenex q.6 hours. Appreciate post assistance of Infectious Disease and pulmonology Acute renal failure. Ultrasound unremarkable. Appreciate Nephrology evaluate the patient. One creatinine intermittently. IV nor sensory 5 mL/hour COPD. Patient is not O2 dependent. Solu-Medrol 60 mg IV q.8 hours post Anoro Ellipta 62.5/25 mc inhalation daily plus Xopenex q.6 hours plus Tessalon Perles 200 mg p.o. t.i.d. Pulmonary embolism. Heparin drip per protocol BPH Hyperlipidemia. Lipitor 10 mg p.o. q.h.s. Hypertension History nephrolithiasis Psoriasis Abdominal aortic aneurysm. Outpatient monitoring with his primary care physician Thrombocytosis. Will monitor platelet count intermittently Anemia of chronic disease. Will monitor hemoglobin level intermittently. Microscopic hematuria. Outpatient follow-up with Urology especially given his smoking history Grade 1 diastolic dysfunction Flatulence. Simethicone 125 mg p.o. q.i.d. Tobacco abuse. Patient counseled regarding smoking cessation GI prophylaxis. Protonix 40 mg p.o. daily Usually prophylaxis. Heparin drip per protocol Disposition: END OF DOCTOR CHATO?S PROGRESS NOTE Subjective Date/time seen: 02/10/21 09:26 Objective Data Vital Signs Vital Signs: Vital Signs - 24 hr 02/09/21 10:00 02/09/21 10:06 02/09/21 10:24 Temperature Pulse Rate 68 82 85 Respiratory Rate 16 16 Blood Pressure Pulse Oximetry 90 02/09/21 12:00 02/09/21 13:18 02/09/21 14:00 Temperature 97.4 F L Pulse Rate 89 92 85 Respiratory Rate 22 H Blood Pressure 114/52 L Pulse Oximetry 94 95 02/09/21 15:12 02/09/21 15:20 02/09/21 16:00 Temperature 97 F L Pulse Rate 80 83 81 Respiratory Rate 18 18 26 H Blood Pressure 115/53 L Pulse Oximetry 94 02/09/21 18:00 02/09/21 20:00 02/09/21 20:37 Temperature 97.7 F Pulse Rate 79 67 67 Respiratory Rate 20 20 Blood Pressure 112/60 Pulse Oximetry 97 97 02/09/21 21:48 02/09/21 22:00 02/09/21 23:42 Temperature 97.9 F Pulse Rate 64 76 73 Respiratory Rate 18 20 16 Blood Pressure 102/56 L Pulse Oximetry 94 02/09/21 23:43 02/10/21 00:00 02/10/21 01:44 Temperature Pulse Rate 73 61 62 Respiratory Rate 16 22 H Blood Pressure Pulse Oximetry 94 02/10/21 01:51 02/10/21 02:00 02/10/21 04:00 Temperature Pulse Rate 68 62 58 L Respiratory Rate 22 H 20 Blood
[2021-02-10] MEDS: ACETYLCYSTEINE 20% INHAL SOLN 800 MG/4 ML VIAL 200 MG INHALATION ×2 (09:42→20:54)
[2021-02-10] MEDS: UMECLIDINIUM/VILANTEROL 62.5-25 MCG ELLIPTA 1 PUFF INHALATION (09:50)
[2021-02-10] MEDS: HEPARIN SOD/D5W 100 UNITS/ML 25,000 UNITS/250 ML BAG 14 UNITS IV CONT (10:15)
[2021-02-10] MEDS: LINEZOLID 600 MG/300 ML 600 MG/300 ML SOLN 300 MG IVPB ×2 (10:18→20:57)
[2021-02-10] MEDS: SODIUM CHLORIDE 0.9% IV 1,000 ML 75 ML IV CONT (10:22)
[2021-02-10] MEDS: LORazepam (*CRX) 1 MG TABLET PO ×2 (10:30→18:16)
--- NOTE | 2021-02-10 10:33 | PM.PNPUL ---
Progress Note: A&P Assessment and Plan (1) Acute kidney injury: Code(s): N17.9 - Acute kidney failure, unspecified Status: Acute Assessment and Plan: Has had a good urinary output. Creatinine essentially unchanged. (2) Pulmonary embolism: Onset Date: ~01/2021 Qualifiers: Chronicity: acute Code(s): I26.99 - Other pulmonary embolism without acute cor pulmonale Status: Acute Assessment and Plan: Patient has been hemodynamically stable. At this point we will continue with IV heparin. Monitor PTT. (3) Acute respiratory failure with hypoxia: Code(s): J96.01 - Acute respiratory failure with hypoxia Status: Acute Assessment and Plan: Respiratory failure initially hypercapnic and hypoxemic related to underlying COPD and pulmonary embolism. Continue with supplemental oxygen at current flow. (4) Chronic obstructive pulmonary disease: Code(s): J44.9 - Chronic obstructive pulmonary disease, unspecified Status: Acute Assessment and Plan: Probable advanced COPD, based on chest CT findings and presence of hypercapnia on admission. No PFTs are available. Will continue with nebulized short-acting bronchodilators. No wheezing on physical exam. (5) Community acquired pneumonia: Code(s): J18.9 - Pneumonia, unspecified organism Status: Acute Assessment and Plan: Gas exchange improved over the last 24 hours. Inflammatory indices however unchanged, although this could be steroid related. Zithromax has been discontinued. He remains on heparin IV drip. Plan continue with current antibiotic regimen, pulmonary toilet, encourage out of bed to chair. Repeat chest x-ray, preferably a two view, to better assess size of left pleural effusion and left lung infiltrate. Continue with heparin IV drip in case he will need left thoracentesis. 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 The patient stated that he just recently stopped smoking over the last couple weeks. Patient is currently on 4 L per nasal cannula at this time. nicotine patch PRN. (7) Benign prostatic hyperplasia: Code(s): N40.0 - Benign prostatic hyperplasia without lower urinary tract symptoms Status: Acute Assessment and Plan: Continue with home medications. NO evidence of urainry obstruction. (8) Hypertension: Code(s): I10 - Essential (primary) hypertension Status: Chronic Assessment and Plan: P.r.n. hydralazine hold lisinopril and Lasix for today. (9) Hyperlipidemia: Code(s): E78.5 - Hyperlipidemia, unspecified Status: Acute Assessment and Plan: Continue with home medication. Atorvastatin Subjective Date/time seen: 02/10/21 10:33 Patient has not had any new respiratory complaints. Has had a dry cough has before but no fever chest pain or wheezing. Supplemental oxygen has decreased down to 3 liters/minute. Review of Systems Review of Systems: All systems reviewed & are unremarkable except as noted in HPI and below (H & P) Exam Narrative: GENERAL APPEARANCE: Well developed, well nourished, alert and cooperative, who appears to be in mild respiratory distress while receiving supplemental oxygen via nasal cannula at 3L/min. SKIN: Inspection of the skin reveals psoriatic plaques mostly in his lower extremities, also elbows. HEENT: Sclerae anicteric and conjunctivae pink and moist. Extraocular movements were intact and pupils were equal, round. NECK: Supple. There was no thyroid enlargement, and no tenderness, or masses were felt. CHEST: Increased AP diameter and normal contour without any kyphoscoliosis. LUNGS: Few rhonchi bilaterally, slightly decreased breath sounds left base posteriorly. No wheezing. CARDIAC: There was a regular rate and rhythm without any mu
[2021-02-10] MEDS: ATORVASTATIN 10 MG TABLET PO (20:56)
[2021-02-10] MEDS: MELATONIN 3 MG TABLET PO (20:56)
[2021-02-10] MEDS: HYDROcodone/acetaminophen (*CRX) 10-325 MG TABLET 1 TAB PO (20:56)
[2021-02-10] MEDS: guaiFENesin/CODEINE (*CRX) 200/20 MG 10 ML SYRUP PO (20:57)
[2021-02-11] VITALS (23 sets, daily range): BP systolic 120–147; BP diastolic 56–77; PULSE 61–107; RESP 16–22; TEMP 35.9–36.8; O2SAT 82–98
[2021-02-11] MEDS: IPRATROPIUM BR 0.02% INH SOLN 0.5 MG/2.5 ML VIAL INHALATION ×4 (02:45→19:02)
[2021-02-11] MEDS: SODIUM CHLORIDE 0.9% IV 1,000 ML 75 ML IV CONT (02:47)
[2021-02-11] MEDS: HEPARIN SOD/D5W 100 UNITS/ML 25,000 UNITS/250 ML BAG 14 UNITS IV CONT ×2 (05:12→22:49)
[2021-02-11 05:50] LABS: Basophils Percent Auto 0.2 % (0.2-1.2); Eosinophils Absolute Auto 0.1 K/mm3 (0-0.3); Eosinophils Percent Auto 0.3 % (0-4.4); Hematocrit 33.3 % (42.0-52.0); Hemoglobin 10.2 g/dL (14.0-18.0); Immature Granulocyte Absolute 0.35 K/mm3 (0.00-0.031); Immature Granulocyte Percent A 2.4 % (0-0.5); Lymphocytes Absolute Auto 1.84 K/mm3 (0.9-3.2); Lymphocytes Percent Auto 12.6 % (18.3-44.2); Mean Corpuscular HGB Conc 30.6 g/dl (32-36); Mean Corpuscular Hemoglobin 29.6 pg (26-34); Mean Corpuscular Volume 96.5 fl (80-100); Mean Platelet Volume 9.9 fl (7.4-10.4); Monocytes Absolute Auto 1.8 K/mm3 (0.1-0.6); Monocytes Percent Auto 12.3 % (2.6-8.5); Neutrophils Absolute Auto 10.5 K/mm3 (1.3-6.7); Neutrophils Percent Auto 72.2 % (45.5-73.1); Platelet Count Result 459 k/mm3 (150-375); Red Blood Count 3.45 M/mm3 (4.6-6.20); Red Cell Distribution Width 14.6 % (11.5-14.5); White Blood Count 14.6 K/mm3 (4.5-10.0)
[2021-02-11 06:04] LABS: Anion Gap 5 mmol/L (8-16); Blood Urea Nitrogen 72 mg/dL (9-20); Carbon Dioxide 35 mmol/L (22-30); Chloride 96 mmol/L (98-107); Estimated CRCL calculation 15 ml/min; Estimated Glomerular Filt Rate 14; Glucose 100 mg/dL (65-110); Potassium 3.9 mmol/L (3.4-5.0); Sodium 136 mmol/L (137-145)
[2021-02-11 06:06] LABS: Partial Thromboplastin Time 93.2 SECONDS (22.3-36.8)
[2021-02-11] MEDS: ONDANSETRON INJ 4 MG/2 ML VIAL IV PUSH (08:23)
[2021-02-11] MEDS: PANTOPRAZOLE 40 MG TABLET PO (08:26)
[2021-02-11] MEDS: SIMETHICONE 125 MG CHEW TAB PO ×4 (08:26→20:16)
[2021-02-11] MEDS: BENZONATATE 100 MG CAPSULE 200 MG PO ×3 (08:26→17:38)
[2021-02-11] MEDS: LINEZOLID 600 MG/300 ML 600 MG/300 ML SOLN 300 MG IVPB ×2 (08:58→20:18)
[2021-02-11] MEDS: ACETYLCYSTEINE 20% INHAL SOLN 800 MG/4 ML VIAL 200 MG INHALATION (09:17)
[2021-02-11] MEDS: UMECLIDINIUM/VILANTEROL 62.5-25 MCG ELLIPTA 1 PUFF INHALATION (09:18)
--- NOTE | 2021-02-11 09:53 | PM.PNPUL ---
Progress Note: A&P Assessment and Plan (1) Acute kidney injury: Code(s): N17.9 - Acute kidney failure, unspecified Status: Acute Assessment and Plan: Has had a good urinary output. Creatinine 4.2 down from 4.7 yesterday. (2) Pulmonary embolism: Onset Date: ~01/2021 Qualifiers: Chronicity: acute Code(s): I26.99 - Other pulmonary embolism without acute cor pulmonale Status: Acute Assessment and Plan: Patient has been hemodynamically stable. At this point we will continue with IV heparin. Monitor PTT. (3) Acute respiratory failure with hypoxia: Code(s): J96.01 - Acute respiratory failure with hypoxia Status: Acute Assessment and Plan: Respiratory failure initially hypercapnic and hypoxemic related to underlying COPD and pulmonary embolism. Continue with supplemental oxygen at current flow. (4) Chronic obstructive pulmonary disease: Code(s): J44.9 - Chronic obstructive pulmonary disease, unspecified Status: Acute Assessment and Plan: Probable advanced COPD, based on chest CT findings and presence of hypercapnia on admission. No PFTs are available. Will continue with nebulized short-acting bronchodilators. No wheezing on physical exam. (5) Community acquired pneumonia: Code(s): J18.9 - Pneumonia, unspecified organism Status: Acute Assessment and Plan: Respiratory status is essentially unchanged. Chest x-ray showed unchanged Left lung infiltrate and small pleural effusion on left. Inflammatory indices also unchanged. Await BAL results. Continue with current antibiotic regimen IV heparin, pulmonary toilet, encourage out of bed to chair. 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 The patient stated that he just recently stopped smoking over the last couple weeks. Patient is currently on 4 L per nasal cannula at this time. nicotine patch PRN. (7) Benign prostatic hyperplasia: Code(s): N40.0 - Benign prostatic hyperplasia without lower urinary tract symptoms Status: Acute Assessment and Plan: Continue with home medications. NO evidence of urainry obstruction. (8) Hypertension: Code(s): I10 - Essential (primary) hypertension Status: Chronic Assessment and Plan: P.r.n. hydralazine hold lisinopril and Lasix for today. (9) Hyperlipidemia: Code(s): E78.5 - Hyperlipidemia, unspecified Status: Acute Assessment and Plan: Continue with home medication. Atorvastatin Subjective Date/time seen: 02/11/21 09:53 Patient without any new respiratory symptoms. Complained of nausea earlier today. Has had no chest pain, palpitations or hemoptysis. Remaining on 4 liters/minute supplemental oxygen. Review of Systems Review of Systems: All systems reviewed & are unremarkable except as noted in HPI and below (H & P) Exam Narrative: GENERAL APPEARANCE: Well developed, well nourished, alert and cooperative, who appears to be in mild respiratory distress while receiving supplemental oxygen via nasal cannula at 3L/min. SKIN: Inspection of the skin reveals psoriatic plaques mostly in his lower extremities, also elbows. HEENT: Sclerae anicteric and conjunctivae pink and moist. Extraocular movements were intact and pupils were equal, round. NECK: Supple. There was no thyroid enlargement, and no tenderness, or masses were felt. CHEST: Increased AP diameter and normal contour without any kyphoscoliosis. LUNGS: Few rhonchi bilaterally, slightly decreased breath sounds left base posteriorly. No wheezing. CARDIAC: There was a regular rate and rhythm without any murmurs, gallops, rubs. ABDOMEN: Soft and nontender with normal bowel sounds. There was no organomegaly. LYMPH NODES: No lymphadenopathy was appreciated in the neck, axilla
--- NOTE | 2021-02-11 10:07 | PM.IMPN ---
Progress Note: A&P Additional Plan START OF DOCTOR CHATO?S PROGRESS NOTE Subjective: The patient gets his respiratory status is virtually unchanged compared my encounter with him on February 10, 2021. He indicates that he has not a bowel movement in what he says is approximately 5 days. Overnight he denies fever, rigors, vomiting, cough, wheeze, abdominal pain, chest pain. He had an episode of nausea this morning. I have explained to the patient his current medical condition plan of care and advanced all questions Objective: General: -Alert -No acute distress -No dyspnea -No tachypnea Heart: -Regular rate -Regular rhythm -No murmurs -No gallops -No rubs Lungs: -no wheeze -No rhonchi -No rales -distant breath sounds bilaterally Abdomen: -Normal bowel sounds in all four quadrants -No rebound -No guarding -No tenderness Extremities: -2/4 pulse in all four extremities -No clubbing -No cyanosis -No edema Additional Details / Additional Findings / Exceptions / Miscellaneous: Pertinent Laboratory Results / Pertinent Radiology Results / Pertinent Diagnostic Results / Pertinent Vital Signs: Patient saturating 94% 3 L, blood pressure 147/77, white blood count 14.6, hemoglobin 10.2, platelet count 459 1000 chronic, creatinine 4.2 Assessment / Plan: Pneumonia, patient is status post bronchoscopy with pulmonology on February 08, 2021. This demonstrated left of upper lobe necrotizing pneumonia. S still 16 20 mg inhaled q.12 hours plus Zyvox 600 mg IV q.12 hours plus Zosyn 2.25 g IV q.8 hours plus Tessalon Perles 200 mg p.o. t.i.d. plus Xopenex q.6 hours. Appreciate post assistance of Infectious Disease and pulmonology Acute renal failure. Ultrasound unremarkable. Appreciate Nephrology evaluate the patient. One creatinine intermittently. IV nor sensory 5 mL/hour Hyperphosphatemia. Monitor phosphorus levels intermittently. If remains persistently elevated, I will initiate anti hyperphosphatemia occasions COPD. Patient is not O2 dependent. Anoro Ellipta 62.5/25 mc inhalation daily plus Xopenex q.6 hours plus Tessalon Perles 200 mg p.o. t.i.d. Pulmonary embolism. Heparin drip per protocol BPH Hyperlipidemia. Lipitor 10 mg p.o. q.h.s. Hypertension History nephrolithiasis Psoriasis Abdominal aortic aneurysm. Outpatient monitoring with his primary care physician Thrombocytosis. Will monitor platelet count intermittently Anemia of chronic disease. Will monitor hemoglobin level intermittently. Microscopic hematuria. Outpatient follow-up with Urology especially given his smoking history Grade 1 diastolic dysfunction Flatulence. Simethicone 125 mg p.o. q.i.d. Tobacco abuse. Patient counseled regarding smoking cessation GI prophylaxis. Protonix 40 mg p.o. daily Constipation. Colace 200 mg p.o. b.i.d. plus senna 17.2 mg p.o. b.i.d. Usually prophylaxis. Heparin drip per protocol Disposition: END OF DOCTOR CHATO?S PROGRESS NOTE Subjective Date/time seen: 02/11/21 10:07 Objective Data Vital Signs Vital Signs: Vital Signs - 24 hr 02/10/21 12:00 02/10/21 14:00 02/10/21 16:00 Temperature 97.6 F 97.7 F Pulse Rate 78 64 73 Respiratory Rate 20 20 Blood Pressure 121/54 L 111/57 L Pulse Oximetry 95 93 02/10/21 18:00 02/10/21 19:53 02/10/21 20:00 Temperature 98.7 F Pulse Rate 78 83 75 Respiratory Rate 18 18 Blood Pressure 125/57 L Pulse Oximetry 94 94 02/10/21 20:50 02/10/21 21:02 02/10/21 22:00 Temperature Pulse Rate 70 73 74 Respiratory Rate 18 18 Blood Pressure Pulse Oximetry 94 94 02/11/21 00:00 02/11/21 00:20 02/11/21 02:00 Temperature 98.3 F Pulse Rate 68 67 74 Respiratory Rate 16 16 Blood Pressure 120/73 Pulse Oximetry 91 91 02/11/21 02:45 02/11/21 02:55 02/11/21 04:00 Temperature 97.7 F Pulse Rate 79 68 79 Respiratory Rate 18 18 20 Blood Pressure 140/67 Pulse Oximetry 96
--- NOTE | 2021-02-11 11:25 | WPDINFPN2 ---
Progress Note: A&P Additional Plan 1. Community-acquired pneumonia with right upper lobe infiltrate with possible early cavitation. Status post bronchoscopy. BAL bacterial cultures are so far negative. BAL also showing fungal culture positive for yeast. Identification pending. Histoplasma antigens pending. Urine for Legionella antigen and strep pneumoniae antigen is negative. Patient is currently on Zosyn and linezolid day 6. Chest x-ray no change on the upper lobe cavitary lesion and infiltrate. Continue current care. 2. Chronic obstructive pulmonary lung disease. Respiratory status is stable at this point. 3. Acute renal failure creatinine slightly improved from 5-4.2. Antibiotics dose adjusted as per pharmacy. Subjective Date/time seen: 02/11/21 11:25 Exam HENMT: Other: Neck is supple. No oral ulceration Chest: Chest palpation & inspection: normal inspection of the chest Resp: Other: Good bilateral air entry with scattered rhonchi bilaterally on the anterior chest which is decreased from last examination. Cardio: Other: Positive S1 and positive S2. No murmur GI: Other: Positive bowel sound nontender no organomegaly. Skin: Other: Psoriatic skin lesions on the elbow and knee area no change Neuro: Other: No focal neurological deficit. Power is 5/5 on the upper and lower extremities. Extrem: Other: No edema Objective Data Vital Signs Vital Signs: Vital Signs - 24 hr 02/10/21 12:00 02/10/21 14:00 02/10/21 16:00 Temperature 36.4 C 36.5 C Pulse Rate 78 64 73 Respiratory Rate 20 20 Blood Pressure 121/54 L 111/57 L Pulse Oximetry 95 93 02/10/21 18:00 02/10/21 19:53 02/10/21 20:00 Temperature 37.1 C Pulse Rate 78 83 75 Respiratory Rate 18 18 Blood Pressure 125/57 L Pulse Oximetry 94 94 02/10/21 20:50 02/10/21 21:02 02/10/21 22:00 Temperature Pulse Rate 70 73 74 Respiratory Rate 18 18 Blood Pressure Pulse Oximetry 94 94 02/11/21 00:00 02/11/21 00:20 02/11/21 02:00 Temperature 36.8 C Pulse Rate 68 67 74 Respiratory Rate 16 16 Blood Pressure 120/73 Pulse Oximetry 91 91 02/11/21 02:45 02/11/21 02:55 02/11/21 04:00 Temperature 36.5 C Pulse Rate 79 68 79 Respiratory Rate 18 18 20 Blood Pressure 140/67 Pulse Oximetry 96 02/11/21 05:33 02/11/21 08:00 02/11/21 09:17 Temperature 35.9 C L Pulse Rate 65 86 61 Respiratory Rate 18 22 H Blood Pressure 147/77 H Pulse Oximetry 94 98 02/11/21 09:18 02/11/21 09:19 02/11/21 10:00 Temperature Pulse Rate 70 70 Respiratory Rate 20 Blood Pressure Pulse Oximetry 94 94 Intake/Output Intake/Output: Intake & Output 02/08/21 02/09/21 02/10/21 02/11/21 23:59 23:59 23:59 23:59 Intake Total 1710 1930 4500 650 Output Total 1999 3756 2964 4338 Balance -290 -170 2425 900 Meds/Results Medications: Active Medications Generic Name Dose Route Start Last Admin Trade Name Freq PRN Reason Stop Dose Admin Hydrocodone Bitart/Acetaminophen 1 tab 02/04/21 10:59 02/10/21 20:56 Hydrocodone/Acetaminophen (*Crx) 10-325 Mg Tablet PO 1 tab Q4H PRN Administration Pain Rated 7-10 Acetylcysteine 200 mg 02/09/21 20:00 02/11/21 09:17 Acetylcysteine 20% Inhal Soln 800 Mg/4 Ml Vial INHALATION 200 mg Q12HRT DAYANA Administration Albuterol 5 mg 02/04/21 10:56 02/05/21 21:22 Albuterol Sulfate Neb 2.5 Mg/0.5 Ml Inh INHALATION 5 mg Q4HRT PRN Administration Shortness Of Breath Atorvastatin Calcium 10 mg 02/04/21 21:00 02/10/21 20:56 Atorvastatin 10 Mg Tablet PO 10 mg HS DAYANA Administration Benzonatate 200 mg 02/07/21 09:00 02/11/21 08:26 Benzonatate 100 Mg Capsule PO 200 mg TID DAYANA Administration Docusate Sodium 200 mg 02/11/21 21:00 Docusate Sodium 100 Mg Capsule PO Q12HR DAYANA Guaifenesin/Codeine Phosphate 10 ml 02/05/21 14:51 02/10/21 20:57 Guaifenesin/Codeine (*Crx) 200/20 Mg 10 Ml Syrup PO 10 ml Q4H PRN Administration
[2021-02-11] MEDS: SENNOSIDES 8.6 MG TABLET 17.2 MG PO (17:38)
--- NOTE | 2021-02-11 18:29 | PM.PNNEP ---
Progress Note: A&P Assessment and Plan (1) Acute kidney injury: Code(s): N17.9 - Acute kidney failure, unspecified Status: Acute Assessment and Plan: Assessment and Plan (1) Acute kidney injury: Code(s): N17.9 - Acute kidney failure, unspecified Status: Acute Assessment and Plan: Assessment and Plan (1) Acute kidney injury: Code(s): N17.9 - Acute kidney failure, unspecified Status: Acute Assessment and Plan: 1) Acute kidney injury secondary to ATN: Code(s): N17.9 - Acute kidney failure, unspecified Status: Acute Assessment and Plan: Acute non oliguric kidney injury. BP was 80/53, 90/45 upon re-admission per chart caused ATN. Renal ultrasound did not reveal any morphologic abnormalities. Creatinine has pleatued at 5 mg/dl. Now Cr is trending down. Cr is 4.7-------> 4.2 mg/dl today. Recommend: stabilization of blood pressure. No more IVF or hydration given h/o CHF. 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 Recommend to give lasix 40 mg IV once now. Apparently, patient is slightly volume overload. Discontinued IVF stat. Monitor I and O's, Avoid NSAIDs or nephrotoxic meds. renal will follow closely. (2) Pulmonary embolism: Code(s): I26.99 - Other pulmonary embolism without acute cor pulmonale Status: Acute Assessment and Plan: The patient is started on home dose of Eliquis. (3) Acute respiratory failure with hypoxia: Code(s): J96.01 - Acute respiratory failure with hypox renal service will continue to follow. Discussed with floor nurse. Will page Dr. Bryant King MD Nephrology Subjective Date/time seen: 02/11/21 18:29 Patient is seen and examined. Patient is complaining of feeling SOB. No chest pain. He is complaining of feeling very weak and tired. Interval history: General: Patient is lying in the bed comfortably not in acute distress. HEENT: Extraocular movements intact, no scleral icterus, atraumatic, normocephalic. Neck: Supple, no JVD, no thyromegaly. Lungs: Diminished air entry. No rhonchi, bilateral wheezing. Heart: Regular rate and rhythm, S1-S2 audible Abdomen: Soft, positive bowel sounds, no rebound or rigidity, no abdominal distention. Extremities: 1+ pitting extremity edema. Pulses palpable in upper lower extremities. FLASHER ADJUSTER: Alert orient x3, no new neurological deficit Skin: No rash, dry Objective Data Vital Signs Vital Signs: Vital Signs - 24 hr 02/10/21 19:53 02/10/21 20:00 02/10/21 20:50 Temperature 37.1 C Pulse Rate 83 75 70 Pulse Rate [With Activity During Therapy Session] Respiratory Rate 18 18 18 Blood Pressure 125/57 L Pulse Oximetry 94 94 94 Pulse Oximetry [With Activity During Therapy Session] 02/10/21 21:02 02/10/21 22:00 02/11/21 00:00 Temperature Pulse Rate 73 74 68 Pulse Rate [With Activity During Therapy Session] Respiratory Rate 18 16 Blood Pressure Pulse Oximetry 94 91 Pulse Oximetry [With Activity During Therapy Session] 02/11/21 00:20 02/11/21 02:00 02/11/21 02:45 Temperature 36.8 C Pulse Rate 67 74 79 Pulse Rate [With Activity During Therapy Session] Respiratory Rate 16 18 Blood Pressure 120/73 Pulse Oximetry 91 Pulse Oximetry [With Activity During Therapy Session] 02/11/21 02:55 02/11/21 04:00 02/11/21 05:33 Temperature 36.5 C Pulse Rate 68 79 65 Pulse Rate [With Activity During Therapy Session] Respiratory Rate 18 20 Blood Pressure 140/67 Pulse Oximetry 96 Pulse Oximetry [With Activity During Therapy Session] 02/11/21 08:00 02/11/21 09:17 02/11/21 09:18 Temperature 35.9 C L Pulse Rate 86 61 70 Pulse Rate [With Activity During Therapy Session] Respiratory Rate 18 22 H 20 Blood Pressure 147/77 H Pulse Oximetry 94 98 Pulse Oximetry [With Activity During Therapy Session] 02/11/21 09:19 02/11/21 10:00 02/11/21 12:00 Temperature Pulse Rate 70 64 Pulse
[2021-02-11] MEDS: FUROSEMIDE INJ 40 MG/4 ML VIAL IV PUSH (18:45)
[2021-02-11] MEDS: guaiFENesin/CODEINE (*CRX) 200/20 MG 10 ML SYRUP PO (20:16)
[2021-02-11] MEDS: HYDROcodone/acetaminophen (*CRX) 10-325 MG TABLET 1 TAB PO (20:16)
[2021-02-11] MEDS: LORazepam (*CRX) 1 MG TABLET PO (20:17)
[2021-02-11] MEDS: DOCUSATE SODIUM 100 MG CAPSULE 200 MG PO (20:17)
[2021-02-11] MEDS: MELATONIN 3 MG TABLET PO (20:17)
[2021-02-11] MEDS: ATORVASTATIN 10 MG TABLET PO (20:17)
[2021-02-11 20:55] LABS: Immunochemical Fecal Occult Bl Positive (N)
[2021-02-11 20:56] LABS: IFOB Positive Control Positive
[2021-02-12] VITALS (13 sets, daily range): BP systolic 110–144; BP diastolic 50–70; PULSE 62–96; RESP 14–22; TEMP 36.5–36.6; O2SAT 92–98
[2021-02-12] MEDS: IPRATROPIUM BR 0.02% INH SOLN 0.5 MG/2.5 ML VIAL INHALATION ×4 (02:45→20:26)
[2021-02-12 05:00] LABS: Basophils Percent Auto 0.3 % (0.2-1.2); Eosinophils Absolute Auto 0.2 K/mm3 (0-0.3); Eosinophils Percent Auto 1.4 % (0-4.4); Hematocrit 32.2 % (42.0-52.0); Hemoglobin 9.8 g/dL (14.0-18.0); Immature Granulocyte Percent A 2.5 % (0-0.5); Lymphocytes Absolute Auto 1.94 K/mm3 (0.9-3.2); Mean Corpuscular HGB Conc 30.4 g/dl (32-36); Mean Corpuscular Hemoglobin 29.7 pg (26-34); Mean Corpuscular Volume 97.6 fl (80-100); Mean Platelet Volume 9.4 fl (7.4-10.4); Monocytes Absolute Auto 1.7 K/mm3 (0.1-0.6); Monocytes Percent Auto 14.3 % (2.6-8.5); Neutrophils Percent Auto 65.5 % (45.5-73.1); Platelet Count Result 381 k/mm3 (150-375); Red Cell Distribution Width 14.5 % (11.5-14.5); White Blood Count 12.2 K/mm3 (4.5-10.0)
[2021-02-12 05:15] LABS: Partial Thromboplastin Time 139.2 SECONDS (22.3-36.8)
[2021-02-12 05:19] LABS: Anion Gap 6 mmol/L (8-16); Blood Urea Nitrogen 65 mg/dL (9-20); Carbon Dioxide 37 mmol/L (22-30); Chloride 96 mmol/L (98-107); Estimated CRCL calculation 15 ml/min; Estimated Glomerular Filt Rate 14; Glucose 97 mg/dL (65-110); Phosphorus 5.8 mg/dL (2.5-4.5); Potassium 3.9 mmol/L (3.4-5.0); Sodium 139 mmol/L (137-145)
[2021-02-12] MEDS: LINEZOLID 600 MG/300 ML 600 MG/300 ML SOLN 300 MG IVPB ×2 (09:01→21:35)
[2021-02-12] MEDS: SIMETHICONE 125 MG CHEW TAB PO ×4 (09:02→21:35)
[2021-02-12] MEDS: PANTOPRAZOLE 40 MG TABLET PO (09:02)
[2021-02-12] MEDS: BENZONATATE 100 MG CAPSULE 200 MG PO ×3 (09:02→17:15)
--- NOTE | 2021-02-12 09:52 | PM.PNPUL ---
Progress Note: A&P Assessment and Plan (1) Acute kidney injury: Code(s): N17.9 - Acute kidney failure, unspecified Status: Acute Assessment and Plan: Has had a good urinary output. Creatinine trending down. (2) Pulmonary embolism: Onset Date: ~01/2021 Qualifiers: Chronicity: acute Code(s): I26.99 - Other pulmonary embolism without acute cor pulmonale Status: Acute Assessment and Plan: Patient has been hemodynamically stable. At this point we will continue with IV heparin. Monitor PTT. (3) Acute respiratory failure with hypoxia: Code(s): J96.01 - Acute respiratory failure with hypoxia Status: Acute Assessment and Plan: Respiratory failure initially hypercapnic and hypoxemic related to underlying COPD and pulmonary embolism. Continue with supplemental oxygen at current flow. (4) Chronic obstructive pulmonary disease: Code(s): J44.9 - Chronic obstructive pulmonary disease, unspecified Status: Acute Assessment and Plan: Probable advanced COPD, based on chest CT findings and presence of hypercapnia on admission. No PFTs are available. Will continue with nebulized short-acting bronchodilators. No wheezing on physical exam. (5) Community acquired pneumonia: Code(s): J18.9 - Pneumonia, unspecified organism Status: Acute Assessment and Plan: Respiratory status slowly improving. FiO2 down to 2.5 liters/minute. Inflammatory indices also trending down. Continue with current treatment, pulmonary toilet out of bed to chair. BAL showed Ivania albicans, AFB pending. Will consider switching patient to warfarin in a.m. if trend of improvement continues. 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 The patient stated that he just recently stopped smoking over the last couple weeks. Patient is currently on 4 L per nasal cannula at this time. nicotine patch PRN. (7) Benign prostatic hyperplasia: Code(s): N40.0 - Benign prostatic hyperplasia without lower urinary tract symptoms Status: Acute Assessment and Plan: Continue with home medications. NO evidence of urainry obstruction. (8) Hypertension: Code(s): I10 - Essential (primary) hypertension Status: Chronic Assessment and Plan: P.r.n. hydralazine hold lisinopril and Lasix for today. (9) Hyperlipidemia: Code(s): E78.5 - Hyperlipidemia, unspecified Status: Acute Assessment and Plan: Continue with home medication. Atorvastatin Subjective Date/time seen: 02/12/21 09:52 Patient is feeling better today especially following BM. Has been afebrile, with a dry cough. No wheezing. Remaining on IV heparin and IV antibiotics. FiO2 decreased down to 2.5 liters/minute. Exam Narrative: GENERAL APPEARANCE: Well developed, well nourished, alert and cooperative, who appears to be in mild respiratory distress while receiving supplemental oxygen via nasal cannula at 3L/min. SKIN: Inspection of the skin reveals psoriatic plaques mostly in his lower extremities, also elbows. HEENT: Sclerae anicteric and conjunctivae pink and moist. Extraocular movements were intact and pupils were equal, round. NECK: Supple. There was no thyroid enlargement, and no tenderness, or masses were felt. CHEST: Increased AP diameter and normal contour without any kyphoscoliosis. LUNGS: Few rhonchi bilaterally, slightly decreased breath sounds left base posteriorly. No wheezing. CARDIAC: There was a regular rate and rhythm without any murmurs, gallops, rubs. ABDOMEN: Soft and nontender with normal bowel sounds. There was no organomegaly. LYMPH NODES: No lymphadenopathy was appreciated in the neck, axillae or groin. EXTREMITIES: No cyanosis, clubbing or edema. NEUROLOGIC: Alert and oriented x 3. Cally
--- NOTE | 2021-02-12 10:01 | PM.IMPN ---
Progress Note: A&P Additional Plan START OF DOCTOR CHATO?S PROGRESS NOTE Subjective: The patient indicates that his respiratory status unchanged compared to my encounter with him on February 11, 2021. He indicates that his constipation has resolved. He denies fever, rigors, nausea, vomiting, cough, wheeze, abdominal pain, chest pain, or any other constitutional complaints. I explained to the patient his current medical condition plan of care and I have answered all his questions. The patient has expressed frustration the slow progress his medical condition Objective: General: -Alert -No acute distress -No dyspnea -No tachypnea Heart: -Regular rate -Regular rhythm -No murmurs -No gallops -No rubs Lungs: -no wheeze -No rhonchi -No rales -distant breath sounds bilaterally Abdomen: -Normal bowel sounds in all four quadrants -No rebound -No guarding -No tenderness Extremities: -2/4 pulse in all four extremities -No clubbing -No cyanosis -No edema Additional Details / Additional Findings / Exceptions / Miscellaneous: Pertinent Laboratory Results / Pertinent Radiology Results / Pertinent Diagnostic Results / Pertinent Vital Signs: Blood pressure 144/69, heart rate 87, 96% on 4 L high-flow nasal cannula, white blood count 12.2, hemoglobin 9.8 lb, platelet count [id number], creatinine 4.1, phosphorus 5.8 Assessment / Plan: Pneumonia, patient is status post bronchoscopy with pulmonology on February 08, 2021. This demonstrated left of upper lobe necrotizing pneumonia. S still 16 20 mg inhaled q.12 hours plus Zyvox 600 mg IV q.12 hours plus Zosyn 2.25 g IV q.8 hours plus Tessalon Perles 200 mg p.o. t.i.d. plus Xopenex q.6 hours. Appreciate post assistance of Infectious Disease and pulmonology Acute renal failure. Ultrasound unremarkable. Appreciate Nephrology evaluate the patient. One creatinine intermittently. IV nor sensory 5 mL/hour Hyperphosphatemia. Monitor phosphorus levels intermittently. If remains persistently elevated, I will initiate anti hyperphosphatemia occasions COPD. Patient is not O2 dependent. Anoro Ellipta 62.5/25 mc inhalation daily plus Xopenex q.6 hours plus Tessalon Perles 200 mg p.o. t.i.d. Pulmonary embolism. Heparin drip per protocol BPH Hyperlipidemia. Lipitor 10 mg p.o. q.h.s. Hypertension. Hydralazine 25 mg p.o. t.i.d. History nephrolithiasis Psoriasis Abdominal aortic aneurysm. Outpatient monitoring with his primary care physician Thrombocytosis. Will monitor platelet count intermittently Anemia of chronic disease. Will monitor hemoglobin level intermittently. Patient's fecal occult blood positive for which he will need follow-up with gastroenterology upon discharge Microscopic hematuria. Outpatient follow-up with Urology especially given his smoking history Grade 1 diastolic dysfunction Flatulence. Simethicone 125 mg p.o. q.i.d. Tobacco abuse. Patient counseled regarding smoking cessation GI prophylaxis. Protonix 40 mg p.o. daily Constipation. Colace 200 mg p.o. b.i.d. plus senna 17.2 mg p.o. b.i.d. Usually prophylaxis. Heparin drip per protocol Disposition: END OF DOCTOR CHATO?S PROGRESS NOTE Subjective Date/time seen: 02/12/21 10:01 Objective Data Vital Signs Vital Signs: Vital Signs - 24 hr 02/11/21 12:00 02/11/21 13:30 02/11/21 13:37 Temperature 97.0 F L Pulse Rate 64 66 Pulse Rate [With Activity During Therapy Session] 107 H Respiratory Rate 22 H Blood Pressure 124/56 L Pulse Oximetry 98 98 Pulse Oximetry [With Activity During Therapy Session] 89 L 02/11/21 14:00 02/11/21 14:40 02/11/21 17:27 Temperature 97.5 F L Pulse Rate 96 75 67 Pulse Rate [With Activity During Therapy Session] Respiratory Rate 18 22 H Blood Pressure 143/66 H Pulse Oximetry 98 Pulse Oximetry [With Activity During Therapy Session] 02/11/21 19:00 02/11/21 19:12 02/11/21 19:34 Temper[place]
[2021-02-12] MEDS: ACETYLCYSTEINE 20% INHAL SOLN 800 MG/4 ML VIAL 200 MG INHALATION ×2 (10:19→20:31)
[2021-02-12] MEDS: UMECLIDINIUM/VILANTEROL 62.5-25 MCG ELLIPTA 1 PUFF INHALATION (10:19)
--- NOTE | 2021-02-12 12:26 | PCDIET ---
Nutrition Follow-Up Complete: Nutrition Diagnosis: Inadequate oral intake related to poor appetite as evidenced by intake records. Nutrition Goal: Patient to consume 50% of meals/supplements or greater. Goal met. Patient consumed an average of 54% of recorded meals since 02/09/21 on heart healthy diet. Continues to drink Ensure Enlive TID. Patient sleeping soundly at time of visit and did not awaken to verbal cues. Intakes appear significantly improved, per EMR records. Last recorded weight is 89.1 kg which is increased from last review. Bowel Motility: BM x 1 today. Labs Reviewed: WBC (13.5), RBC (3.45), Hgb (10.3), Hct (34.5), Glu (135), BUN (66), Cr (4.7), Na (136), Ca (8.1) Meds Noted: [place], Lipitor, Heparin, Apresoline, Atrovent, Xopenex, Zyvox, Protonix, Zosyn, Phazyme, Anoro Additional Notes: Buttocks macerated. No other skin breakdown documented. Will continue to monitor with same goal. Nutrition Monitoring and Evaluation: Follow up every 5 days.
[2021-02-12] MEDS: hydrALAZINE HCL 25 MG TABLET PO ×2 (12:28→17:15)
[2021-02-12 13:21] LABS: Partial Thromboplastin Time 94.4 SECONDS (22.3-36.8)
--- NOTE | 2021-02-12 15:00 | PC.NURSE ---
Patient returned to room following cardiac cath. Report received from ARIEL Belcher.
--- NOTE | 2021-02-12 16:02 | PM.PNNEP ---
Progress Note: A&P Assessment and Plan (1) Acute kidney injury: Code(s): N17.9 - Acute kidney failure, unspecified Status: Acute Assessment and Plan: Acute renal failure: Differential diagnosis includes allergic interstitial nephritis, acute tubular necrosis, or actually a vasculitic process in the situation. Bronchoscopy was done but I do not see any pathology. It did have fungal growth. I will order serological studies for vasculitic panel. Hold diuretics. He has underlying COPD, quite a bit of wheezing and diminished air entry, predominantly has pulmonary problems rather than fluid problems related to acute renal failure. Pneumoniae with possible cavitation, with underlying acute on chronic respiratory failure with hypercapnia and hypoxia Prognosis is guarded. Will follow Discussed with patient Subjective Date/time seen: 02/12/21 16:02 75-year-old acute renal failure. Is not feeling well, has shortness of breath, cough no lower extremity swelling Has left-sided pneumonia No hemoptysis No chest pain Denies fever No epistaxis No change in hearing Pertinent lab findings so far: Echo: Summary 1. Complete two-dimensional, color flow and Doppler transthoracic echocardiogram is performed. 2. Left ventricular chamber dimension is normal. 3. Left ventricular systolic function is normal, estimated at 55-60%. 4. The left ventricular diastolic function is grade I diastolic dysfunction. 5. E/e' 5 is not elevated. UA-microscopic hematuria though has a Green catheter in place Renal function not improving Ultrasound reveals unremarkable CT study of chest was done on 01/27/2021 when creatinine was 0.6-0.8 mg/dL range. He does have pulmonary embolism on anticoagulation He is in a negative fluid balance Looking at the records I do not see that vancomycin was administered at all Exam Narrative: Ill-appearing white male, short of breath at rest, seems congested, no JVD to negative, regular rate rhythm, very diminished breath sounds, history of [place] x-rayed wheeze, coarse lung sounds, soft abdomen, nontender, edema negative current vitals difficult to feel, neurologically alert oriented x3, anxious Objective Data Vital Signs Vital Signs: Vital Signs - 24 hr 02/11/21 17:27 02/11/21 19:00 02/11/21 19:12 Temperature 36.4 C L Pulse Rate 67 78 77 Respiratory Rate 22 H 20 20 Blood Pressure 143/66 H Pulse Oximetry 98 96 02/11/21 19:34 02/11/21 20:00 02/11/21 23:10 Temperature 36.4 C Pulse Rate 66 77 68 Respiratory Rate 20 20 Blood Pressure 140/71 Pulse Oximetry 97 82 L 02/12/21 02:46 02/12/21 02:53 02/12/21 08:00 Temperature 36.5 C Pulse Rate 76 62 87 Respiratory Rate 22 H 20 14 Blood Pressure 144/69 H Pulse Oximetry 94 02/12/21 10:19 02/12/21 10:21 02/12/21 10:42 Temperature Pulse Rate 82 80 Respiratory Rate 20 20 Blood Pressure Pulse Oximetry 96 02/12/21 12:29 02/12/21 14:35 02/12/21 14:49 Temperature Pulse Rate 94 86 Respiratory Rate 20 20 Blood Pressure 130/66 Pulse Oximetry Intake/Output Intake/Output: Intake & Output 02/09/21 02/10/21 02/11/21 02/12/21 23:59 23:59 23:59 23:59 Intake Total 1930 4500 2910 1120 Output Total 2675 2075 3100 3150 Balance -745 2425 -190 -1865 Meds/Results Medications: Active Medications Generic Name Dose Route Start Last Admin Trade Name Freq PRN Reason Stop Dose Admin Hydrocodone Bitart/Acetaminophen 1 tab 02/04/21 10:59 02/11/21 20:16 Hydrocodone/Acetaminophen (*Crx) 10-325 Mg Tablet PO 1 tab Q4H PRN Administration Pain Rated 7-10 Acetylcysteine 200 mg 02/09/21 20:00 02/12/21 10:19 Acetylcysteine 20% Inhal Soln 800 Mg/4 Ml Vial INHALATION 200 mg Q12HRT DAYANA Administration Albuterol 5 mg 02/04/21 10:56 02/05/21 21:22 Albuterol Sulfate Neb 2.5 Mg/0.5 Ml Inh INHALATION 5 mg Q4HRT PRN Administration Shortness Of Breath Atorvastatin Ca
[2021-02-12 17:11] LABS: Partial Thromboplastin Time 76.4 SECONDS (22.3-36.8)
[2021-02-12] MEDS: LORazepam (*CRX) 1 MG TABLET PO ×2 (17:37→21:34)
[2021-02-12] MEDS: HYDROcodone/acetaminophen (*CRX) 10-325 MG TABLET 1 TAB PO ×2 (17:37→21:34)
[2021-02-12] MEDS: HEPARIN SOD/D5W 100 UNITS/ML 25,000 UNITS/250 ML BAG 12 UNITS IV CONT (17:57)
[2021-02-12 19:16] LABS: Complement C3 106 mg/dL (88-165)
[2021-02-12 19:36] LABS: Partial Thromboplastin Time 76.7 SECONDS (22.3-36.8)
[2021-02-12] MEDS: guaiFENesin/CODEINE (*CRX) 200/20 MG 10 ML SYRUP PO (21:34)
[2021-02-12] MEDS: ATORVASTATIN 10 MG TABLET PO (21:34)
[2021-02-12] MEDS: MELATONIN 3 MG TABLET PO (21:35)
[2021-02-12 22:20] LABS: Add Urine Microscopic? YES; Appearance Urine Clear (Clear); Bilirubin Urine Negative (Negative); Blood Urine 3+ (Negative); Color Urine Straw (Yellow); Glucose Urine UA Negative (Negative); Ketones Urine Negative (Negative); Leukocyte Esterase Ur Negative LEU/UL (NEGATIVE); Mucus Urine Rare /lpf; Nitrate Urine Negative (Negative); Protein Urine Negative (Negative); RBC Urine 21-50 /hpf (0-2); Specific Grav Ur 1.011 (1.001-1.035); Squamous Epithelial Cell Urine Rare /hpf (Few); Urobilinogen Urine Negative mg/dL (<2.0); WBC Urine 16-20 /hpf (0-3)
[2021-02-13] VITALS (14 sets, daily range): BP systolic 103–151; BP diastolic 49–79; PULSE 75–88; RESP 14–22; TEMP 36.3–36.6; O2SAT 90–99
[2021-02-13] MEDS: IPRATROPIUM BR 0.02% INH SOLN 0.5 MG/2.5 ML VIAL INHALATION ×4 (02:28→20:56)
[2021-02-13 05:11] LABS: Basophils Absolute Auto 0.1 K/mm3 (0.0-0.1); Basophils Percent Auto 0.4 % (0.2-1.2); Eosinophils Absolute Auto 0.4 K/mm3 (0-0.3); Eosinophils Percent Auto 2.9 % (0-4.4); Hematocrit 32.3 % (42.0-52.0); Hemoglobin 9.8 g/dL (14.0-18.0); Immature Granulocyte Absolute 0.34 K/mm3 (0.00-0.031); Immature Granulocyte Percent A 2.7 % (0-0.5); Lymphocytes Absolute Auto 2.06 K/mm3 (0.9-3.2); Lymphocytes Percent Auto 16.7 % (18.3-44.2); Mean Corpuscular HGB Conc 30.3 g/dl (32-36); Mean Corpuscular Hemoglobin 29.8 pg (26-34); Mean Corpuscular Volume 98.2 fl (80-100); Mean Platelet Volume 9.8 fl (7.4-10.4); Monocytes Absolute Auto 1.7 K/mm3 (0.1-0.6); Monocytes Percent Auto 13.5 % (2.6-8.5); Neutrophils Absolute Auto 7.9 K/mm3 (1.3-6.7); Neutrophils Percent Auto 63.8 % (45.5-73.1); Platelet Count Result 396 k/mm3 (150-375); Red Blood Count 3.29 M/mm3 (4.6-6.20); Red Cell Distribution Width 14.7 % (11.5-14.5); White Blood Count 12.4 K/mm3 (4.5-10.0)
[2021-02-13 05:19] LABS: Partial Thromboplastin Time 69.1 SECONDS (22.3-36.8)
[2021-02-13 05:40] LABS: Anion Gap 6 mmol/L (8-16); Blood Urea Nitrogen 57 mg/dL (9-20); Calcium 7.9 mg/dL (8.4-10.2); Carbon Dioxide 37 mmol/L (22-30); Chloride 96 mmol/L (98-107); Estimated CRCL calculation 17 ml/min; Estimated Glomerular Filt Rate 16; Glucose 91 mg/dL (65-110); Phosphorus 5.1 mg/dL (2.5-4.5); Potassium 3.4 mmol/L (3.4-5.0); Sodium 139 mmol/L (137-145)
[2021-02-13] MEDS: HEPARIN SODIUM 5,000 UNITS/ML VIAL 3000 UNITS IV PUSH (06:13)
[2021-02-13] MEDS: ACETYLCYSTEINE 20% INHAL SOLN 800 MG/4 ML VIAL 200 MG INHALATION ×3 (08:44→20:57)
[2021-02-13] MEDS: hydrALAZINE HCL 25 MG TABLET PO (09:18)
[2021-02-13] MEDS: BENZONATATE 100 MG CAPSULE 200 MG PO ×3 (09:18→16:43)
[2021-02-13] MEDS: SIMETHICONE 125 MG CHEW TAB PO ×4 (09:18→21:50)
[2021-02-13] MEDS: PANTOPRAZOLE 40 MG TABLET PO (09:18)
[2021-02-13] MEDS: HYDROcodone/acetaminophen (*CRX) 10-325 MG TABLET 1 TAB PO ×2 (09:23→21:50)
[2021-02-13] MEDS: LORazepam (*CRX) 1 MG TABLET PO ×2 (09:23→18:20)
[2021-02-13] MEDS: LINEZOLID 600 MG/300 ML 600 MG/300 ML SOLN 300 MG IVPB ×2 (09:25→21:49)
--- NOTE | 2021-02-13 10:47 | PM.PNPUL ---
Progress Note: A&P Assessment and Plan (1) Acute kidney injury: Code(s): N17.9 - Acute kidney failure, unspecified Status: Acute Assessment and Plan: Has had a good urinary output. Creatinine trending down, 3.7 today. (2) Pulmonary embolism: Onset Date: ~01/2021 Qualifiers: Chronicity: acute Code(s): I26.99 - Other pulmonary embolism without acute cor pulmonale Status: Acute Assessment and Plan: Patient has been hemodynamically stable. At this point we will continue with IV heparin. Monitor PTT. (3) Acute respiratory failure with hypoxia: Code(s): J96.01 - Acute respiratory failure with hypoxia Status: Acute Assessment and Plan: Respiratory failure initially hypercapnic and hypoxemic related to underlying COPD and pulmonary embolism. Continue with supplemental oxygen at current flow. (4) Chronic obstructive pulmonary disease: Code(s): J44.9 - Chronic obstructive pulmonary disease, unspecified Status: Acute Assessment and Plan: Probable advanced COPD, based on chest CT findings and presence of hypercapnia on admission. No PFTs are available. Will continue with nebulized short-acting bronchodilators. No wheezing on physical exam. (5) Community acquired pneumonia: Code(s): J18.9 - Pneumonia, unspecified organism Status: Acute Assessment and Plan: Respiratory status slowly improving. FiO2 down to 2 liiters/minute. Inflammatory indices also trending down. Continue with current treatment, pulmonary toilet out of bed to chair. BAL showed Ivania albicans, AFB pending. I would consider switching patient to a direct oral anticoagulant, preferably apixaban and discontinue IV heparin. 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 The patient stated that he just recently stopped smoking over the last couple weeks. Patient is currently on 4 L per nasal cannula at this time. nicotine patch PRN. (7) Benign prostatic hyperplasia: Code(s): N40.0 - Benign prostatic hyperplasia without lower urinary tract symptoms Status: Acute Assessment and Plan: Continue with home medications. NO evidence of urainry obstruction. (8) Hypertension: Code(s): I10 - Essential (primary) hypertension Status: Chronic Assessment and Plan: P.r.n. hydralazine hold lisinopril and Lasix for today. (9) Hyperlipidemia: Code(s): E78.5 - Hyperlipidemia, unspecified Status: Acute Assessment and Plan: Continue with home medication. Atorvastatin Subjective Date/time seen: 02/13/21 10:47 Patient without any new respiratory symptoms, has mild cough no sputum production no wheezing. Able to get out of bed and sit in the chair this a.m.. Also complain of some nausea but no vomiting. Review of Systems Review of Systems: All systems reviewed & are unremarkable except as noted in HPI and below (H & P) Exam Narrative: GENERAL APPEARANCE: Well developed, well nourished, alert and cooperative, who appears to be in mild respiratory distress while receiving supplemental oxygen via nasal cannula at 2L/min. SKIN: Inspection of the skin reveals psoriatic plaques mostly in his lower extremities, also elbows. HEENT: Sclerae anicteric and conjunctivae pink and moist. Extraocular movements were intact and pupils were equal, round. NECK: Supple. There was no thyroid enlargement, and no tenderness, or masses were felt. CHEST: Increased AP diameter and normal contour without any kyphoscoliosis. LUNGS: Distant breath sounds bilaterally. No wheezing. CARDIAC: There was a regular rate and rhythm without any murmurs, gallops, rubs. ABDOMEN: Soft and nontender with normal bowel sounds. There was no organomegaly. LYMPH NODES: No lymphadenopathy was appreciate
--- NOTE | 2021-02-13 11:06 | PM.IMPN ---
Progress Note: A&P Additional Plan START OF DOCTOR CHATO?S PROGRESS NOTE Subjective: Patient currently rates his respiratory status is a 5/10 attends baseline. Overnight he denies fever, rigors, nausea, vomiting, cough, wheeze, abdominal pain, chest pain. He complains of dyspepsia with p.o. intake. He states that he has been having regular bowel movements. I have explained to the patient his current medical condition plan of care and I have answered all his questions Objective: General: -Alert -No acute distress -No dyspnea -No tachypnea Heart: -Regular rate -Regular rhythm -No murmurs -No gallops -No rubs Lungs: -no wheeze -No rhonchi -No rales -distant breath sounds bilaterally Abdomen: -Normal bowel sounds in all four quadrants -No rebound -No guarding -No tenderness Extremities: -2/4 pulse in all four extremities -No clubbing -No cyanosis -No edema Additional Details / Additional Findings / Exceptions / Miscellaneous: Pertinent Laboratory Results / Pertinent Radiology Results / Pertinent Diagnostic Results / Pertinent Vital Signs: Patient's history 95% 2 L, blood pressure 144/75, pulse 76, white blood cell count 12.4, hemoglobin 9.8, platelet count [id number], creatinine 3.7 Assessment / Plan: Pneumonia, patient is status post bronchoscopy with pulmonology on February 08, 2021. This demonstrated left of upper lobe necrotizing pneumonia. S still 16 20 mg inhaled q.12 hours plus Zyvox 600 mg IV q.12 hours plus Zosyn 2.25 g IV q.8 hours plus Tessalon Perles 200 mg p.o. t.i.d. plus Xopenex q.6 hours. Appreciate post assistance of Infectious Disease and pulmonology Acute renal failure. Ultrasound unremarkable. Appreciate Nephrology evaluate the patient. One creatinine intermittently. IV nor sensory 5 mL/hour Hyperphosphatemia. Monitor phosphorus levels intermittently. If remains persistently elevated, I will initiate anti hyperphosphatemia occasions COPD. Patient is not O2 dependent. Anoro Ellipta 62.5/25 mc inhalation daily plus Xopenex q.6 hours plus Tessalon Perles 200 mg p.o. t.i.d. Pulmonary embolism. Heparin drip per protocol until INR is therapeutic between level of 2 and 3. Coumadin 7.5 mg p.o. daily BPH Hyperlipidemia. Lipitor 10 mg p.o. q.h.s. Hypertension. Hydralazine 50 mg p.o. t.i.d. History nephrolithiasis Psoriasis Abdominal aortic aneurysm. Outpatient monitoring with his primary care physician Thrombocytosis. Will monitor platelet count intermittently Anemia of chronic disease. Will monitor hemoglobin level intermittently. Patient's fecal occult blood positive for which he will need follow-up with gastroenterology upon discharge Microscopic hematuria. Outpatient follow-up with Urology especially given his smoking history Grade 1 diastolic dysfunction Flatulence. Simethicone 125 mg p.o. q.i.d. Tobacco abuse. Patient counseled regarding smoking cessation GI prophylaxis. Protonix 40 mg p.o. daily Constipation. Colace 200 mg p.o. b.i.d. plus senna 17.2 mg p.o. b.i.d. Usually prophylaxis. Heparin drip per protocol until INR is therapeutic between level of 2 and 3. Coumadin 7.5 mg p.o. daily Disposition: END OF DOCTOR CHATO?S PROGRESS NOTE Subjective Date/time seen: 02/13/21 11:06 Objective Data Vital Signs Vital Signs: Vital Signs - 24 hr 02/12/21 12:29 02/12/21 14:35 02/12/21 14:49 Temperature Pulse Rate 94 86 Respiratory Rate 20 20 Blood Pressure 130/66 Pulse Oximetry 02/12/21 16:00 02/12/21 20:00 02/12/21 20:26 Temperature 97.8 F 97.9 F Pulse Rate 96 93 82 Respiratory Rate 18 22 H 20 Blood Pressure 139/70 110/50 L Pulse Oximetry 94 92 97 02/12/21 20:33 02/13/21 02:34 02/13/21 02:39 Temperature Pulse Rate 83 78 79 Respiratory Rate 20 20 20 Blood Pressure Pulse Oximetry 02/13/21 05:00 02/13/21 08:00 02/13/21 08:45 Temperature 97.9 F 97.3 F L Pulse Rate 85
[2021-02-13] MEDS: hydrALAZINE HCL 50 MG TABLET PO ×2 (12:52→16:43)
[2021-02-13 13:55] LABS: INR 1.2; Prothrombin Time 14.8 Seconds (11.1-14.7)
[2021-02-13 13:57] LABS: Partial Thromboplastin Time 92.5 SECONDS (22.3-36.8)
[2021-02-13] MEDS: HEPARIN SOD/D5W 100 UNITS/ML 25,000 UNITS/250 ML BAG 13 UNITS IV CONT (14:06)
[2021-02-13] MEDS: WARFARIN (*PBKC) 7.5 MG TABLET PO (16:43)
[2021-02-13 19:26] LABS: Partial Thromboplastin Time 93.8 SECONDS (22.3-36.8)
[2021-02-13] MEDS: guaiFENesin/CODEINE (*CRX) 200/20 MG 10 ML SYRUP PO (21:49)
[2021-02-13] MEDS: ATORVASTATIN 10 MG TABLET PO (21:50)
[2021-02-13] MEDS: MELATONIN 3 MG TABLET PO (21:50)
[2021-02-14] VITALS (13 sets, daily range): BP systolic 128–145; BP diastolic 52–61; PULSE 64–102; RESP 18–28; TEMP 36.1–36.6; O2SAT 96–99
[2021-02-14] MEDS: IPRATROPIUM BR 0.02% INH SOLN 0.5 MG/2.5 ML VIAL INHALATION ×4 (01:45→20:14)
[2021-02-14 04:22] LABS: Basophils Absolute Auto 0.1 K/mm3 (0.0-0.1); Basophils Percent Auto 0.5 % (0.2-1.2); Eosinophils Absolute Auto 0.4 K/mm3 (0-0.3); Eosinophils Percent Auto 3.3 % (0-4.4); Hematocrit 30.5 % (42.0-52.0); Hemoglobin 9.5 g/dL (14.0-18.0); Immature Granulocyte Absolute 0.25 K/mm3 (0.00-0.031); Immature Granulocyte Percent A 2.3 % (0-0.5); Lymphocytes Absolute Auto 1.82 K/mm3 (0.9-3.2); Lymphocytes Percent Auto 16.7 % (18.3-44.2); Mean Corpuscular HGB Conc 31.1 g/dl (32-36); Mean Corpuscular Hemoglobin 30.1 pg (26-34); Mean Corpuscular Volume 96.5 fl (80-100); Mean Platelet Volume 9.7 fl (7.4-10.4); Monocytes Absolute Auto 1.3 K/mm3 (0.1-0.6); Monocytes Percent Auto 11.5 % (2.6-8.5); Neutrophils Absolute Auto 7.2 K/mm3 (1.3-6.7); Neutrophils Percent Auto 65.7 % (45.5-73.1); Platelet Count Result 349 k/mm3 (150-375); Red Blood Count 3.16 M/mm3 (4.6-6.20); Red Cell Distribution Width 14.7 % (11.5-14.5); White Blood Count 10.9 K/mm3 (4.5-10.0)
[2021-02-14 04:32] LABS: INR 1.2; Prothrombin Time 14.8 Seconds (11.1-14.7)
[2021-02-14 04:33] LABS: Partial Thromboplastin Time 89.9 SECONDS (22.3-36.8)
[2021-02-14 04:37] LABS: Anion Gap 6 mmol/L (8-16); Blood Urea Nitrogen 54 mg/dL (9-20); Calcium 7.8 mg/dL (8.4-10.2); Carbon Dioxide 36 mmol/L (22-30); Chloride 96 mmol/L (98-107); Estimated CRCL calculation 18 ml/min; Estimated Glomerular Filt Rate 18; Glucose 97 mg/dL (65-110); Phosphorus 4.6 mg/dL (2.5-4.5); Potassium 3.7 mmol/L (3.4-5.0); Sodium 138 mmol/L (137-145)
[2021-02-14] MEDS: BENZONATATE 100 MG CAPSULE 200 MG PO ×3 (08:40→17:30)
[2021-02-14] MEDS: PANTOPRAZOLE 40 MG TABLET PO (08:41)
[2021-02-14] MEDS: SIMETHICONE 125 MG CHEW TAB PO ×4 (08:41→20:43)
[2021-02-14] MEDS: hydrALAZINE HCL 50 MG TABLET PO ×3 (08:41→17:30)
[2021-02-14] MEDS: LINEZOLID 600 MG/300 ML 600 MG/300 ML SOLN 300 MG IVPB ×2 (08:41→20:43)
[2021-02-14] MEDS: HEPARIN SOD/D5W 100 UNITS/ML 25,000 UNITS/250 ML BAG 13 UNITS IV CONT (09:03)
--- NOTE | 2021-02-14 09:35 | PM.IMPN ---
Progress Note: A&P Additional Plan START OF DOCTOR CHATO?S PROGRESS NOTE Subjective: The patient case has respiratory status worse compared to my encounter with him 2020. He currently rates his respiratory status is 10 attends baseline. Overnight he denies fever, rigors, nausea vomiting, cough, wheeze, abdominal pain, chest pain. I explained to the patient his current medical condition plan of care and I have entered a wonders answered all his questions Objective: General: -Alert -No acute distress -No dyspnea -No tachypnea Heart: -Regular rate -Regular rhythm -No murmurs -No gallops -No rubs Lungs: -no wheeze -No rhonchi -No rales -distant breath sounds bilaterally Abdomen: -Normal bowel sounds in all four quadrants -No rebound -No guarding -No tenderness Extremities: -2/4 pulse in all four extremities -No clubbing -No cyanosis -No edema Additional Details / Additional Findings / Exceptions / Miscellaneous: Pertinent Laboratory Results / Pertinent Radiology Results / Pertinent Diagnostic Results / Pertinent Vital Signs: Respirations 26, blood pressure 145/52, 90% 2 L, white blood count 10.9, hemoglobin 9.5, INR 1.2, creatinine 3.4 Assessment / Plan: Pneumonia, patient is status post bronchoscopy with pulmonology on February 08, 2021. This demonstrated left of upper lobe necrotizing pneumonia. S still 16 20 mg inhaled q.12 hours plus Zyvox 600 mg IV q.12 hours plus Zosyn 2.25 g IV q.8 hours plus Tessalon Perles 200 mg p.o. t.i.d. plus Xopenex q.6 hours. Appreciate post assistance of Infectious Disease and pulmonology Acute renal failure. Ultrasound unremarkable. Appreciate Nephrology evaluate the patient. One creatinine intermittently. Hyperphosphatemia. Monitor phosphorus levels intermittently. If remains persistently elevated, I will initiate anti hyperphosphatemia occasions COPD. Patient is not O2 dependent. Anoro Ellipta 62.5/25 mc inhalation daily plus Xopenex q.6 hours plus Tessalon Perles 200 mg p.o. t.i.d. Pulmonary embolism. Heparin drip per protocol until INR is therapeutic between level of 2 and 3. Coumadin 7.5 mg p.o. daily BPH Hyperlipidemia. Lipitor 10 mg p.o. q.h.s. Hypertension. Hydralazine 50 mg p.o. t.i.d. History nephrolithiasis Psoriasis Abdominal aortic aneurysm. Outpatient monitoring with his primary care physician Thrombocytosis. Will monitor platelet count intermittently Anemia of chronic disease. Will monitor hemoglobin level intermittently. Patient's fecal occult blood positive for which he will need follow-up with gastroenterology upon discharge Microscopic hematuria. Outpatient follow-up with Urology especially given his smoking history Grade 1 diastolic dysfunction Flatulence. Simethicone 125 mg p.o. q.i.d. Tobacco abuse. Patient counseled regarding smoking cessation GI prophylaxis. Protonix 40 mg p.o. daily Constipation. Colace 200 mg p.o. b.i.d. plus senna 17.2 mg p.o. b.i.d. Usually prophylaxis. Heparin drip per protocol until INR is therapeutic between level of 2 and 3. Coumadin 7.5 mg p.o. daily Disposition: END OF DOCTOR CHATO?S PROGRESS NOTE Subjective Date/time seen: 02/14/21 09:35 Objective Data Vital Signs Vital Signs: Vital Signs - 24 hr 02/13/21 12:57 02/13/21 14:45 02/13/21 14:54 Temperature 97.6 F Pulse Rate 79 86 88 Respiratory Rate 14 20 20 Blood Pressure 120/52 L Pulse Oximetry 98 02/13/21 16:00 02/13/21 20:00 02/13/21 21:01 Temperature 97.6 F 97.7 F Pulse Rate 88 87 75 Respiratory Rate 20 20 20 Blood Pressure 122/59 L 103/49 L Pulse Oximetry 98 94 02/13/21 21:20 02/13/21 23:14 02/14/21 01:45 Temperature Pulse Rate 82 87 66 Respiratory Rate 18 18 Blood Pressure Pulse Oximetry 02/14/21 01:55 02/14/21 08:00 Temperature 97.7 F Pulse Rate 64 88 Respiratory Rate 18 26 H Blood Pressure 145/52 H Pulse Oximetry 98 I
--- NOTE | 2021-02-14 09:57 | PM.PNNEP ---
Progress Note: A&P Assessment and Plan (1) Acute kidney injury: Code(s): N17.9 - Acute kidney failure, unspecified Status: Acute Assessment and Plan: Acute renal failure: Differential diagnosis includes allergic interstitial nephritis, acute tubular necrosis, or actually a vasculitic process in the situation. Bronchoscopy was done but I do not see any pathology. It did have fungal growth. I will order serological studies for vasculitic panel. Hold diuretics. He has underlying COPD, quite a bit of wheezing and diminished air entry, predominantly has pulmonary problems rather than fluid problems related to acute renal failure. Pneumoniae with cavitation, with underlying acute on chronic respiratory failure with hypercapnia and hypoxia ANCA vasculitic panel is pending. Complements C3 and C4 are normal Creatinine is trending downward, has good urinary output. Differential remains acute tubular necrosis versus allergic interstitial nephritis. Remote possibility of a nephritis. Has hematuria but he has a Green catheter in place. Difficult to know if it is of glomerular origin versus non glomerular. He is not a candidate for renal biopsy at this point. Will follow Subjective Date/time seen: 02/14/21 09:57 Does not feel that well Still somewhat short of breath with a cough Has a Green catheter in place Urinary output of 1750 Exam Narrative: Elderly, ill-looking, states not feeling well, breathing better at rest and when I last saw him, skin tag removal no pallor, no icterus, no cyanosis, Regular rate and rhythm, diminished breath sounds coarse lung sounds, soft and nontender abdomen, edema negative, alert oriented x3 Objective Data Vital Signs Vital Signs: Vital Signs - 24 hr 02/13/21 12:57 02/13/21 14:45 02/13/21 14:54 Temperature 36.4 C Pulse Rate 79 86 88 Respiratory Rate 14 20 20 Blood Pressure 120/52 L Pulse Oximetry 98 02/13/21 16:00 02/13/21 20:00 02/13/21 21:01 Temperature 36.4 C 36.5 C Pulse Rate 88 87 75 Respiratory Rate 20 20 20 Blood Pressure 122/59 L 103/49 L Pulse Oximetry 98 94 02/13/21 21:20 02/13/21 23:14 02/14/21 01:45 Temperature Pulse Rate 82 87 66 Respiratory Rate 18 18 Blood Pressure Pulse Oximetry 02/14/21 01:55 02/14/21 08:00 Temperature 36.5 C Pulse Rate 64 88 Respiratory Rate 18 26 H Blood Pressure 145/52 H Pulse Oximetry 98 Intake/Output Intake/Output: Intake & Output 02/11/21 02/12/21 02/13/21 02/14/21 23:59 23:59 23:59 23:59 Intake Total 2910 1720 2360 350 Output Total 3100 3800 2180 950 Balance -190 -2080 180 -600 Meds/Results Medications: Active Medications Generic Name Dose Route Start Last Admin Trade Name Freq PRN Reason Stop Dose Admin Hydrocodone Bitart/Acetaminophen 1 tab 02/04/21 10:59 02/13/21 21:50 Hydrocodone/Acetaminophen (*Crx) 10-325 Mg Tablet PO 1 tab Q4H PRN Administration Pain Rated 7-10 Acetylcysteine 200 mg 02/09/21 20:00 02/13/21 20:57 Acetylcysteine 20% Inhal Soln 800 Mg/4 Ml Vial INHALATION 200 mg Q12HRT DAYANA Administration Albuterol 5 mg 02/04/21 10:56 02/05/21 21:22 Albuterol Sulfate Neb 2.5 Mg/0.5 Ml Inh INHALATION 5 mg Q4HRT PRN Administration Shortness Of Breath Atorvastatin Calcium 10 mg 02/04/21 21:00 02/13/21 21:50 Atorvastatin 10 Mg Tablet PO 10 mg HS DAYANA Administration Benzonatate 200 mg 02/07/21 09:00 02/14/21 08:40 Benzonatate 100 Mg Capsule PO 200 mg TID DAYANA Administration Guaifenesin/Codeine Phosphate 10 ml 02/05/21 14:51 02/13/21 21:49 Guaifenesin/Codeine (*Crx) 200/20 Mg 10 Ml Syrup PO 10 ml Q4H PRN Administration Cough Heparin Sodium (Porcine) 5,500 units 02/05/21 08:42 Heparin Sodium 5,000 Units/Ml Vial IV PUSH PRN PRN aPTT less than 55 seconds Heparin Sodium (Porcine) 3,000 units 02/05/21 08:42 02/13/21 06:13 Heparin Sodium 5,000 Units/Ml Vial IV PUSH 3,000 u
[2021-02-14] MEDS: ACETYLCYSTEINE 20% INHAL SOLN 800 MG/4 ML VIAL 200 MG INHALATION ×2 (10:05→20:14)
[2021-02-14] MEDS: UMECLIDINIUM/VILANTEROL 62.5-25 MCG ELLIPTA 1 PUFF INHALATION (10:05)
--- NOTE | 2021-02-14 10:19 | WPDINFPN2 ---
Progress Note: A&P Additional Plan 1. Community-acquired pneumonia with right upper lobe infiltrate with possible early cavitation. Status post bronchoscopy. BAL bacterial cultures are so far without any pathogen growth. WBC almost back to normal. 2. COPD 3. ARF REC PipTazo and Linezolid #9. Convert to Augmentin 500 mg bid and Linezolid 600 mg bid once WBC back to normal. Continue oral therapy through 02/26, completing 21 days Rx. Sign off, call if Qs Subjective Date/time seen: 02/14/21 10:19 Interval history: SOB last night when tachycardic. Poor appetite Exam Narrative: afebrile Const: General: no acute distress Eyes: General: appearance normal, both eyes and all related structures Resp: Effort & Inspection: normal respiratory effort Auscultation: clear to auscultation bilaterally and diminished lung sounds Cardio: Rate: tachycardic Heart sounds: no murmurs Other: occasional ectopic GI: Inspection: non-distended GI Palp: Yes Soft to palpation and No Tenderness to palpation present (GI) Skin: General skin exam: normal color and no rashes or lesions noted Objective Data Vital Signs Vital Signs: Vital Signs - 24 hr 02/13/21 12:57 02/13/21 14:45 02/13/21 14:54 Temperature 36.4 C Pulse Rate 79 86 88 Respiratory Rate 14 20 20 Blood Pressure 120/52 L Pulse Oximetry 98 02/13/21 16:00 02/13/21 20:00 02/13/21 21:01 Temperature 36.4 C 36.5 C Pulse Rate 88 87 75 Respiratory Rate 20 20 20 Blood Pressure 122/59 L 103/49 L Pulse Oximetry 98 94 02/13/21 21:20 02/13/21 23:14 02/14/21 01:45 Temperature Pulse Rate 82 87 66 Respiratory Rate 18 18 Blood Pressure Pulse Oximetry 02/14/21 01:55 02/14/21 08:00 02/14/21 10:06 Temperature 36.5 C Pulse Rate 64 88 99 Respiratory Rate 18 26 H 18 Blood Pressure 145/52 H Pulse Oximetry 98 02/14/21 10:16 Temperature Pulse Rate 101 H Respiratory Rate 18 Blood Pressure Pulse Oximetry Intake/Output Intake/Output: Intake & Output 02/11/21 02/12/21 02/13/21 02/14/21 23:59 23:59 23:59 23:59 Intake Total 2910 1720 2360 570 Output Total 3100 3800 2180 950 Balance -190 -2080 180 -380 Meds/Results Medications: Active Medications Generic Name Dose Route Start Last Admin Trade Name Freq PRN Reason Stop Dose Admin Hydrocodone Bitart/Acetaminophen 1 tab 02/04/21 10:59 02/13/21 21:50 Hydrocodone/Acetaminophen (*Crx) 10-325 Mg Tablet PO 1 tab Q4H PRN Administration Pain Rated 7-10 Acetylcysteine 200 mg 02/09/21 20:00 02/14/21 10:05 Acetylcysteine 20% Inhal Soln 800 Mg/4 Ml Vial INHALATION 200 mg Q12HRT DAYANA Administration Albuterol 5 mg 02/04/21 10:56 02/05/21 21:22 Albuterol Sulfate Neb 2.5 Mg/0.5 Ml Inh INHALATION 5 mg Q4HRT PRN Administration Shortness Of Breath Atorvastatin Calcium 10 mg 02/04/21 21:00 02/13/21 21:50 Atorvastatin 10 Mg Tablet PO 10 mg HS DAYANA Administration Benzonatate 200 mg 02/07/21 09:00 02/14/21 08:40 Benzonatate 100 Mg Capsule PO 200 mg TID DAYANA Administration Guaifenesin/Codeine Phosphate 10 ml 02/05/21 14:51 02/13/21 21:49 Guaifenesin/Codeine (*Crx) 200/20 Mg 10 Ml Syrup PO 10 ml Q4H PRN Administration Cough Heparin Sodium (Porcine) 5,500 units 02/05/21 08:42 Heparin Sodium 5,000 Units/Ml Vial IV PUSH PRN PRN aPTT less than 55 seconds Heparin Sodium (Porcine) 3,000 units 02/05/21 08:42 02/13/21 06:13 Heparin Sodium 5,000 Units/Ml Vial IV PUSH 3,000 units PRN PRN Administration aPTT 55 - 70 seconds Hydralazine HCl 50 mg 02/13/21 13:00 02/14/21 08:41 Hydralazine Hcl 50 Mg Tablet PO 50 mg TID DAYANA Administration Heparin Sodium/Dextrose 25,000 units in 250 mls @ 13 mls/hr 02/05/21 10:05 02/14/21 09:03 Heparin Sodium/D5w 100 Units/Ml IV CONT 1,300 units/hr .[id number] DAYANA 13 mls/hr Administration Protocol 1,300 UNITS/HR Linezolid 600 mg in 300 mls @ 3
--- NOTE | 2021-02-14 10:36 | PM.PNPUL ---
Progress Note: A&P Assessment and Plan (1) Acute kidney injury: Code(s): N17.9 - Acute kidney failure, unspecified Status: Acute Assessment and Plan: Has had a good urinary output. Creatinine trending down, 3.1 today. (2) Pulmonary embolism: Onset Date: ~01/2021 Qualifiers: Chronicity: acute Code(s): I26.99 - Other pulmonary embolism without acute cor pulmonale Status: Acute Assessment and Plan: Patient has been hemodynamically stable. patient on IV heparin drip, also started on warfarin. (3) Acute respiratory failure with hypoxia: Code(s): J96.01 - Acute respiratory failure with hypoxia Status: Acute Assessment and Plan: Respiratory failure initially hypercapnic and hypoxemic related to underlying COPD and pulmonary embolism. Continue with supplemental oxygen at current flow. (4) Chronic obstructive pulmonary disease: Code(s): J44.9 - Chronic obstructive pulmonary disease, unspecified Status: Acute Assessment and Plan: Probable advanced COPD, based on chest CT findings and presence of hypercapnia on admission. No PFTs are available. Will continue with nebulized short-acting bronchodilators. No wheezing on physical exam. (5) Community acquired pneumonia: Code(s): J18.9 - Pneumonia, unspecified organism Status: Acute Assessment and Plan: Respiratory status slowly improving. FiO2 down to 2 liiters/minute. Inflammatory indices also trending down. BAL fungal stain showed no fungal elements. Chest x-ray showed partial clearing of the left lung infiltrate, no significant effusion on left. Left upper lobe cavitary infiltrate essentially unchanged. Patient had wheezing on physical exam and was complaining of shortness of breath. Will start patient on IV steroids for COPD exacerbation. continue with current antibiotic regimen for now. following completion of IV antibiotic regimen, will consider adding oral antibiotic for possible anaerobic pneumonia. 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 The patient stated that he just recently stopped smoking over the last couple weeks. Patient is currently on 4 L per nasal cannula at this time. nicotine patch PRN. (7) Benign prostatic hyperplasia: Code(s): N40.0 - Benign prostatic hyperplasia without lower urinary tract symptoms Status: Acute Assessment and Plan: Continue with home medications. NO evidence of urainry obstruction. (8) Hypertension: Code(s): I10 - Essential (primary) hypertension Status: Chronic Assessment and Plan: P.r.n. hydralazine hold lisinopril and Lasix for today. (9) Hyperlipidemia: Code(s): E78.5 - Hyperlipidemia, unspecified Status: Acute Assessment and Plan: Continue with home medication. Atorvastatin Subjective Date/time seen: 02/14/21 10:36 complaining of shortness of breath this a.m., no chest pain hemoptysis fever chills. Also nausea postprandially. Review of Systems Review of Systems: All systems reviewed & are unremarkable except as noted in HPI and below ( homeH & P) Exam Narrative: GENERAL APPEARANCE: Well developed, well nourished, alert and cooperative, who appears to be in mild respiratory distress while receiving supplemental oxygen via nasal cannula at 2L/min. SKIN: Inspection of the skin reveals psoriatic plaques mostly in his lower extremities, also elbows. HEENT: Sclerae anicteric and conjunctivae pink and moist. Extraocular movements were intact and pupils were equal, round. NECK: Supple. There was no thyroid enlargement, and no tenderness, or masses were felt. CHEST: Increased AP diameter and normal contour without any kyphoscoliosis. LUNGS: mild wheezing bilaterally. CARDIAC: There was a regular r
[2021-02-14 11:48] LABS: Glucose Point of Care 134 mg/dl (65-105)
--- NOTE | 2021-02-14 13:00 | PCOTNOTE ---
Attempted to see pt. this date for OT at 12:48, unable to see pt. this date due to pt. refusal. Pt. stated I really don't feel good. I just want some medicine or something so I can actually get some sleep.
--- NOTE | 2021-02-14 13:47 | PC.NURSE ---
On 02/14/21, the student, Donna ORNELAS [facility], provided care and completed [employer] documentation on this patient. I have reviewed the student's documentation and agree with the findings.
[2021-02-14] MEDS: LORazepam (*CRX) 1 MG TABLET PO ×2 (13:56→20:44)
[2021-02-14] MEDS: WARFARIN (*PBKC) 7.5 MG TABLET PO (17:30)
[2021-02-14] MEDS: HYDROcodone/acetaminophen (*CRX) 10-325 MG TABLET 1 TAB PO (20:43)
[2021-02-14] MEDS: guaiFENesin/CODEINE (*CRX) 200/20 MG 10 ML SYRUP PO (20:43)
[2021-02-14] MEDS: MELATONIN 3 MG TABLET PO (20:44)
[2021-02-14] MEDS: ATORVASTATIN 10 MG TABLET PO (20:44)
[2021-02-15] VITALS (12 sets, daily range): BP systolic 121–144; BP diastolic 61–70; PULSE 72–104; RESP 14–24; TEMP 36.5–36.8; O2SAT 93–97
[2021-02-15] MEDS: IPRATROPIUM BR 0.02% INH SOLN 0.5 MG/2.5 ML VIAL INHALATION ×4 (03:02→21:33)
[2021-02-15] MEDS: ALBUTEROL SULFATE NEB 2.5 MG/0.5 ML INH 5 MG INHALATION (03:02)
[2021-02-15 05:09] LABS: INR 1.6; Prothrombin Time 18.5 Seconds (11.1-14.7)
[2021-02-15 05:11] LABS: Partial Thromboplastin Time 99.9 SECONDS (22.3-36.8)
[2021-02-15] MEDS: HEPARIN SOD/D5W 100 UNITS/ML 25,000 UNITS/250 ML BAG 13 UNITS IV CONT ×2 (05:19→23:57)
[2021-02-15 05:29] LABS: Anion Gap 3 mmol/L (8-16); Blood Urea Nitrogen 43 mg/dL (9-20); Calcium 7.9 mg/dL (8.4-10.2); Carbon Dioxide 37 mmol/L (22-30); Chloride 97 mmol/L (98-107); Estimated CRCL calculation 18 ml/min; Estimated Glomerular Filt Rate 18; Glucose 92 mg/dL (65-110); Potassium 3.4 mmol/L (3.4-5.0); Sodium 137 mmol/L (137-145)
--- NOTE | 2021-02-15 07:40 | PC.NURSE ---
This patient, Ivan Luna, was transferred to [facility] on 02/15/21 at 0740. Personal belongings sent with patient. Report given to ARIEL Zuniga. Appropriate documentation sent with patient.
--- NOTE | 2021-02-15 08:28 | PM.IMPN ---
Progress Note: A&P Additional Plan START OF DOCTOR CHATO?S PROGRESS NOTE Subjective: The patient currently rates his respiratory status to as a 4/10 attends is baseline however he states he is feeling much better than my encounter with him on February 14, 2021. Overnight he denies fever, rigors, nausea, vomiting, cough, wheeze, abdominal pain, chest pain, or any other constitutional complaints. I have explained to the patient his current medical condition plan of care and I have answered all his questions Objective: General: -Alert -No acute distress -No dyspnea -No tachypnea Heart: -Regular rate -Regular rhythm -No murmurs -No gallops -No rubs Lungs: -no wheeze -No rhonchi -No rales -distant breath sounds bilaterally Abdomen: -Normal bowel sounds in all four quadrants -No rebound -No guarding -No tenderness Extremities: -2/4 pulse in all four extremities -No clubbing -No cyanosis -No edema Additional Details / Additional Findings / Exceptions / Miscellaneous: Pertinent Laboratory Results / Pertinent Radiology Results / Pertinent Diagnostic Results / Pertinent Vital Signs: Blood pressure 144/61, pulse 82, patient saturating 95% 2 L, hemoglobin 9.5, INR 1.6, creatinine 3.4 Assessment / Plan: Pneumonia, patient is status post bronchoscopy with pulmonology on February 08, 2021. This demonstrated left of upper lobe necrotizing pneumonia. S still 16 20 mg inhaled q.12 hours plus Augmentin 500 mg p.o. b.i.d. all until left 50 9:00 p.m. on February 27, 2020 1+ linezolid 600 mg p.o. b.i.d. until 11:59 p.m. on February 26, 2021 plus Tessalon Perles 200 mg p.o. t.i.d. plus Xopenex q.6 hours. Appreciate post assistance of Infectious Disease and pulmonology Acute renal failure. Ultrasound unremarkable. Appreciate Nephrology evaluate the patient. One creatinine intermittently. Hyperphosphatemia. Monitor phosphorus levels intermittently. If remains persistently elevated, I will initiate anti hyperphosphatemia occasions COPD. Patient is not O2 dependent. Anoro Ellipta 62.5/25 mc inhalation daily plus Xopenex q.6 hours plus Tessalon Perles 200 mg p.o. t.i.d. plus Solu-Medrol 40 mg IV daily Pulmonary embolism. Heparin drip per protocol until INR is therapeutic between level of 2 and 3. Coumadin 7.5 mg p.o. daily BPH Hyperlipidemia. Lipitor 10 mg p.o. q.h.s. Hypertension. Hydralazine 75 mg p.o. t.i.d. History nephrolithiasis Psoriasis Abdominal aortic aneurysm. Outpatient monitoring with his primary care physician Thrombocytosis. Will monitor platelet count intermittently Anemia of chronic disease. Will monitor hemoglobin level intermittently. Patient's fecal occult blood positive for which he will need follow-up with gastroenterology upon discharge Microscopic hematuria. Outpatient follow-up with Urology especially given his smoking history Grade 1 diastolic dysfunction Flatulence. Simethicone 125 mg p.o. q.i.d. Tobacco abuse. Patient counseled regarding smoking cessation GI prophylaxis. Protonix 40 mg p.o. daily Constipation. Colace 200 mg p.o. b.i.d. plus senna 17.2 mg p.o. b.i.d. Usually prophylaxis. Heparin drip per protocol until INR is therapeutic between level of 2 and 3. Coumadin 7.5 mg p.o. daily Disposition: I will speak with other doctors involved in this case however anticipate discharge in 24-72 hours END OF DOCTOR CHATO?S PROGRESS NOTE Subjective Date/time seen: 02/15/21 08:28 Objective Data Vital Signs Vital Signs: Vital Signs - 24 hr 02/14/21 10:06 02/14/21 10:16 02/14/21 12:30 Temperature 97.7 F Pulse Rate 99 101 H 102 H Respiratory Rate 18 18 28 H Blood Pressure 128/61 Pulse Oximetry 97 02/14/21 14:27 02/14/21 14:34 02/14/21 16:00 Temperature 97.9 F Pulse Rate 96 95 84 Respiratory Rate 18 18 28 H Blood Pressure 143/59 H Pulse Oximetry 99 02/14/21 19:46 02/14/21 20:00 02/14/21 20:10 Temperatur
[2021-02-15] MEDS: BENZONATATE 100 MG CAPSULE 200 MG PO ×3 (09:32→17:02)
[2021-02-15] MEDS: hydrALAZINE HCL 25 MG TABLET 75 MG PO ×3 (09:32→17:03)
[2021-02-15] MEDS: SIMETHICONE 125 MG CHEW TAB PO ×4 (09:32→20:13)
[2021-02-15] MEDS: AMOXICILLIN/CLAVULANATE K 500-125 MG TAB 1 TABLET PO ×2 (09:33→17:03)
[2021-02-15] MEDS: LINEZOLID 600 MG TABLET PO ×2 (09:33→20:13)
[2021-02-15] MEDS: PANTOPRAZOLE 40 MG TABLET PO (09:33)
[2021-02-15] MEDS: methylPREDNISolone SOD SUCC 40 MG VIAL IV PUSH (09:33)
--- NOTE | 2021-02-15 10:02 | PM.PNPUL ---
Progress Note: A&P Assessment and Plan (1) Acute kidney injury: Code(s): N17.9 - Acute kidney failure, unspecified Status: Acute Assessment and Plan: Has had a good urinary output. Creatinine trending down, 3.7 today. (2) Pulmonary embolism: Onset Date: ~01/2021 Qualifiers: Chronicity: acute Code(s): I26.99 - Other pulmonary embolism without acute cor pulmonale Status: Acute Assessment and Plan: Patient has been hemodynamically stable. patient on IV heparin drip, also started on warfarin. (3) Acute respiratory failure with hypoxia: Code(s): J96.01 - Acute respiratory failure with hypoxia Status: Acute Assessment and Plan: Respiratory failure initially hypercapnic and hypoxemic related to underlying COPD and pulmonary embolism. Continue with supplemental oxygen at current flow. (4) Chronic obstructive pulmonary disease: Code(s): J44.9 - Chronic obstructive pulmonary disease, unspecified Status: Acute Assessment and Plan: Probable advanced COPD, based on chest CT findings and presence of hypercapnia on admission. No PFTs are available. Will continue with nebulized short-acting bronchodilators. No wheezing on physical exam. (5) Community acquired pneumonia: Code(s): J18.9 - Pneumonia, unspecified organism Status: Acute Assessment and Plan: Respiratory status slowly improving. FiO2 down to 2 liiters/minute. Inflammatory indices improving. BAL fungal stain showed no fungal elements. AFB smear pending. Patient without wheezing on physical exam today. Continue IV steroids for COPD exacerbation. nebulized Mucomyst was discontinued as sputum production significantly decreased. continue with current antibiotic regimen for now. following completion of IV antibiotic regimen, will consider adding oral antibiotic for possible anaerobic pneumonia. 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 The patient stated that he just recently stopped smoking over the last couple weeks. Patient is currently on 2 L per nasal cannula at this time. nicotine patch PRN. He will probably require home oxygen. (7) Benign prostatic hyperplasia: Code(s): N40.0 - Benign prostatic hyperplasia without lower urinary tract symptoms Status: Acute Assessment and Plan: Continue with home medications. NO evidence of urainry obstruction. (8) Hypertension: Code(s): I10 - Essential (primary) hypertension Status: Chronic Assessment and Plan: P.r.n. hydralazine hold lisinopril and Lasix for today. (9) Hyperlipidemia: Code(s): E78.5 - Hyperlipidemia, unspecified Status: Acute Assessment and Plan: Continue with home medication. Atorvastatin Subjective Date/time seen: 02/15/21 10:02 patient feeling better this a.m.. No new respiratory symptoms. Remaining on supplemental oxygen at 2 liters/minute. Some dry cough no sputum production. Still on IV heparin while receiving warfarin. Review of Systems Review of Systems: All systems reviewed & are unremarkable except as noted in HPI and below ( homeH & P) Exam Narrative: GENERAL APPEARANCE: Well developed, well nourished, alert and cooperative, who appears to be in mild respiratory distress while receiving supplemental oxygen via nasal cannula at 2L/min. SKIN: Inspection of the skin reveals psoriatic plaques mostly in his lower extremities, also elbows. HEENT: Sclerae anicteric and conjunctivae pink and moist. Extraocular movements were intact and pupils were equal, round. NECK: Supple. There was no thyroid enlargement, and no tenderness, or masses were felt. CHEST: Increased AP diameter and normal contour without any kyphoscoliosis. LUNGS: Distant breath sounds bilaterally no wheezing
--- NOTE | 2021-02-15 10:58 | PCRCNOTE ---
Pt room empty for 0800 tx
--- NOTE | 2021-02-15 11:57 | PCPTNOTE ---
Patient refused treatment this session due to not wanting to move due to continued chest pain and abdominal pain. Voiced his frustrations on moving rooms due to him supposable doing better but he continues to feel worse.
[2021-02-15 13:56] LABS: Complement Total CH50 59 U/mL (31-60)
[2021-02-15] MEDS: WARFARIN (*PBKC) 7.5 MG TABLET PO (17:01)
--- NOTE | 2021-02-15 17:35 | PM.PNNEP ---
Progress Note: A&P Assessment and Plan (1) Acute kidney injury: Code(s): N17.9 - Acute kidney failure, unspecified Status: Acute Assessment and Plan: Acute renal failure: Differential diagnosis includes allergic interstitial nephritis, acute tubular necrosis, or actually a vasculitic process in the situation. Bronchoscopy was done but I do not see any pathology. It did have fungal growth. I will order serological studies for vasculitic panel. Hold diuretics. He has underlying COPD, quite a bit of wheezing and diminished air entry, predominantly has pulmonary problems rather than fluid problems related to acute renal failure. Pneumoniae with cavitation, with underlying acute on chronic respiratory failure with hypercapnia and hypoxia ANCA vasculitic panel is still pending. Complements C3 and C4 are normal Creatinine is stabilizing, not improving as fast. Will follow fortunately he is making urine with no other manifestations from a renal standpoint Subjective Date/time seen: 02/15/21 17:35 Still experiencing some shortness of breath. Green catheter in place. Urinary output 16 50 yesterday Exam Narrative: Looks overall better, JVD negative, moist oral mucosa, no cyanosis, diminished breath sounds, right basilar coarse sounds, soft abdomen, edema negative, alert awake, not as restless. No tremors, oriented x3. Objective Data Vital Signs Vital Signs: Vital Signs - 24 hr 02/14/21 19:46 02/14/21 20:00 02/14/21 20:10 Temperature 36.1 C L Pulse Rate 96 88 Respiratory Rate 24 H 18 Blood Pressure 128/57 L Pulse Oximetry 99 96 97 02/14/21 20:26 02/15/21 03:04 02/15/21 03:17 Temperature Pulse Rate 81 85 72 Respiratory Rate 18 18 14 Blood Pressure Pulse Oximetry 97 02/15/21 04:00 02/15/21 08:00 02/15/21 13:59 Temperature 36.5 C 36.7 C Pulse Rate 79 82 104 H Respiratory Rate 20 24 H 20 Blood Pressure 137/67 144/61 H Pulse Oximetry 97 95 02/15/21 14:00 02/15/21 14:02 02/15/21 14:10 Temperature 36.8 C Pulse Rate 99 92 Respiratory Rate 18 20 Blood Pressure 121/70 Pulse Oximetry 94 93 Intake/Output Intake/Output: Intake & Output 02/12/21 02/13/21 02/14/21 02/15/21 23:59 23:59 23:59 23:59 Intake Total 1720 2360 1800 350 Output Total 3800 2180 3450 900 Balance -2080 180 -1650 -550 Meds/Results Medications: Active Medications Generic Name Dose Route Start Last Admin Trade Name Freq PRN Reason Stop Dose Admin Hydrocodone Bitart/Acetaminophen 1 tab 02/04/21 10:59 02/14/21 20:43 Hydrocodone/Acetaminophen (*Crx) 10-325 Mg Tablet PO 1 tab Q4H PRN Administration Pain Rated 7-10 Albuterol 5 mg 02/04/21 10:56 02/15/21 03:02 Albuterol Sulfate Neb 2.5 Mg/0.5 Ml Inh INHALATION 5 mg Q4HRT PRN Administration Shortness Of Breath Amoxicillin/Clavulanate Potassium 1 tablet 02/15/21 08:45 02/15/21 17:03 Amoxicillin/Clavulanate K 500-125 Mg Tab PO 1 tablet BIDWM DAYANA Administration Atorvastatin Calcium 10 mg 02/04/21 21:00 02/14/21 20:44 Atorvastatin 10 Mg Tablet PO 10 mg HS DAYANA Administration Benzonatate 200 mg 02/07/21 09:00 02/15/21 17:02 Benzonatate 100 Mg Capsule PO 200 mg TID DAYANA Administration Guaifenesin/Codeine Phosphate 10 ml 02/05/21 14:51 02/14/21 20:43 Guaifenesin/Codeine (*Crx) 200/20 Mg 10 Ml Syrup PO 10 ml Q4H PRN Administration Cough Heparin Sodium (Porcine) 5,500 units 02/05/21 08:42 Heparin Sodium 5,000 Units/Ml Vial IV PUSH PRN PRN aPTT less than 55 seconds Heparin Sodium (Porcine) 3,000 units 02/05/21 08:42 02/13/21 06:13 Heparin Sodium 5,000 Units/Ml Vial IV PUSH 3,000 units PRN PRN Administration aPTT 55 - 70 seconds Hydralazine HCl 75 mg 02/15/21 08:00 02/15/21 17:03 Hydralazine Hcl 25 Mg Tablet PO 75 mg TIDWM DAYANA Administration Heparin Sodium/Dextrose 25,000 units in 250 mls @ 13 mls/hr 02/05/21 10:05 02/15/21 05:
[2021-02-15] MEDS: ATORVASTATIN 10 MG TABLET PO (20:13)
[2021-02-15] MEDS: MELATONIN 3 MG TABLET PO (20:13)
[2021-02-15] MEDS: LORazepam (*CRX) 1 MG TABLET PO (23:53)
[2021-02-16] VITALS (16 sets, daily range): BP systolic 111–126; BP diastolic 56–62; PULSE 94–108; RESP 16–28; TEMP 36.3–37.6; O2SAT 93–97
[2021-02-16] MEDS: IPRATROPIUM BR 0.02% INH SOLN 0.5 MG/2.5 ML VIAL INHALATION ×4 (02:31→20:18)
[2021-02-16 07:04] LABS: INR 2.1; Prothrombin Time 23.4 Seconds (11.1-14.7)
[2021-02-16 07:10] LABS: Anion Gap 7 mmol/L (8-16); Blood Urea Nitrogen 45 mg/dL (9-20); Calcium 8.1 mg/dL (8.4-10.2); Carbon Dioxide 33 mmol/L (22-30); Chloride 99 mmol/L (98-107); Estimated CRCL calculation 19 ml/min; Estimated Glomerular Filt Rate 19; Glucose 95 mg/dL (65-110); Phosphorus 4.2 mg/dL (2.5-4.5); Potassium 3.6 mmol/L (3.4-5.0); Sodium 139 mmol/L (137-145)
--- NOTE | 2021-02-16 07:33 | PM.IMPN ---
Progress Note: A&P Additional Plan START OF DOCTOR CHATO?S PROGRESS NOTE Subjective: The patient currently rates his respiratory status is a 5 out times test is baseline. He offers no complaints at this time. He denies fever, rigors, nausea, vomiting, cough, wheeze, abdominal pain, chest pain, or any other constitutional complaints. I have explained to the patient his current medical condition plan of care and answered all his questions Objective: General: -Alert -No acute distress -No dyspnea -No tachypnea Heart: -Regular rate -Regular rhythm -No murmurs -No gallops -No rubs Lungs: -no wheeze -No rhonchi -No rales -distant breath sounds bilaterally Abdomen: -Normal bowel sounds in all four quadrants -No rebound -No guarding -No tenderness Extremities: -2/4 pulse in all four extremities -No clubbing -No cyanosis -No edema Additional Details / Additional Findings / Exceptions / Miscellaneous: Pertinent Laboratory Results / Pertinent Radiology Results / Pertinent Diagnostic Results / Pertinent Vital Signs: Patient saturating 97% on 2 L, INR 2.1, creatinine 3.2 Assessment / Plan: Pneumonia, patient is status post bronchoscopy with pulmonology on February 08, 2021. This demonstrated left of upper lobe necrotizing pneumonia. S still 16 20 mg inhaled q.12 hours plus Augmentin 500 mg p.o. b.i.d. all until left 50 9:00 p.m. on February 27, 2020 1+ linezolid 600 mg p.o. b.i.d. until 11:59 p.m. on February 26, 2021 plus Tessalon Perles 200 mg p.o. t.i.d. plus Xopenex q.6 hours. Appreciate post assistance of Infectious Disease and pulmonology Acute renal failure. Ultrasound unremarkable. Appreciate Nephrology evaluate the patient. One creatinine intermittently. Hyperphosphatemia. Monitor phosphorus levels intermittently. If remains persistently elevated, I will initiate anti hyperphosphatemia occasions COPD. Patient is not O2 dependent. Anoro Ellipta 62.5/25 mc inhalation daily plus Xopenex q.6 hours plus Tessalon Perles 200 mg p.o. t.i.d. plus Solu-Medrol 40 mg IV daily Pulmonary embolism. Coumadin 5 mg p.o. daily. Check daily PT/INR BPH Hyperlipidemia. Lipitor 10 mg p.o. q.h.s. Hypertension. Hydralazine 75 mg p.o. t.i.d. History nephrolithiasis Psoriasis Abdominal aortic aneurysm. Outpatient monitoring with his primary care physician Thrombocytosis. Will monitor platelet count intermittently Anemia of chronic disease. Will monitor hemoglobin level intermittently. Patient's fecal occult blood positive for which he will need follow-up with gastroenterology upon discharge Microscopic hematuria. Outpatient follow-up with Urology especially given his smoking history Grade 1 diastolic dysfunction Flatulence. Simethicone 125 mg p.o. q.i.d. Tobacco abuse. Patient counseled regarding smoking cessation GI prophylaxis. Protonix 40 mg p.o. daily Constipation. Colace 200 mg p.o. b.i.d. plus senna 17.2 mg p.o. b.i.d. Usually prophylaxis. Coumadin 5 mg p.o. daily. Check daily PT/INR Disposition: The patient is medically stable for discharge. I will discuss with case management/social work END OF DOCTOR CHATO?S PROGRESS NOTE Subjective Date/time seen: 02/16/21 07:33 Objective Data Vital Signs Vital Signs: Vital Signs - 24 hr 02/15/21 08:00 02/15/21 13:59 02/15/21 14:00 Temperature 98.0 F 98.3 F Pulse Rate 82 104 H 99 Respiratory Rate 24 H 20 18 Blood Pressure 144/61 H 121/70 Pulse Oximetry 95 94 02/15/21 14:02 02/15/21 14:10 02/15/21 21:37 Temperature Pulse Rate 92 93 Respiratory Rate 20 16 Blood Pressure Pulse Oximetry 93 02/15/21 21:38 02/15/21 21:44 02/15/21 22:00 Temperature 97.7 F Pulse Rate 93 83 93 Respiratory Rate 16 18 Blood Pressure 124/65 Pulse Oximetry 97 97 02/16/21 02:31 02/16/21 02:40 02/16/21 06:00 Temperature 97.4 F L Pulse Rate 96 97 94 Respiratory Rate 16 16 18 Blood Pres
[2021-02-16] MEDS: hydrALAZINE HCL 25 MG TABLET 75 MG PO ×2 (08:12→16:58)
[2021-02-16] MEDS: BENZONATATE 100 MG CAPSULE 200 MG PO ×3 (08:12→16:57)
[2021-02-16] MEDS: LINEZOLID 600 MG TABLET PO ×2 (08:13→20:18)
[2021-02-16] MEDS: SIMETHICONE 125 MG CHEW TAB PO ×4 (08:13→20:17)
[2021-02-16] MEDS: PANTOPRAZOLE 40 MG TABLET PO (08:13)
[2021-02-16] MEDS: methylPREDNISolone SOD SUCC 40 MG VIAL IV PUSH (08:13)
[2021-02-16] MEDS: AMOXICILLIN/CLAVULANATE K 500-125 MG TAB 1 TABLET PO ×2 (08:13→16:57)
--- NOTE | 2021-02-16 10:02 | PM.PNPUL ---
Progress Note: A&P Assessment and Plan (1) Acute kidney injury: Code(s): N17.9 - Acute kidney failure, unspecified Status: Acute Assessment and Plan: Has had good urinary output. Creatinine trending down, 3.4 today. (2) Pulmonary embolism: Onset Date: ~01/2021 Qualifiers: Chronicity: acute Code(s): I26.99 - Other pulmonary embolism without acute cor pulmonale Status: Acute Assessment and Plan: Patient has been hemodynamically stable. Patient off IV heparin drip, on warfarin orally. (3) Acute respiratory failure with hypoxia: Code(s): J96.01 - Acute respiratory failure with hypoxia Status: Acute Assessment and Plan: Respiratory failure initially hypercapnic and hypoxemic related to underlying COPD and pulmonary embolism. Continue with supplemental oxygen at current flow. (4) Chronic obstructive pulmonary disease: Code(s): J44.9 - Chronic obstructive pulmonary disease, unspecified Status: Acute Assessment and Plan: Probable advanced COPD, based on chest CT findings and presence of hypercapnia on admission. No PFTs are available. Will continue with nebulized short-acting bronchodilators and steroids. Switch to oral steroids. No wheezing on physical exam. patient will need follow-up in the outpatient Pulmonary Clinic approximately 2 weeks from the day of discharge. (5) Community acquired pneumonia: Code(s): J18.9 - Pneumonia, unspecified organism Status: Acute Assessment and Plan: Respiratory status slowly improving. FiO2 down to 1 liiter/minute. AFB smear pending. Patient has finished course of IV antibiotics and currently on Augmentin p.o. for possible anaerobic lung infection. I would continuel Augmentin for approximately 2 more weeks. 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 The patient stated that he just recently stopped smoking over the last couple weeks. Patient is currently on 1 L per nasal cannula at this time. nicotine patch PRN. He will probably require home oxygen. (7) Benign prostatic hyperplasia: Code(s): N40.0 - Benign prostatic hyperplasia without lower urinary tract symptoms Status: Acute Assessment and Plan: Continue with home medications. NO evidence of urainry obstruction. (8) Hypertension: Code(s): I10 - Essential (primary) hypertension Status: Chronic Assessment and Plan: P.r.n. hydralazine hold lisinopril and Lasix for today. (9) Hyperlipidemia: Code(s): E78.5 - Hyperlipidemia, unspecified Status: Acute Assessment and Plan: Continue with home medication. Atorvastatin Subjective Date/time seen: 02/16/21 10:02 continues to complain of shortness of breath at rest. Mild cough with no sputum production. No wheezing. Supplemental oxygen has decreased down to 1 L per minute. Review of Systems Review of Systems: All systems reviewed & are unremarkable except as noted in HPI and below ( homeH & P) Exam Narrative: GENERAL APPEARANCE: Well developed, well nourished, alert and cooperative, who appears to be in mild respiratory distress while receiving supplemental oxygen via nasal cannula at 1L/min. SKIN: Inspection of the skin reveals psoriatic plaques mostly in his lower extremities, also elbows. HEENT: Sclerae anicteric and conjunctivae pink and moist. Extraocular movements were intact and pupils were equal, round. NECK: Supple. There was no thyroid enlargement, and no tenderness, or masses were felt. CHEST: Increased AP diameter and normal contour without any kyphoscoliosis. LUNGS: Distant breath sounds bilaterally no wheezing. CARDIAC: There was a regular rate and rhythm without any murmurs, gallops, rubs. ABDOMEN: Soft and nontender with normal bowel soun
[2021-02-16] MEDS: UMECLIDINIUM/VILANTEROL 62.5-25 MCG ELLIPTA 1 PUFF INHALATION (12:23)
--- NOTE | 2021-02-16 13:19 | PCDIET ---
Nutrition Follow-Up Complete: Nutrition Diagnosis: Inadequate oral intake related to poor appetite as evidenced by intake records. Nutrition Goal: Patient to consume 50% of meals/supplements or greater. Goal not met. Patient reports poor appetite and c/o abdominal pain after eating and diarrhea. If medically appropriate, would consider GI consult. Patient does report taking Ensure Enlive (350kcal, 20g protein) three times daily. Recommend increasing this to QID. Heart healthy diet continues. Last recorded weight is 88 kg which is down from last review. Bowel Motility: Last documented BM on 02/15/21. Labs Reviewed: BUN (45), Cr (3.2) Meds Noted: Augmentin, Lipitor, Apresoline, Atrovent, Xopenex, Zyvox, Solu Medrol, Protonix, Phazyme, Anoro, Coumadin Additional Notes: Buttocks macerated. Will continue to monitor with same goal. Nutrition Monitoring and Evaluation: Follow up every 3 days.
[2021-02-16] MEDS: LORazepam (*CRX) 1 MG TABLET PO (14:23)
--- NOTE | 2021-02-16 15:44 | PCCCNOTE ---
On 02/16/21, the student, [Jacquie Streeter], provided care and completed [facility] on this patient. I have reviewed the student's documentation and agree with the findings.
--- NOTE | 2021-02-16 16:39 | PM.PNNEP ---
Progress Note: A&P Assessment and Plan (1) Acute kidney injury: Code(s): N17.9 - Acute kidney failure, unspecified Status: Acute Assessment and Plan: Acute renal failure: Differential diagnosis includes allergic interstitial nephritis, acute tubular necrosis, or actually a vasculitic process in the situation. Bronchoscopy was done but I do not see any pathology. It did have fungal growth. I will order serological studies for vasculitic panel. Hold diuretics. Studies pending ANCA vasculitic panel is still pending. Complements C3 and C4 are normal Creatinine is stabilizing, not improving as fast. Will follow fortunately he is making urine with no other manifestations from a renal standpoint Abdominal pain. Epigastric area. No dyspepsia. He is on PPI. He is simethicone. Subjective Date/time seen: 02/16/21 16:39 Follow-up acute kidney failure Complains of ongoing shortness of breath. Has pain in his epigastric area even prior to coming in. States that he has had diarrhea also for a while. He is on a PPI. He has a Green catheter in place. He had 1150 mL of urine out yesterday Exam Const: General: cooperative and tired appearing HENMT: Head: normal to inspection Mouth: Yes Normal oral and palatal mucosa present Eyes: Conjunctivae: conjunctivae normal Sclera: sclerae normal Neck: Neck: no JVD Resp: Effort & Inspection: normal respiratory effort Auscultation: diminished lung sounds Cardio: Jugular venous distension: no JVD Rhythm: regular rhythm GI: GI Palp: Yes Soft to palpation and No Tenderness to palpation present (GI) Urinary Catheter: Urinary Catheter: patent and draining Skin: General skin exam: normal color and no rashes or lesions noted Neuro: General: oriented to person, oriented to place and oriented to time Objective Data Vital Signs Vital Signs: Vital Signs - 24 hr 02/15/21 21:37 02/15/21 21:38 02/15/21 21:44 Temperature Pulse Rate 93 93 83 Respiratory Rate 16 16 Blood Pressure Pulse Oximetry 97 02/15/21 22:00 02/16/21 02:31 02/16/21 02:40 Temperature 36.5 C Pulse Rate 93 96 97 Respiratory Rate 18 16 16 Blood Pressure 124/65 Pulse Oximetry 97 02/16/21 06:00 02/16/21 08:00 02/16/21 08:30 Temperature 36.3 C L Pulse Rate 94 Respiratory Rate 18 Blood Pressure 117/60 Pulse Oximetry 97 93 93 02/16/21 09:30 02/16/21 09:31 02/16/21 09:37 Temperature Pulse Rate 108 H 101 H Respiratory Rate 16 16 Blood Pressure Pulse Oximetry 93 02/16/21 12:04 02/16/21 13:46 02/16/21 13:56 Temperature Pulse Rate 99 96 Respiratory Rate 16 16 Blood Pressure 111/56 L Pulse Oximetry 02/16/21 14:00 Temperature 36.9 C Pulse Rate 105 H Respiratory Rate 28 H Blood Pressure 124/56 L Pulse Oximetry 96 Intake/Output Intake/Output: Intake & Output 02/13/21 02/14/21 02/15/21 02/16/21 23:59 23:59 23:59 23:59 Intake Total 2360 1800 1200 950 Output Total 2180 3450 1150 800 Balance 180 -1650 50 150 Meds/Results Medications: Active Medications Generic Name Dose Route Start Last Admin Trade Name Freq PRN Reason Stop Dose Admin Hydrocodone Bitart/Acetaminophen 1 tab 02/04/21 10:59 02/14/21 20:43 Hydrocodone/Acetaminophen (*Crx) 10-325 Mg Tablet PO 1 tab Q4H PRN Administration Pain Rated 7-10 Albuterol 5 mg 02/04/21 10:56 02/15/21 03:02 Albuterol Sulfate Neb 2.5 Mg/0.5 Ml Inh INHALATION 5 mg Q4HRT PRN Administration Shortness Of Breath Amoxicillin/Clavulanate Potassium 1 tablet 02/15/21 08:45 02/16/21 08:13 Amoxicillin/Clavulanate K 500-125 Mg Tab PO 1 tablet BIDWM DAYANA Administration Atorvastatin Calcium 10 mg 02/04/21 21:00 02/15/21 20:13 Atorvastatin 10 Mg Tablet PO 10 mg HS DAYANA Administration Benzonatate 200 mg 02/07/21 09:00 02/16/21 12:03 Benzonatate 100 Mg Capsule PO 200 mg TID DAYANA Administration Guaifenesin/Codeine Phosphate 10 ml
[2021-02-16] MEDS: WARFARIN (*PBKC) 5 MG TABLET PO (17:25)
[2021-02-16] MEDS: ATORVASTATIN 10 MG TABLET PO (20:17)
[2021-02-16] MEDS: HYDROcodone/acetaminophen (*CRX) 10-325 MG TABLET 1 TAB PO (20:17)
[2021-02-17] VITALS (13 sets, daily range): BP systolic 121–135; BP diastolic 56–70; PULSE 66–91; RESP 18–24; TEMP 36.2–36.8; O2SAT 95–98
--- NOTE | 2021-02-17 02:29 | PCRCNOTE ---
During 20:00 neb treatment, pt requested not to be awakened for 02:00 treatment. He was advised to let the nurse know if he felt he needed a treatment when he woke up. Pt is currently asleep, so treatment was charted as not administered - pt refused.
[2021-02-17 06:58] LABS: INR 2.3; Prothrombin Time 24.3 Seconds (11.1-14.7)
[2021-02-17 07:11] LABS: Anion Gap 6 mmol/L (8-16); Blood Urea Nitrogen 51 mg/dL (9-20); Calcium 8.5 mg/dL (8.4-10.2); Carbon Dioxide 33 mmol/L (22-30); Chloride 101 mmol/L (98-107); Estimated CRCL calculation 20 ml/min; Estimated Glomerular Filt Rate 20; Glucose 87 mg/dL (65-110); Sodium 140 mmol/L (137-145)
--- NOTE | 2021-02-17 07:21 | PM.IMPN ---
Progress Note: A&P Additional Plan START OF DOCTOR CHATO?S PROGRESS NOTE Subjective: The patient currently rates his respiratory status as a 6 out 10 attends is baseline. He denies fever, rigors, nausea, vomiting, cough, wheeze, abdominal pain, chest pain. I have explained to the patient his current medical condition plan of care and I have answered all his questions Objective: General: -Alert -No acute distress -No dyspnea -No tachypnea Heart: -Regular rate -Regular rhythm -No murmurs -No gallops -No rubs Lungs: -scant left-sided wheeze present -No rhonchi -No rales -distant breath sounds bilaterally Abdomen: -Normal bowel sounds in all four quadrants -No rebound -No guarding -No tenderness Extremities: -2/4 pulse in all four extremities -No clubbing -No cyanosis -No edema Additional Details / Additional Findings / Exceptions / Miscellaneous: Pertinent Laboratory Results / Pertinent Radiology Results / Pertinent Diagnostic Results / Pertinent Vital Signs: Patient saturating 98% 1 L, INR 2.3, creatinine 3.1 Assessment / Plan: Pneumonia, patient is status post bronchoscopy with pulmonology on February 08, 2021. This demonstrated left of upper lobe necrotizing pneumonia. S still 16 20 mg inhaled q.12 hours plus Augmentin 500 mg p.o. b.i.d. all until left 50 9:00 p.m. on February 27, 2020 1+ linezolid 600 mg p.o. b.i.d. until 11:59 p.m. on February 26, 2021 plus Tessalon Perles 200 mg p.o. t.i.d. plus Xopenex q.6 hours. Appreciate post assistance of Infectious Disease and pulmonology Acute renal failure. Ultrasound unremarkable. Appreciate Nephrology evaluate the patient. One creatinine intermittently. Hyperphosphatemia. Monitor phosphorus levels intermittently. If remains persistently elevated, I will initiate anti hyperphosphatemia occasions COPD. Patient is not O2 dependent. Anoro Ellipta 62.5/25 mc inhalation daily plus Xopenex q.6 hours plus Tessalon Perles 200 mg p.o. t.i.d. plus Solu-Medrol 40 mg IV daily Pulmonary embolism. Coumadin 5 mg p.o. daily. Check daily PT/INR BPH Hyperlipidemia. Lipitor 10 mg p.o. q.h.s. Hypertension. Hydralazine 75 mg p.o. t.i.d. History nephrolithiasis Psoriasis Abdominal aortic aneurysm. Outpatient monitoring with his primary care physician Thrombocytosis. Will monitor platelet count intermittently Anemia of chronic disease. Will monitor hemoglobin level intermittently. Patient's fecal occult blood positive for which he will need follow-up with gastroenterology upon discharge Microscopic hematuria. Outpatient follow-up with Urology especially given his smoking history Grade 1 diastolic dysfunction Flatulence. Simethicone 125 mg p.o. q.i.d. Tobacco abuse. Patient counseled regarding smoking cessation GI prophylaxis. Protonix 40 mg p.o. daily Constipation. Colace 200 mg p.o. b.i.d. plus senna 17.2 mg p.o. b.i.d. Usually prophylaxis. Coumadin 5 mg p.o. daily. Check daily PT/INR Disposition: The patient is medically stable for discharge. I will discuss with case management/social work END OF DOCTOR CHATO?S PROGRESS NOTE Subjective Date/time seen: 02/17/21 07:21 Objective Data Vital Signs Vital Signs: Vital Signs - 24 hr 02/16/21 08:00 02/16/21 08:30 02/16/21 09:30 Temperature Pulse Rate 108 H Respiratory Rate 16 Blood Pressure Pulse Oximetry 93 93 02/16/21 09:31 02/16/21 09:37 02/16/21 12:04 Temperature Pulse Rate 101 H Respiratory Rate 16 Blood Pressure 111/56 L Pulse Oximetry 93 02/16/21 13:46 02/16/21 13:56 02/16/21 14:00 Temperature 98.4 F Pulse Rate 99 96 105 H Respiratory Rate 16 16 28 H Blood Pressure 124/56 L Pulse Oximetry 96 02/16/21 20:00 02/16/21 20:20 02/16/21 20:30 Temperature Pulse Rate 96 97 Respiratory Rate 20 18 Blood Pressure Pulse Oximetry 97 95 02/16/21 21:40 02/17/21 05:31 Temperature 99.6 F
[2021-02-17] MEDS: hydrALAZINE HCL 25 MG TABLET 75 MG PO ×3 (08:04→17:18)
[2021-02-17] MEDS: PANTOPRAZOLE 40 MG TABLET PO (08:04)
[2021-02-17] MEDS: AMOXICILLIN/CLAVULANATE K 500-125 MG TAB 1 TABLET PO ×2 (08:04→17:18)
[2021-02-17] MEDS: methylPREDNISolone SOD SUCC 40 MG VIAL IV PUSH (08:04)
[2021-02-17] MEDS: BENZONATATE 100 MG CAPSULE 200 MG PO ×3 (08:05→17:18)
[2021-02-17] MEDS: LINEZOLID 600 MG TABLET PO ×2 (08:05→21:01)
[2021-02-17] MEDS: SIMETHICONE 125 MG CHEW TAB PO ×4 (08:05→21:01)
[2021-02-17] MEDS: LORazepam (*CRX) 1 MG TABLET PO ×2 (08:06→21:01)
[2021-02-17] MEDS: UMECLIDINIUM/VILANTEROL 62.5-25 MCG ELLIPTA 1 PUFF INHALATION (08:28)
[2021-02-17] MEDS: IPRATROPIUM BR 0.02% INH SOLN 0.5 MG/2.5 ML VIAL INHALATION ×3 (08:28→20:23)
[2021-02-17 11:43] LABS: Anti Glomerular Basement Memb <1.0 AI (<1.0)
--- NOTE | 2021-02-17 15:10 | PM.PNNEP ---
Progress Note: A&P Assessment and Plan (1) Acute kidney injury: Code(s): N17.9 - Acute kidney failure, unspecified Status: Acute Assessment and Plan: Acute renal failure: Differential diagnosis includes allergic interstitial nephritis, acute tubular necrosis, or actually a vasculitic process in the situation.\ ANCA vasculitic panel is still pending. Complements C3 and C4 are normal. Glomerular basement membrane antibody negative Creatinine is stabilizing, not improving as fast. fortunately he is making urine with no other manifestations from a renal standpoint A discharge planning in progress. We will need to follow-up on an outpatient basis. Subjective Date/time seen: 02/17/21 15:10 Follow-up acute renal failure Feels beter Exam Narrative: Looks better today, more comfortable in breathing, sitting up in a chair, edema plus, JVD negative, regular rate and rhythm, soft abdomen, nontender, diminished breath sounds Objective Data Vital Signs Vital Signs: Vital Signs - 24 hr 02/16/21 20:00 02/16/21 20:20 02/16/21 20:30 Temperature Pulse Rate 96 97 Respiratory Rate 20 18 Blood Pressure Pulse Oximetry 97 95 02/16/21 21:40 02/17/21 05:31 02/17/21 08:00 Temperature 37.6 C 36.2 C L Pulse Rate 98 91 Respiratory Rate 18 18 Blood Pressure 126/62 135/70 Pulse Oximetry 96 98 96 02/17/21 08:28 02/17/21 08:31 02/17/21 08:37 Temperature Pulse Rate 88 88 85 Respiratory Rate 20 20 18 Blood Pressure Pulse Oximetry 95 02/17/21 12:30 02/17/21 14:00 02/17/21 14:21 Temperature 36.8 C Pulse Rate 91 77 Respiratory Rate 24 H 20 Blood Pressure 128/56 L Pulse Oximetry 96 98 02/17/21 14:29 Temperature Pulse Rate 78 Respiratory Rate 20 Blood Pressure Pulse Oximetry Intake/Output Intake/Output: Intake & Output 02/14/21 02/15/21 02/16/21 02/17/21 23:59 23:59 23:59 23:59 Intake Total 1800 1200 1590 1090 Output Total 3450 1150 1500 800 Balance -1650 50 90 290 Meds/Results Medications: Active Medications Generic Name Dose Route Start Last Admin Trade Name Freq PRN Reason Stop Dose Admin Hydrocodone Bitart/Acetaminophen 1 tab 02/04/21 10:59 02/16/21 20:17 Hydrocodone/Acetaminophen (*Crx) 10-325 Mg Tablet PO 1 tab Q4H PRN Administration Pain Rated 7-10 Albuterol 5 mg 02/04/21 10:56 02/15/21 03:02 Albuterol Sulfate Neb 2.5 Mg/0.5 Ml Inh INHALATION 5 mg Q4HRT PRN Administration Shortness Of Breath Amoxicillin/Clavulanate Potassium 1 tablet 02/15/21 08:45 02/17/21 08:04 Amoxicillin/Clavulanate K 500-125 Mg Tab PO 1 tablet BIDWM DAYANA Administration Atorvastatin Calcium 10 mg 02/04/21 21:00 02/16/21 20:17 Atorvastatin 10 Mg Tablet PO 10 mg HS DAYANA Administration Benzonatate 200 mg 02/07/21 09:00 02/17/21 11:59 Benzonatate 100 Mg Capsule PO 200 mg TID DAYANA Administration Guaifenesin/Codeine Phosphate 10 ml 02/05/21 14:51 02/14/21 20:43 Guaifenesin/Codeine (*Crx) 200/20 Mg 10 Ml Syrup PO 10 ml Q4H PRN Administration Cough Hydralazine HCl 75 mg 02/15/21 08:00 02/17/21 11:59 Hydralazine Hcl 25 Mg Tablet PO 75 mg TIDWM DAYANA Administration Ipratropium [place] 0.5 mg 02/04/21 02:00 02/17/21 14:21 Ipratropium Br 0.02% Inh Soln 0.5 Mg/2.5 Ml Vial INHALATION 0.5 mg Q6HRT DAYANA Administration Levalbuterol HCl 1.25 mg 02/04/21 02:00 02/17/21 14:21 Levalbuterol Neb 1.25 Mg/0.5 Ml INHALATION 1.25 mg Q6HRT DAYANA Administration Linezolid 600 mg 02/15/21 09:00 02/17/21 08:05 Linezolid 600 Mg Tablet PO 600 mg Q12HR DAYANA Administration Lorazepam 1 mg 02/05/21 14:52 02/17/21 08:06 Lorazepam (*Crx) 1 Mg Tablet PO 1 mg Q4H PRN Administration Anxiety Melatonin 3 mg 02/03/21 22:25 02/16/21 20:06 Melatonin 3 Mg Tablet PO Not Given HS DAYANA Methylprednisolone Sodium Succinate 40 mg 02/15/21 09:00 02/17/21 08:04 Methylprednisolon
[2021-02-17] MEDS: WARFARIN (*PBKC) 5 MG TABLET PO (17:19)
[2021-02-17] MEDS: ATORVASTATIN 10 MG TABLET PO (21:01)
[2021-02-18 01:31] VITALS: PULSE 63; RESP 18
[2021-02-18] MEDS: IPRATROPIUM BR 0.02% INH SOLN 0.5 MG/2.5 ML VIAL INHALATION ×2 (01:31→08:48)
[2021-02-18 05:30] VITALS: BP 144/75; PULSE 106; RESP 18; TEMP 37.1; O2SAT 94
[2021-02-18 06:38] LABS: Anion Gap 6 mmol/L (8-16); Blood Urea Nitrogen 56 mg/dL (9-20); Calcium 8.7 mg/dL (8.4-10.2); Carbon Dioxide 30 mmol/L (22-30); Chloride 104 mmol/L (98-107); Estimated CRCL calculation 20 ml/min; Estimated Glomerular Filt Rate 21; Glucose 87 mg/dL (65-110); Potassium 4.2 mmol/L (3.4-5.0); Sodium 140 mmol/L (137-145)
--- NOTE | 2021-02-18 07:11 | PM.IMPN ---
Progress Note: A&P Additional Plan START OF DOCTOR CHATO?S PROGRESS NOTE Subjective: The patient complains of experiencing subjective fever overnight however I see no elevated temperature documented. He denies rigors, nausea, vomiting, cough, wheeze, abdominal pain, chest pain, dyspnea, or any other concerns or complaints. I have explained to the patient his current medical condition plan of care and I have answered all his questions Objective: General: -Alert -No acute distress -No dyspnea -No tachypnea Heart: -Regular rate -Regular rhythm -No murmurs -No gallops -No rubs Lungs: -scant bilateral wheeze present -No rhonchi -No rales -distant breath sounds bilaterally Abdomen: -Normal bowel sounds in all four quadrants -No rebound -No guarding -No tenderness Extremities: -2/4 pulse in all four extremities -No clubbing -No cyanosis -No edema Additional Details / Additional Findings / Exceptions / Miscellaneous: Pertinent Laboratory Results / Pertinent Radiology Results / Pertinent Diagnostic Results / Pertinent Vital Signs: Blood pressure 144/75, heart rate 1 6, creatinine 3 Assessment / Plan: Pneumonia, patient is status post bronchoscopy with pulmonology on February 08, 2021. This demonstrated left of upper lobe necrotizing pneumonia. S still 16 20 mg inhaled q.12 hours plus Augmentin 500 mg p.o. b.i.d. all until left 50 9:00 p.m. on February 27, 2020 1+ linezolid 600 mg p.o. b.i.d. until 11:59 p.m. on February 26, 2021 plus Tessalon Perles 200 mg p.o. t.i.d. plus Xopenex q.6 hours. Appreciate post assistance of Infectious Disease and pulmonology Acute renal failure. Ultrasound unremarkable. Appreciate Nephrology evaluate the patient. One creatinine intermittently. Hyperphosphatemia. Monitor phosphorus levels intermittently. If remains persistently elevated, I will initiate anti hyperphosphatemia occasions COPD. Patient is not O2 dependent. Anoro Ellipta 62.5/25 mc inhalation daily plus Xopenex q.6 hours plus Tessalon Perles 200 mg p.o. t.i.d. plus Solu-Medrol 40 mg IV daily Pulmonary embolism. Coumadin 5 mg p.o. daily. Check daily PT/INR BPH Hyperlipidemia. Lipitor 10 mg p.o. q.h.s. Hypertension. Hydralazine 75 mg p.o. t.i.d. History nephrolithiasis Psoriasis Abdominal aortic aneurysm. Outpatient monitoring with his primary care physician Thrombocytosis. Will monitor platelet count intermittently Anemia of chronic disease. Will monitor hemoglobin level intermittently. Patient's fecal occult blood positive for which he will need follow-up with gastroenterology upon discharge Microscopic hematuria. Outpatient follow-up with Urology especially given his smoking history Grade 1 diastolic dysfunction Flatulence. Simethicone 125 mg p.o. q.i.d. Tobacco abuse. Patient counseled regarding smoking cessation GI prophylaxis. Protonix 40 mg p.o. daily Constipation. Colace 200 mg p.o. b.i.d. plus senna 17.2 mg p.o. b.i.d. Usually prophylaxis. Coumadin 5 mg p.o. daily. Check daily PT/INR Disposition: The patient is medically stable for discharge. I will discuss with case management/social work END OF DOCTOR CHATO?S PROGRESS NOTE Subjective Date/time seen: 02/18/21 07:11 Objective Data Vital Signs Vital Signs: Vital Signs - 24 hr 02/17/21 08:00 02/17/21 08:28 02/17/21 08:31 Temperature Pulse Rate 88 88 Respiratory Rate 20 20 Blood Pressure Pulse Oximetry 96 95 02/17/21 08:37 02/17/21 12:30 02/17/21 14:00 Temperature 98.2 F Pulse Rate 85 91 Respiratory Rate 18 24 H Blood Pressure 128/56 L Pulse Oximetry 96 98 02/17/21 14:21 02/17/21 14:29 02/17/21 20:27 Temperature Pulse Rate 77 78 68 Respiratory Rate 20 20 18 Blood Pressure Pulse Oximetry 02/17/21 20:28 02/17/21 20:37 02/17/21 21:54 Temperature 97.8 F Pulse Rate 66 66 Respiratory Rate 18 18 Blood Pressure 121/59 L Pulse
[2021-02-18 07:21] LABS: INR 2.5; Prothrombin Time 26.3 Seconds (11.1-14.7)
[2021-02-18] MEDS: SIMETHICONE 125 MG CHEW TAB PO ×2 (08:23→12:31)
[2021-02-18] MEDS: AMOXICILLIN/CLAVULANATE K 500-125 MG TAB 1 TABLET PO (08:23)
[2021-02-18] MEDS: hydrALAZINE HCL 25 MG TABLET 75 MG PO ×2 (08:23→12:31)
[2021-02-18] MEDS: BENZONATATE 100 MG CAPSULE 200 MG PO ×2 (08:24→12:32)
[2021-02-18] MEDS: PANTOPRAZOLE 40 MG TABLET PO (08:24)
[2021-02-18] MEDS: methylPREDNISolone SOD SUCC 40 MG VIAL IV PUSH (08:24)
[2021-02-18] MEDS: LINEZOLID 600 MG TABLET PO (08:24)
[2021-02-18 08:48] VITALS: PULSE 76; RESP 18
[2021-02-18] MEDS: UMECLIDINIUM/VILANTEROL 62.5-25 MCG ELLIPTA 1 PUFF INHALATION (08:48)
[2021-02-18 08:49] LABS: Myeloperoxidase Antibody <1.0 AI (<1.0); Proteinase 3 PR3 Antibodies <1.0 AI (<1.0)
[2021-02-18 08:51] VITALS: PULSE 78; RESP 18; O2SAT 95
[2021-02-18 08:57] VITALS: PULSE 72; RESP 18
--- NOTE | 2021-02-18 10:25 | PM.DS ---
DS: Admitting Diagnosis Discharge Date 10:20 a.m. on February 18, 2021 Admitting Diagnosis Left upper lobe necrotizing pneumonia DS: Summary Hospital Course Hospital Course: See discharge summary Time Spent with Patient Time attestation: Total time spent providing and/or coordinating discharge services: START OF DOCTOR CHATO?Miko DISCHARGE SUMMARY Date of Admission: February 03, 2021 Date of Discharge: 10:26 a.m. on February 18, 2021 Primary Diagnosis: Pneumonia, patient status post bronchoscopy with pulmonology on February 08, 2021 which demonstrated left upper lobe necrotizing pneumonia Secondary Diagnosis: Acute renal failure, renal ultrasound unremarkable Hyperphosphatemia COPD, patient is not O2 dependent Pulmonary embolism BPH Hyperlipidemia Hypertension History of nephrolithiasis Psoriasis Abdominal aortic aneurysm Thrombocytosis Anemia of chronic disease with fecal occult blood positive stool Microscopic hematuria Grade 1 diastolic dysfunction Tobacco abuse Constipation, resolved Consultations: Nephrology, pulmonology, Infectious Disease Disposition: The patient will be advised follow-up with Nephrology as directed for diagnosis acute renal failure The patient is advised follow-up with the pulmonology as directed for diagnosis of COPD, not O2 dependent as well as diagnosis of complicated pneumonia The patient is advised follow-up with Infectious Disease as directed for diagnosis complicated pneumonia The patient is advised follow-up with his primary care physician 7 days post discharge for post hospitalization evaluation as well as ongoing monitoring of his history of abdominal aortic aneurysm The patient is advised follow-up with Urology 2 weeks post discharge for diagnosis microscopic hematuria The patient is advised follow-up with Gastroenterology to 4 weeks post discharge for diagnosis of fecal occult blood positive stool The patient require check a BMP 5 days post discharge for diagnosis of acute renal failure The patient will require check a PT/INR 5 days post discharge for diagnosis pulmonary embolism Discharge Medications: Lipitor 10 mg p.o. q.h.s. A normal Ellipta 62.5/25 m elation daily Coumadin 5 mg p.o. daily Prednisone 10 mg p.o.: 4 tabs daily x4 days then 3 tabs daily x4 days then 2 tabs daily x4 days then 1 tab daily x4 days. Quantity sufficient. 0 refills Augmentin Aricept 5 mg p.o. b.i.d.. Quantity 18. 0 refills Zyvox 600 mg p.o. b.i.d.. Quantity 18. 0 refills Proventil HFA: 90 mg per spray: 2 puffs q.4 hours p.r.n. shortness of breath/wheeze Hydralazine 75 mg p.o. t.i.d. END OF DOCTOR CHATO?S DISCHARGE SUMMARY DS: Data Data Completed and Pending Completed studies during hospitalization: Pending at discharge 02/08/21 15:11 Cytology [PTH] Routine Labs on day of discharge: Labs from last 24 hours 02/18/21 02/18/21 02/12/21 05:43 05:43 16:48 PT 26.3 H INR 2.5 Sodium 140 Potassium 4.2 Chloride 104 Carbon Dioxide 30 Anion Gap 6 L BUN 56 H Creatinine 3.00 H Estim Creat Clear Calc 20 Estimated GFR 21 L Glucose 87 Calcium 8.7 Proteinase 3 (PR3) Ab Myeloperoxidase Ab Glomerular Base Memb Ab <1.0 02/12/21 16:48 PT INR Sodium Potassium Chloride Carbon Dioxide Anion Gap BUN Creatinine Estim Creat Clear Calc Estimated GFR Glucose Calcium Proteinase 3 (PR3) Ab <1.0 Myeloperoxidase Ab <1.0 Glomerular Base Memb Ab Preliminary micro results at discharge 02/08/21 15:24 Fungal Culture - Preliminary Bronchial Aspirate Left Upper Lobe Ivania albicans Discharge Plan Discharge Consulting providers: Ramon Palafox Discharging Clinician: Dr. Hurtado Patient Disposition: SNF Activity: as tolerated Diet: heart healthy, renal, low sodium, low cholesterol and low fat Dis
[2021-02-18 11:32] LABS: EDCOVIDSCREEN Negative (Negative)
== END 2021-02-18 13:20 | DRG 193 ==
LOC: ANHED 13:50 → ANH2MED 18:37 → ANHIMU 02-05 14:58 → ANH3MEDSUR 02-18 10:25 → ANH2MED 02-19 15:24 → ANH3MEDSUR 02-19 15:24 → ANHIMU 02-19 15:24
PROVIDERS: Internal Medicine; Internal Medicine Nephrology; Internal Medicine Pulmonary Disease; Nurse Practitioner; Admitting Provider Internal Medicine; Emergency Provider Emergency Medicine; PCP Family Medicine; Visit Provider Internal Medicine
PROC: 0BJ08ZZ Inspection of Tracheobronchial Tree, Via Natural or Artificial Opening Endoscopic (ICD-10-PCS; CPT 31622; principal; 2021-02-08 14:00)
DX: J18.9 Pneumonia, unspecified organism (principal); I26.99 Other pulmonary embolism without acute cor pulmonale; J96.01 Acute respiratory failure with hypoxia; J85.0 Gangrene and necrosis of lung; N17.9 Acute kidney failure, unspecified; Z20.822 Contact with and (suspected) exposure to COVID-19; J43.9 Emphysema, unspecified; N40.0 Benign prostatic hyperplasia without lower urinary tract symptoms; E78.5 Hyperlipidemia, unspecified; D63.8 Anemia in other chronic diseases classified elsewhere; E83.39 Other disorders of phosphorus metabolism; L40.9 Psoriasis, unspecified; R31.29 Other microscopic hematuria; E87.5 Hyperkalemia; I71.4 Abdominal aortic aneurysm, without rupture; I11.0 Hypertensive heart disease with heart failure; I50.9 Heart failure, unspecified; D75.839 Thrombocytosis, unspecified; R14.3 Flatulence; K59.00 Constipation, unspecified; Z99.81 Dependence on supplemental oxygen; Z98.49 Cataract extraction status, unspecified eye; Z96.1 Presence of intraocular lens; Z87.891 Personal history of nicotine dependence; Z87.442 Personal history of urinary calculi
CPT/HCPCS: 36415; 36600; 71045; 71046; 71250; 76775; 80048; 80053; 81001; 81002; 81050; 82274; 82550; 82570; 82728; 82805; 82948; 83520; 83540; 83550; 83615; 83735; 83880; 84100; 84133; 84156; 84300; 84443; 84484; 84540; 85025; 85610; 85730; 86001; 86021; 86140; 86160; 86162; 87015; 87070; 87102; 87106; 87116; 87205; 87206; 87281; 87385; 87426; 87449; 88104; 88108; 88184; 88305; 88312; 93005; 94640; 94667; 97110; 97116; 97165; 97530; 97535; 99285; A9270; C9803; G0378; J0456; J1100; J1644; J1940; J2020; J2370; J2405; J2543; J2704; J2920; J2930; J7030; J7040; J7060; J7120

== ENCOUNTER 2021-02-27 16:41 | Outpatient (CLI) | payer MEDICARE, SELFPAY ==
[2021-02-27 17:17] LABS: Alanine Aminotransferase 38 U/L (4-50); Albumin Level 4.2 g/dL (3.5-5.1); Alkaline Phosphatase 67 U/L (38-126); Anion Gap 14 mmol/L (8-16); Aspartate Amino Transferase 23 U/L (17-59); Bilirubin,Total 0.3 mg/dL (0.2-1.3); Blood Urea Nitrogen 38 mg/dL (9-20); Calcium 8.4 mg/dL (8.4-10.2); Carbon Dioxide 21 mmol/L (22-30); Chloride 105 mmol/L (98-107); Estimated Glomerular Filt Rate 37; Glucose 123 mg/dL (65-110); Potassium 4.9 mmol/L (3.4-5.0); Sodium 140 mmol/L (137-145)
== END 2021-02-27 16:42 | disposition home or self-care (01) ==
PROVIDERS: PCP Family Medicine; Visit Provider Internal Medicine Pulmonary Disease
DX: N17.9 Acute kidney failure, unspecified (principal)
CPT/HCPCS: 36415; 80053

== ENCOUNTER 2021-03-26 09:01 | Outpatient (CLI) | payer MEDICARE, SELFPAY ==
--- NOTE | ~2021-03-26 | US_ITS ---
EXAMINATION: US aorta DATE: 03/26/2021 09:58 INDICATION: Abdominal aortic aneurysm. TECHNIQUE: Grayscale, color Doppler, and pulsed Doppler images of the aorta and common iliac arteries were obtained. COMPARISON: Ultrasound 03/12/2020, chest CT 02/06/2021, CT abdomen and pelvis 08/04/2009 FINDINGS: The aorta measured up to 2.8 cm. The right common iliac artery measures 1.2 cm. The left common iliac artery measures 1.1 cm. IMPRESSION: 1. No abdominal aortic aneurysm visualized. Note that the prior CT demonstrates an aortic aneurysm at the level of the diaphragm, which is an area not well evaluated by ultrasound. Reviewed, dictated and finalized at location A. RINARY PRACTICE MANAGER IMPRESSION: 1. No abdominal aortic aneurysm visualized. Note that the prior CT demonstrates an aortic aneurysm at the level of the diaphragm, which is an area not well ev aluated by ultrasound.
== END 2021-03-26 09:02 | disposition home or self-care (01) ==
PROVIDERS: PCP Family Medicine; Visit Provider Family Medicine
DX: I71.4 Abdominal aortic aneurysm, without rupture (principal)
CPT/HCPCS: 76775

== ENCOUNTER 2021-03-28 08:04 | Outpatient (CLI) | payer MEDICARE, SELFPAY ==
--- NOTE | ~2021-03-28 | CT_ITS ---
EXAMINATION: CT diagnostic chest wo con EXAM DATE: 03/28/2021 09:28 INDICATION: J44.9 - Chronic obstructive pulmonary disease, unspecified. TECHNIQUE: Spiral CT of the chest without contrast. Axial, coronal and sagittal images of the chest were reviewed. Coronal maximum intensity pixel images of chest reviewed. The dose-length product ( DLP) for this examination was 365.21 mGy-cm. The exposure was tailored according to patient size (au to mA exposure control), and iterative reconstruction (ASIR) was used as additional dose reduction te chnique. Comparison is made to prior examination from 02/06/2021. FINDINGS: There is moderate emphysema. There is significant interval impression in the previously se en left lung pneumonia, but there has been development of left upper lobe cavitation in that region, scarring and atelectasis. Appears consistent with postinfectious residua. No evidence of acute airspa ce disease on this examination. Resolution of previously seen pleural effusions. Tracheobronchial tree is patent. Normalization of previously seen reactive mediastinal lymph nodes. There is no pneumothorax. Heart normal in size. There is moderate coronary arterial calcification, arterial sclerosis. Mildly aneurysmal descendin g thoracic aorta, measuring 3.8 cm at the hiatus. Small bilateral nephrolithiasis.. Upper abdomen is unremarkable. There is mild thoracic spondylosis without osteoblastic or osteolytic lesions identi fied. IMPRESSION: 1. Left upper lobe scarring and cavitation, postinfectious residua. 2. Moderate emphysema. Reviewed, dictated and finalized at location B. LINE TECHNICIAN
--- NOTE | 2021-03-28 12:38 | WPDSIXMINUTE ---
Six Minute Walk Procedure Procedure Performed Pulmonary Stress Test (6 min walk) Six Minute Walk This is a 6 minute walk test. The test was performed and interpreted in accordance with the 2014 ERS/ATS task force guidelines. Findings: The patient's resting room air oxygen saturation measured by pulse oximetry was 92% and her heart rate was 100 bpm. Patient ambulated for 305 meters and oxygen saturation remained 88 to 95%. Heart rate at the end of the study was 135 bpm. The patient should be evaluated for supplemental oxygen at rest or with ambulation. There are no prior studies for comparison.
--- NOTE | 2021-03-28 12:50 | WPDPFTINT ---
PFT Procedure Performed PFT Procedure Performed Spirometry with Pre/Post Bronchodilator Plethysmography (Lung Vol) Diffusing Cap (DLCO) Flow Vol Loop PFT Interpretation This is a pulmonary function test with pre and post-bronchodilator spirometry, plethysmography and diffusing capacity. The test was performed and results interpreted in accordance with the 2019 and 2005 ATS/ERS Task Force guidelines respectively using the Global Lung Function Initiative-2012 reference equations. Patient demonstrated good effort and cooperation. Reproducibility criteria were met. The quality of the pre bronchodilator spirometry maneuver was Grade A and post bronchodilator spirometry maneuver was Grade B. Findings: Spirometry: There is decreased maximal expiratory airflow at all lung volumes with concave expiratory flow tracing. The contour of the inspiratory flow tracing is normal. The pre bronchodilator FVC is 3.25 L, 91% predicted. The pre bronchodilator FEV1 is 1.49 L, 55% predicted. The FEV1: FVC ratio is 46%. The post bronchodilator FVC is 3.28 L, representing 1% increase. The post bronchodilator FEV1 is 1.54 L, representing a 3% increase. The post bronchodilator FEV1: FVC ratio is 47%. Plethysmography: The total lung capacity is 5.59 L, 89% predicted. The functional residual capacity is 3.95 L, 119% predicted. The residual volume is 2.34 L, 101% predicted. Diffusing capacity: The absolute diffusion capacity is 10.5, 44% predicted. The diffusing capacity corrected for alveolar volume is 2.37, 59% predicted. Impression: There is a moderately severe obstructive abnormality without significant improvement after inhaling a single dose of albuterol. The lung volumes are normal. The absolute diffusing capacity is moderately decreased and remains moderately decreased when corrected for alveolar volume. There are no prior studies for comparison
== END 2021-03-28 08:05 | disposition home or self-care (01) ==
LOC: ANHPFT 08:07
PROVIDERS: PCP Family Medicine; Visit Provider Internal Medicine Pulmonary Disease
DX: R06.00 Dyspnea, unspecified (principal); J44.9 Chronic obstructive pulmonary disease, unspecified; J18.9 Pneumonia, unspecified organism; J40 Bronchitis, not specified as acute or chronic; Z72.0 Tobacco use; I25.10 Atherosclerotic heart disease of native coronary artery without angina pectoris; I70.90 Unspecified atherosclerosis; I71.2 Thoracic aortic aneurysm, without rupture; M47.814 Spondylosis without myelopathy or radiculopathy, thoracic region; N20.0 Calculus of kidney
CPT/HCPCS: 71250; 94060; 94618; 94726; 94729

== ENCOUNTER 2022-04-22 17:31 | Outpatient (CLI) | payer MEDICARE, SELFPAY ==
--- NOTE | ~2022-04-22 | XR_ITS ---
EXAMINATION: XR chest 2V Exam Date/Time: 04/22/2022 17:45 CAR MANAGER HISTORY: OTHER PNEUMONIA UNSPECIFIED ORGANISM Comparison: 02/14/2021, CT chest 10/26/2021 and 03/28/2021. RESULT: Lines, tubes, and devices: None. Lungs and pleura: Large cavitary lesion in the left upper lobe. Emphysematous change. Increased reti culonodular opacities in the left lower lung. Cardiomediastinal silhouette: Stable. Other: No acute osseous or upper abdominal finding. IMPRESSION: Peripheral left lower lung opacities may reflect atypical infection or progression of chronic interst itial/bronchiolitic change. Reviewed, dictated and finalized at location K. MANAGER IMPRESSION: Peripheral left lower lung opacities may reflect atypical infection or progress ion of chronic interstitial/bronchiolitic change.
== END 2022-04-22 17:32 | disposition home or self-care (01) ==
PROVIDERS: PCP Family Medicine; Visit Provider Family Medicine
DX: J18.8 Other pneumonia, unspecified organism (principal); R91.8 Other nonspecific abnormal finding of lung field
CPT/HCPCS: 71046

== ENCOUNTER 2023-08-31 15:36 | Emergency (ER) | payer MEDICARE, SELFPAY ==
[2023-08-31] VITALS (10 sets, daily range): BP systolic 110–131; BP diastolic 65–84; PULSE 87–117; RESP 16–28; TEMP 37; O2SAT 84–100
--- NOTE | ~2023-08-31 | XR_ITS ---
EXAMINATION: XR chest 2V DATE: 08/31/2023 16:42 INDICATION: Shortness of breath. TECHNIQUE: Frontal and lateral views of the chest were obtained. COMPARISON: None. FINDINGS: There are lucencies in the lungs, consistent with emphysema. There are airspace opacities i n the lower lung zones. No pleural effusion or pneumothorax. The heart size is normal. The central pu lmonary arteries are enlarged, consistent with pulmonary artery hypertension. IMPRESSION: 1. Emphysema. 2. Airspace opacities in the lower lung zones, consistent with atelectasis versus scarring. Reviewed, dictated and finalized at location E. IMPRESSION: 1. Emphysema. 2. Airspace opacities in the lower lung zones, consistent with atelectasis vers us scarring.
--- NOTE | ~2023-08-31 | CT_ITS ---
EXAMINATION: CTA chest PE protocol DATE: 08/31/2023 18:33 INDICATION: Difficulty breathing. TECHNIQUE: Computed tomography angiography (CTA) of the chest was performed with 100 mL Omnipaque-350 intravenous contrast timed to evaluate the pulmonary arteries. Coronal maximum intensity projection 3D-reconstructions were created by the technologist. Automated exposure control and iterative reconst ruction technique were employed. The dose-length product was 479.19 mGy-cm. COMPARISON: None. FINDINGS: There is moderate emphysema. There are a few nodules in lingula measuring up to 10 mm. Ther e is mild atelectasis bilaterally. There is mucous plugging in right lower lobe. There is scarring in left upper lobe. No pleural effusion. The heart size is normal. No pericardial effusion. There are a cute pulmonary emboli involving all lobes including in the main right and left pulmonary arteries. Th ere is mild thoracic spondylosis. IMPRESSION: 1. Extensive acute pulmonary emboli bilaterally. I called this result to Dr. Self. 2. Moderate emphysema. 3. Mucous plugging in right lower lobe. 4. Nodules in lingula measuring up to 10 mm which may be infection. Noncontrast low-dose chest CT is recommended in 3 months to exclude malignancy. Reviewed, dictated and finalized at location E. IMPRESSION: 1. Extensive acute pulmonary emboli bilaterally. I called this result to Dr. Hal foster. 2. Moderate emphysema. 3. Mucous plugging in right lower lobe. 4. Nodules in lingula measuring up to 10 mm which may be infection. Noncontrast low-dose chest CT is recommended in 3 months to exclude malignancy.
--- NOTE | 2023-08-31 15:53 | ECG_ITS ---
SEE SCANNED COPY FOR CONFIRMED REPORT MTDD
[2023-08-31 16:20] LABS: Basophils Absolute Auto 0.1 K/mm3 (0.0-0.1); Basophils Percent Auto 0.3 % (0.2-1.2); Eosinophils Absolute Auto 0.3 K/mm3 (0-0.3); Eosinophils Percent Auto 2.3 % (0-4.4); Hematocrit 46.5 % (42.0-52.0); Hemoglobin 14.4 g/dL (14.0-18.0); Immature Granulocyte Absolute 0.07 K/mm3 (0.00-0.031); Immature Granulocyte Percent A 0.5 % (0-0.5); Lymphocytes Absolute Auto 1.22 K/mm3 (0.9-3.2); Lymphocytes Percent Auto 8.4 % (18.3-44.2); Mean Corpuscular Hemoglobin 29.1 pg (26-34); Mean Corpuscular Volume 93.9 fl (80-100); Mean Platelet Volume 10.6 fl (7.4-10.4); Monocytes Absolute Auto 1.6 K/mm3 (0.1-0.6); Monocytes Percent Auto 11.1 % (2.6-8.5); Neutrophils Absolute Auto 11.2 K/mm3 (1.3-6.7); Neutrophils Percent Auto 77.4 % (45.5-73.1); Platelet Count Result 243 k/mm3 (150-375); Red Blood Count 4.95 M/mm3 (4.6-6.20); Red Cell Distribution Width 14.7 % (11.5-14.5); White Blood Count 14.5 K/mm3 (4.5-10.0)
[2023-08-31 16:36] LABS: Alanine Aminotransferase 30 U/L (6-50); Albumin Level 4.3 g/dL (3.5-5.1); Alkaline Phosphatase 105 U/L (38-126); Anion Gap 7 mmol/L (4-12); Aspartate Amino Transferase 32 U/L (17-59); Bilirubin,Total 0.7 mg/dL (0.2-1.3); Blood Urea Nitrogen 15 mg/dL (9-20); Carbon Dioxide 25 mmol/L (22-30); Chloride 108 mmol/L (98-107); Estimated CRCL calculation 54 ml/min; Estimated Glomerular Filt Rate > 60; Glucose 136 mg/dL (65-110); Potassium 4.9 mmol/L (3.4-5.0); Sodium 140 mmol/L (137-145)
[2023-08-31] MEDS: IPRATROPIUM 0.5 MG/ALBUTEROL SULFATE 2.5 MG AMPUL.NEB 3 ML INHALATION (16:43)
[2023-08-31 16:50] LABS: NT Pro B Type Natriuretic Pept 549 pg/mL (19.9-100)
[2023-08-31 17:11] LABS: D Dimer 4.65 ug/mL (<0.48)
[2023-08-31 17:24] LABS: Influenza A QL RT-PCR Negative (Negative); Influenza B QL RT-PCR Negative (Negative); RSV RNA, RT-PCR Negative (Negative); SARS-CoV-2 RNA PCR Negative (Negative)
[2023-08-31 18:58] LABS: Basophils Percent Auto 0.2 % (0.2-1.2); Eosinophils Absolute Auto 0.1 K/mm3 (0-0.3); Eosinophils Percent Auto 0.5 % (0-4.4); Hemoglobin 13.6 g/dL (14.0-18.0); Immature Granulocyte Absolute 0.05 K/mm3 (0.00-0.031); Immature Granulocyte Percent A 0.4 % (0-0.5); Lymphocytes Absolute Auto 1.28 K/mm3 (0.9-3.2); Mean Corpuscular HGB Conc 31.6 g/dl (32-36); Mean Corpuscular Hemoglobin 29.3 pg (26-34); Mean Corpuscular Volume 92.7 fl (80-100); Mean Platelet Volume 10.3 fl (7.4-10.4); Monocytes Absolute Auto 1.4 K/mm3 (0.1-0.6); Monocytes Percent Auto 10.9 % (2.6-8.5); Platelet Count Result 231 k/mm3 (150-375); Red Blood Count 4.64 M/mm3 (4.6-6.20); Red Cell Distribution Width 14.9 % (11.5-14.5); White Blood Count 12.8 K/mm3 (4.5-10.0)
[2023-08-31 19:18] LABS: INR 1.1; Prothrombin Time 14.5 Seconds (11.1-14.7)
[2023-08-31 19:19] LABS: Partial Thromboplastin Time 30.4 Seconds (22.3-36.8)
[2023-08-31] MEDS: HEPARIN SODIUM 5,000 UNITS/ML VIAL 6000 UNITS IV PUSH (19:41)
[2023-08-31] MEDS: HEPARIN SOD/D5W 100 UNITS/ML 25,000 UNITS/250 ML BAG 13.5 UNITS IV CONT (19:48)
--- NOTE | 2023-08-31 20:34 | PM.IMHP ---
H&P: HPI History of Present Illness Date/Time: 08/31/23 20:34 [facility] Past Medical History Medical History (Updated 08/31/23 @ 19:37 by Cleo Self MD) Abdominal aortic aneurysm AF (atrial fibrillation) Atherosclerosis of aorta Atherosclerotic heart disease of [place] coronary artery without angina pectoris Benign prostatic hyperplasia Benign prostatic hyperplasia with lower urinary tract symptoms Chronic kidney disease, stage 2 (mild) Chronic kidney disease, stage 3a Chronic obstructive pulmonary disease Chronic obstructive pulmonary disease with (acute) exacerbation Cigarette nicotine dependence without complication Hyperlipidemia Hypertensive chronic kidney disease with stage 1 through stage 4 chronic kidney disease, or unspecified chronic kidney disease Invasive pulmonary aspergillosis Kidney stones Nicotine dependence, cigarettes, in remission Pneumonia Psoriasis Total retinal detachment, right eye Urinary incontinence Surgical History Surgical History History of cataract extraction with lens replacement History of inguinal hernia repair History of lithotripsy History of open reduction and internal fixation (ORIF) procedure Right ankle fracture. Family History Family History Mother Parkinson's disease Lung cancer Sibling Acute myocardial infarction Diabetes mellitus Father Pulmonary embolism Social History Social History (Updated 03/18/23 @ 10:40 by Venkat Jaquez MD) Social History: Surrogate decision maker: Micki Luna, spouse. Code status: Full code. the patient stated that he has 10 children He denies any alcohol marijuana or illicit drugs. Smoking packs per day: 0.5 Smoking cigarettes per day: 10.0 Years smoked: 55 Smoking pack-years: 27.50 Smoking status: Current every day smoker Tobacco type: cigarettes Second hand tobacco smoke exposure: Yes Additional smoking assessment comments: currently relapsed and smoking several cigarettes per day, also vaping Alcohol intake: never Substance use: never Substance use type: does not use Lack of Transportation: No Lack of Food: Never True Current Housing: I Have Housing Concerned About Future Housing: No Difficulty Paying Gas/Electric Bills: No Difficulty Paying for Meds: No Currently Unemployed: No Difficulty w/ Childcare or Family Care: No Living arrangements: with family Additional living arrangements comments: Resides in [place] with his . 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 Gender identity (if verbalized by the patient): Male Sexual Orientation (if Verbalized by the Patient): Straight or Heterosexual Spiritual care concerns: No Meds Home Medications and Allergies Home Medications Medication Instructions Recorded Confirmed Type linezolid 600 mg tablet 600 mg PO Q12H 05/21/22 03/18/23 History clofazimine 50 mg capsule 100 mg PO DAILY 08/13/22 03/18/23 History omadacycline 150 mg tablet (Nuzyra) See Rx Instructions PO .COMPLEX 08/13/22 03/18/23 History umeclidinium 62.5 mcg-vilanterol 1 inh inhalation DAILY #60 ea 02/21/23 03/18/23 Rx 25 mcg/actuation powdr for inhalation (Anoro Ellipta) clobetasol 0.05 % topical cream 1 applic topical BID #60 grams 03/18/23 03/18/23 Rx hydralazine 25 mg tablet 25 mg PO TID #270 tabs 05/09/23 Rx hydralazine 50 mg tablet 50 mg PO TID #270 tabs 05/09/23 Rx atorvastatin 10 mg tablet See Rx Instructions .Route 06/10/23 Rx .COMPLEX #90 tabs meclizine 25 mg tablet See Rx Instructions .Route 06/17/23 Rx .COMPLEX #30 tabs furosemide 20 mg tablet See Rx Instructions .Route 06/27/23 Rx .COMPLEX #90 tabs albuterol sulfate 90 mcg/actuation 1 inh inhalation Q4H #6.7 grams 08/26/23 Rx aerosol inhaler Allergies Allergy/AdvReac Type Severity Reaction Status Luis
--- NOTE | 2023-08-31 20:52 | ED.SOB ---
HPI - SOB/Dyspnea General Chief Complaint: Shortness of Breath/Dyspnea Stated Complaint: dyspnea Time Seen by Provider: 08/31/23 16:20 History of Present Illness HPI Narrative: patient presents here with increasing respiratory difficulty over the last few months, remote history of PE treated with anticoagulation now off anticoagulation, COPD, CHF. has tried albuterol without improvement Related Data Home Medications Medication Instructions Recorded Confirmed linezolid 600 mg tablet 600 mg PO Q12H 05/21/22 03/18/23 clofazimine 50 mg capsule 100 mg PO DAILY 08/13/22 03/18/23 omadacycline 150 mg tablet (Nuzyra) See Rx Instructions PO .COMPLEX 08/13/22 03/18/23 Allergies Allergy/AdvReac Type Severity Reaction Status Date / Time No Known Allergies Allergy Verified 03/18/23 09:35 Review of Systems Review of Systems: All systems reviewed & are unremarkable except as noted in HPI and below PMFSH Past Medical History Medical History (Updated 08/31/23 @ 19:37 by Cleo Self MD) Abdominal aortic aneurysm AF (atrial fibrillation) Atherosclerosis of aorta Atherosclerotic heart disease of [place] coronary artery without angina pectoris Benign prostatic hyperplasia Benign prostatic hyperplasia with lower urinary tract symptoms Chronic kidney disease, stage 2 (mild) Chronic kidney disease, stage 3a Chronic obstructive pulmonary disease Chronic obstructive pulmonary disease with (acute) exacerbation Cigarette nicotine dependence without complication Hyperlipidemia Hypertensive chronic kidney disease with stage 1 through stage 4 chronic kidney disease, or unspecified chronic kidney disease Invasive pulmonary aspergillosis Kidney stones Nicotine dependence, cigarettes, in remission Pneumonia Psoriasis Total retinal detachment, right eye Urinary incontinence Surgical History Surgical History History of cataract extraction with lens replacement History of inguinal hernia repair History of lithotripsy History of open reduction and internal fixation (ORIF) procedure Right ankle fracture. Family History Family History Mother Parkinson's disease Lung cancer Sibling Acute myocardial infarction Diabetes mellitus Father Pulmonary embolism Social History Social History (Updated 03/18/23 @ 10:40 by Venkat Jaquez MD) Social History: Surrogate decision maker: Micki Luna, spouse. Code status: Full code. the patient stated that he has 10 children He denies any alcohol marijuana or illicit drugs. Smoking packs per day: 0.5 Smoking cigarettes per day: 10.0 Years smoked: 55 Smoking pack-years: 27.50 Smoking status: Current every day smoker Tobacco type: cigarettes Second hand tobacco smoke exposure: Yes Additional smoking assessment comments: currently relapsed and smoking several cigarettes per day, also vaping Alcohol intake: never Substance use: never Substance use type: does not use Lack of Transportation: No Lack of Food: Never True Current Housing: I Have Housing Concerned About Future Housing: No Difficulty Paying Gas/Electric Bills: No Difficulty Paying for Meds: No Currently Unemployed: No Difficulty w/ Childcare or Family Care: No Living arrangements: with family Additional living arrangements comments: Resides in [place] with his . 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 Gender identity (if verbalized by the patient): Male Sexual Orientation (if Verbalized by the Patient): Straight or Heterosexual Spiritual care concerns: No Exam Narrative: EXAMINATION OF ORGAN SYSTEMS/BODY AREAS: Constitutional: Vital signs per nursing GENERAL: dyspneic HEAD: Normal with no signs of head trauma. EYES: EOMI, conjunctiva normal ENT: Hearing grossly intact LUNGS: dyspneic and labored
[2023-08-31] MEDS: HEPARIN SOD/D5W 100 UNITS/ML 25,000 UNITS/250 ML BAG 14 UNITS IV CONT (23:07)
== END 2023-08-31 23:27 | disposition short-term general hospital (02) ==
PROVIDERS: Preventive Medicine Aerospace Medicine; Emergency Provider Emergency Medicine; PCP Family Medicine
DX: I26.99 Other pulmonary embolism without acute cor pulmonale (principal); J43.9 Emphysema, unspecified; Z20.822 Contact with and (suspected) exposure to COVID-19; I50.9 Heart failure, unspecified; I13.0 Hypertensive heart and chronic kidney disease with heart failure and stage 1 through stage 4 chronic kidney disease, or unspecified chronic kidney disease; N18.31 Chronic kidney disease, stage 3a; I48.91 Unspecified atrial fibrillation; I70.0 Atherosclerosis of aorta; I25.10 Atherosclerotic heart disease of native coronary artery without angina pectoris; N40.1 Benign prostatic hyperplasia with lower urinary tract symptoms; N39.498 Other specified urinary incontinence; E78.5 Hyperlipidemia, unspecified; Z87.442 Personal history of urinary calculi; L40.9 Psoriasis, unspecified; F17.210 Nicotine dependence, cigarettes, uncomplicated; F17.290 Nicotine dependence, other tobacco product, uncomplicated; Z87.01 Personal history of pneumonia (recurrent); Z86.711 Personal history of pulmonary embolism; Z96.1 Presence of intraocular lens; Z98.49 Cataract extraction status, unspecified eye; R91.8 Other nonspecific abnormal finding of lung field; J98.09 Other diseases of bronchus, not elsewhere classified; R00.0 Tachycardia, unspecified; I49.1 Atrial premature depolarization
CPT/HCPCS: 36415; 71046; 71275; 80053; 83880; 85025; 85380; 85610; 85730; 87637; 93005; 94640; 96365; 96366; 99291; J1644; Q9967